=== PATIENT | female | born 1980 | race Caucasian/White ===

== ENCOUNTER 2024-07-14 16:10 | Emergency (ER) | payer MEDICARE, SELFPAY ==
[2024-07-14 16:14] VITALS: BP 101/62
--- NOTE | 2024-07-14 17:37 | ED.GENMED ---
History of Present Illness
<Lindsey Ferris PA-C - Last Filed: 07/15/24 00:28>
General
Chief Complaint: Catheter/Tube Problem
Source: patient
Exam Limitations: none
Time Seen by Provider: 07/14/24 16:58
Nursing documentation reviewed up to this point in time: agreed with
History of Present Illness
History of Present Illness:
Patient is a 44-year-old female with history hypertension, diabetes recently discharged from [facility] 2 days ago for UTI complicated by left kidney abscess with left nephrostomy tube and drain placement presenting today with disconnection
of drain bag. Patient states bag became disconnected earlier this morning accidentally. She came here she was already in the area.
Patient states she was admitted for approximately 10 days at [facility] receiving IV antibiotics prior to drain placement. She was discharged 2 days ago with drain in place and oral antibiotics. She believes she is scheduled for a CT scan
in 2 weeks to reevaluate.
At this time�patient denies any fever, abdominal pain, urinary complaints. No significant back pain.
Patient denies any other concerns today other than reconnection of drain bag
Past History
<Lindsey Ferris PA-C - Last Filed: 07/15/24 00:28>
Past History
ED Past Medical History: [place] and Other
ED Past Surgical History: Appendectomy and Cholecystectomy
Social History
Tobacco: Non-smoker
Alcohol: None
Drug: None
Living: with family
Employment: Employed
Family History
Family History: CAD and Cancer
Review of Systems
<HEIKE Quinonez Last Filed: 07/15/24 00:28>
Review of Systems
Allergies reviewed?: Yes
All Other Systems: ROS reviewed and negative except as documented in HPI and ROS
Phy Exam
<Lindsey Ferris PA-C - Last Filed: 07/15/24 00:28>
Physical Exam
Physical Exam:
Vitals: Patient's vital signs are stable. Afebrile
General: Patient is in no apparent distress
Skin: Warm and dry, no rashes or lesions
Head: Normocephalic, atraumatic
Eyes: Sclera nonicteric. EOMs intact. No nystagmus.
Throat: Protecting airway
Neck: Normal ROM, no cervical spine tenderness, no meningismus
Cardiac: Regular rate and rhythm, no murmurs.
Pulm: Normal respiratory effort, no wheezes, rales, rhonchi heard on exam.
Abdomen: Abdomen soft. No abdominal tenderness.
Back: Left nephrostomy tube in place bandage. No surrounding erythema, warmth, or red streaking.
Extremities: No evidence of cyanosis or edema. Palpable DP pulses bilaterally
Neuro: AAOx3. Grossly intact.
Psychiatric: Normal affect.
Course
<Lindsey Ferris PA-C - Last Filed: 07/15/24 00:28>
Vital Signs
Initial and Last Documented VS:
Initial Vital Signs
Temp Pulse Resp BP Pulse Ox
98.2 F 83 20 101/62 95
07/14/24 16:14 07/14/24 16:14 07/14/24 16:14 07/14/24 16:14 07/14/24 16:14
Last Documented Vital Signs
Temp Pulse Resp BP Pulse Ox
98.2 F 88 16 100/61 98
07/14/24 16:14 07/14/24 19:06 07/14/24 19:06 07/14/24 19:06 07/14/24 19:06
<Brian Holder DO - Last Filed: 07/14/24 18:18>
Vital Signs
Initial and Last Documented VS:
Initial Vital Signs
Temp Pulse Resp BP Pulse Ox
98.2 F 83 20 101/62 95
07/14/24 16:14 07/14/24 16:14 07/14/24 16:14 07/14/24 16:14 07/14/24 16:14
Last Documented Vital Signs
Temp Pulse Resp BP Pulse Ox
98.2 F 88 16 100/61 98
07/14/24 16:14 07/14/24 19:06 07/14/24 19:06 07/14/24 19:06 07/14/24 19:06
<Lindsey Ferris PA-C - Last Filed: 07/15/24 00:28>
MDM/Problems Addressed
Differential Diagnosis Includes:
Not limited to: Nephrostomy tube complication
MDM/Problems Addressed:
44-year-old female with history as documented presenting with dislodged bag from left nephrostomy tube drain. Patient recently discharged from [facility] after admission for UTI complicated by left renal abscess with nephrostomy tube and
drain placement. Patient denies any fever, back pain, abdominal pain, vomiting, or urinary symptoms. Vitals and physical exam as above. Patient afebrile. Left nephrostomy tube in place draining bloody fluid. Bandage in place without surrounding
erythema, warmth, or red streaking. Benign abdominal exam. Patient perfusing well. Case discussed with interventional radiology who recommended replacement of bag with KELLI bulb drain. IR provided set up for KELLI bulb drain. Verbal consent obtained
by patient. KELLI drain attached to left nephrostomy tube which remained in place. Patient tolerated procedure well. Patient will be discharged with follow-up as scheduled upon discharge from [facility] with urology, IR, nephrology. Advised to
continue taking p.o. antibiotics as prescribed. Close return precautions discussed with patient who verbalized understanding.
Chronic conditions affecting care:
UTI complicated by left renal abscess with left nephrostomy tube and drain placement
Acute Exacerbation and/or Progression of Chronic Illness:
Dislodged drain bag from left nephrostomy tube
<Lindsey Ferris PA-C - Last Filed: 07/15/24 00:28>
*Pulse Oximetry
Patient hypoxic: no
*EKG
Interpreted by ED Provider?: NA
*Automobile Drivers Interpretation
Rate: Automobile Drivers- N/A
*Critical Care Note
Total Time (30-74mins, 75-104mins- exclusive of procedures): Not Applicable
<Lindsey Ferris PA-C - Last Filed: 07/15/24 00:28>
Patient Management
Discussion with other providers: [employer] (Case discussed with interventional radiology)
Escalation/DeEscalation of care consider admission/obs:
Discharge with outpatient follow-up
ED Attending Note
<Lindsey Ferris PA-C - Last Filed: 07/15/24 00:28>
-
Portions of this chart may have been created with voice recognition software.� Occasional wrong word or��sound alike� substitutions may have occurred due to the inherent limitations of voice recognition software.
<Brian Holder DO - Last Filed: 07/14/24 18:18>
ED Attending Note
Patient seen and examined by attending physician: Yes
I performed the substantive portion of visit, reviewed & personally made and approve the management plan that is documented in note by myself or KRISTINE.: Yes
ED Attending Note:
I have seen and evaluated the patient with a [id number] encounter. I have spoken to the advance practicer provider and involved in the medical history, the physical exam, medical decision making.
Evaluation and management service: agree unless noted differently below.
Results interpretation: agree unless noted differently below.
Focused HPI: 44-year-old female presenting with dislodged back from her left nephrostomy tube. Patient states he was recently placed and she is currently on antibiotics. Patient states she had a kidney abscess
Physical exam: Sitting bed comfortably. Left nephrostomy tube in place but bag is dislodged
Medical Decision Making: Case discussed with interventional radiology who supplied set up for KELLI drain. The KELLI drain was attached to the nephrostomy tube and we discussed continuing her antibiotics as prescribed
Discharge Plan
Departure
Patient Disposition: Home (Routine Discharge)
Date of Disposition: 07/14/24
Time of Disposition: 18:49
Patient with high blood pressure during this ER visit?: No
Condition: Good
Covid-19: Not Applicable
Discharge Problem:
Complication of nephrostomy tube
Instructions: How to care for a nephrostomy tube
Prescriptions:
No Action
cholecalciferol (vitamin D3) [Vitamin D3] 400 UNITS tablet
400 units PO DAILY
carisoprodol [Soma] 350 MG tablet
350 mg PO QIDPRN PRN (Reason: back pain)
Depo-Provera
104 mg INJ .Q3MTHS
Patient Comments:
q 12 weeks
Tylenol
1,000 mg PO PRN PRN (Reason: aches legs)
metformin 500 MG tablet
500 mg PO BID
carvedilol [Coreg] 25 MG tablet
50 mg PO BID
gabapentin 600 MG tablet
600 mg PO TID
atorvastatin 10 MG tablet
10 mg PO QPM
lorazepam 0.5 MG tablet
0.5 mg PO PRN PRN (Reason: anxiety)
hydrocodone-acetaminophen 1 TABLET tablet
1 tab PO Q4HPRN PRN (Reason: neck and back pain)
ibuprofen 600 MG tablet
600 mg PO TID
fluticasone propionate 1 SPRAY spray,suspension
2 spray intranasal DAILY
escitalopram oxalate 20 MG tablet
20 mg PO DAILY
duloxetine 60 MG capsule,delayed release(DR/EC)
60 mg PO DAILY
Referrals:
Lowell Cooper Jr., DO [Family Provider] - Follow up in 2-3 days
Activity Restrictions/Additional Instructions:
Return to the emergency department with any fevers, chills, severe abdominal pain or back pain, dislodged nephrostomy tube, concerns of clogged tube, worsening in current symptoms, or any other concerns
-As discussed�your nephrostomy tube remained in place while in the emergency department. The bag was replaced with a KELLI bulb drain.
-As discussed�it is imperative that you follow-up appropriately as scheduled with urology, interventional radiology as arranged upon discharge from [facility]
-It is important stable hydrated and get plenty of rest.
Monitor very closely for signs of infection and return promptly to the emergency department. Continue to take antibiotics as prescribed.
Interventions
Interventions:
*Risk Screen - Suicide Last Done: 07/14/24 19:07
*General Assessment Last Done: 07/14/24 16:14
*Neglect/Abuse Screening Last Done: 07/14/24 19:07
*ED- Fall Risk Assessment Last Done: 07/14/24 19:07
*ED COVID-19 Vaccine History Last Done: 07/14/24 18:07
*Nursing Disposition Last Done: 07/14/24 19:07
GT-[place]iz[place]-Pgyvczqtcr Assessment Last Done: 07/14/24 18:07
ED-Female Genitourinary Assessment Last Done: 07/14/24 18:07
Discharge Date and Time
Discharge Date/Time: 07/14/24 19:09
Print Language: INDONESIAN
[2024-07-14 19:06] VITALS: BP 100/61
== END 2024-07-14 19:09 | disposition home or self-care (01) ==
LOC: EMR 16:10
PROVIDERS: EMERGENCY PHYSICIAN Student in an Organized Health Care Education/Training Program; FAMILY PHYSICIAN Family Medicine
DX: T83.022A Displacement of nephrostomy catheter, initial encounter (principal); X58.XXXA Exposure to other specified factors, initial encounter; Z43.6 Encounter for attention to other artificial openings of urinary tract; E11.9 Type 2 diabetes mellitus without complications; I10 Essential (primary) hypertension
CPT/HCPCS: 99282

== ENCOUNTER 2024-07-29 22:40 | Inpatient (IN) | payer MEDICARE, SELFPAY ==
[2024-07-29] VITALS (11 sets, daily range): BP systolic 89–109; BP diastolic 61–77; BMI 36.6; BMI 36.2
[2024-07-29 17:53] LABS: % Basophils 0.6 % (0-2); % Eosinophils 1.4 % (0-6); % Immature Granulocytes 0.5 % (0-0.5); % Lymphocytes 23.9 % (20.5-51.1); % Monocytes 5.3 % (1.7-9.3); % Neutrophils 68.3 % (42.2-75.2); Absolute Basophils 0.1 10^3/uL (0-0.2); Absolute Eosinophils 0.2 10^3/uL (0-0.7); Absolute Immature Granulocytes 0.1 10^3/uL (0-0.05); Absolute Lymphocytes 3.4 10^3/uL (1.2-3.4); Absolute Monocytes 0.8 10^3/uL (0.1-0.6); Absolute Neutrophils 9.6 10^3/uL (1.4-6.5); Hemoglobin 8.4 g/dL (12.0-16.0); Mean Corp Hgb Conc. 31.1 g/dL (33.0-37.0); Mean Corpuscular Hgb 29.3 pg (27.0-31.0); Mean Corpuscular Volume 94.1 fL (81.0-99.0); Nucleated Red Blood Cells % 0 %; Platelet Count 295 10^3/uL (130-400); Red Blood Cell Count 2.87 10^6/uL (4.20-5.40); Red Cell Dist. Width 15.3 % (11.5-14.5); White Blood Cell Count 14.1 10^3/uL (4.8-10.8)
[2024-07-29 18:04] LABS: Urine Albumin 2+ (Neg - Trace); Urine Bilirubin Negative (Negative); Urine Character Cloudy (Clear); Urine Color Yellow; Urine Glucose Negative (Negative); Urine Ketone Negative (Negative); Urine Leukocyte 3+ (Negative); Urine Nitrite Negative (Negative); Urine Occult Blood 4+ (Negative); Urine Urobilinogen Negative (Neg - 1+)
[2024-07-29 18:07] LABS: HCG, Serum Qualitative Screen Negative
[2024-07-29 18:11] LABS: ALT (SGPT) 15 U/L (0-35); AST (SGOT) 16 U/L (14-36); Albumin 4.2 g/dl (3.5-5.0); Alkaline Phosphatase 70 U/L (38-126); Blood Urea Nitrogen 27 mg/dl (7-17); Carbon Dioxide 23 mmol/L (22-30); Chloride 105 mmol/L (98-107); Estimated Creatinine Clearance 73 ml/min; Glucose 193 mg/dl (70-99); Potassium 4.7 mmol/L (3.5-5.1); Sodium 141 mmol/L (135-145); Total Bilirubin 0.4 mg/dl (0.2-1.3); Total Protein 7.8 g/dl (6.3-8.2); eGFR 57.96
--- NOTE | 2024-07-29 18:11 | ED.GENMED ---
History of Present Illness
General
Chief Complaint: Malaise
Source: patient
Exam Limitations: none
Time Seen by Provider: 07/29/24 17:14
History of Present Illness
History of Present Illness:
44-year-old female issue #1 was '[facility] screwed up '. She has had an ongoing issue with UTI pyelonephritis and abscess requiring ongoing drainage. She was recently readmitted to [facility] with anemia. She required a unit of blood. No
source of anemia was found. She was discharged 5 days ago. Since then she has had ongoing fatigue weakness myalgias. Severely fatigued today.
Past History
Past History
ED Past Medical History: [place] and Other
ED Past Surgical History: Appendectomy, Cholecystectomy and Other (Left nephrostomy drain)
Social History
Tobacco: Non-smoker
Alcohol: None
Drug: None
Living: with family
Employment: Employed
Family History
Family History: CAD and Cancer
Review of Systems
Review of Systems
All Other Systems: Not applicable
Constitutional: Reports fatigue and night sweats
Respiratory: Reports no symptoms
Cardiac: Reports no symptoms
ABD/GI: Denies abdominal pain
Phy Exam
Physical Exam
Physical Exam:
GENERAL: Alert and oriented in no apparent distress
EYE: Orbits normal.
NECK: Supple
ENT: Pharynx without erythema
CARDIAC: Regular rate and rhythm without any obvious murmurs.
LUNGS: Clear breath sounds,normal
ABDOMEN: Soft, without focal tenderness or distention. Drain left posterior mid back. No surrounding erythema or drainage. Rectal without significant stool blood test negative
NEUROLOGICAL: Alert and oriented , grossly non-focal
SKIN: Warm and dry, pale. No rash.
MUSCULOSKELETAL: No edema,no deformity.Good color
PSYCH: Normal and appropriate interaction.
Course
Orders/Labs/Results
Orders:
Orders
07/29/24 16:53
EKG [Electrocardiogram (*1)] Urgent
Reason for Study: Palpitations
EKG- Treatment ONCE
07/29/24 17:25
Cardiac Monitoring- Treatment ONCE
IV Insert/Care/Rem.- Treatment PRN
Test Result ONCE
07/29/24 17:32
Type+Screen Urgent
Complete Blood Count/With Diff Urgent
Comprehensive Metabolic Panel Urgent
HCG, Serum Qualitative Screen Urgent
07/29/24 17:45
Urinalysis Reflex To Culture Urgent
Date Specimen was Collected: 07/29/24
Time Specimen was Collected: 17:44
Urine Microscopic Reflex Cult Urgent
Urine Culture Urgent
SANGITA Source: U
Specimen Description:
Date Specimen was Collected: 07/29/24
Time Specimen was Collected: 17:44
07/29/24 18:33
CT Pe/abd/pel W Urgent
Reason For Exam: fatigue tachycardia(PE study). L nephrostomy.
07/29/24 20:58
Urinalysis Reflex To Culture Urgent
Date Specimen was Collected: 07/29/24
Time Specimen was Collected: 20:52
Comment: Clean Catch
Urine Microscopic Reflex Cult Urgent
Urine Culture Urgent
SANGITA Source: U
Specimen Description:
Date Specimen was Collected: 07/29/24
Time Specimen was Collected: 20:52
Abnormal Lab Results
07/29/24 07/29/24 07/29/24
17:32 17:45 20:58
WBC 14.1 H 10^3/uL
(4.8-10.8)
RBC 2.87 L 10^6/uL
(4.20-5.40)
Hgb 8.4 L g/dL
(12.0-16.0)
Hct 27.0 L %
(37.0-47.0)
MCHC 31.1 L g/dL
(33.0-37.0)
RDW 15.3 H %
(11.5-14.5)
MPV 11.0 H fL
(7.4-10.4)
Abs Immat Gran (auto) 0.1 H 10^3/uL
(0-0.05)
Absolute Neuts (auto) 9.6 H 10^3/uL
(1.4-6.5)
Absolute Monos (auto) 0.8 H 10^3/uL
(0.1-0.6)
BUN 27 H mg/dl
(7-17)
Creatinine 1.2 H mg/dL
(0.6-1.0)
Glucose 193 H mg/dl
(70-99)
Ur Occult Blood Reflex 4+ A 2+ A
(Negative) (Negative)
Leukocyte Esterase Rfl 3+ A 3+ A
(Negative) (Negative)
Urine RBC 11-15 A /HPF 7-10 A /HPF
(0-2) (0-2)
Urine WBC (Reflex) >100 A /HPF 90-100 A /HPF
(0-5) (0-5)
Urine Bacteria (Reflex) Moderate A Few A
(Negative) (Negative)
Urine Albumin (Reflex) 2+ A 1+ A
(Neg - Trace) (Neg - Trace)
07/29/24 17:32
07/29/24 17:32
Vital Signs
Initial and Last Documented VS:
Initial Vital Signs
Temp Pulse Resp BP Pulse Ox
98.4 F 154 18 109/77 98
07/29/24 16:49 07/29/24 16:49 07/29/24 16:49 07/29/24 16:49 07/29/24 16:49
Last Documented Vital Signs
Temp Pulse Resp BP Pulse Ox
98.4 F 91 16 108/71 99
07/29/24 16:49 07/29/24 20:15 07/29/24 20:15 07/29/24 21:00 07/29/24 21:00
MDM/Problems Addressed
Differential Diagnosis Includes:
Patient describing possible recurrent infectious issues. She states she had a CT 4 days ago that showed some improvement with hopes of removing the drain in 2 weeks. She is still on antibiotics. It is a cephalosporin. She had night sweats last
evening. She has had no blood or tarry stools. Source of her anemia is unknown. She did get a unit of blood while in the hospital. She left had a hemoglobin of 8 point something. Hemoglobin is 8.4 now. Leukocytosis nonspecific at this time.
Trying to get test results from [facility].
*Radiology
Radiology exam reviewed: radiology read reviewed (Tip of tube in cortex of kidney. Some inflammatory changes)
*Pulse Oximetry
Patient hypoxic: no
*Legal Practice Manager Interpretation
Rate: tachycardiac
Interpretation: abnormal
Heart Rate: 150
Rhythm: sinus
*Critical Care Note
Total Time (30-74mins, 75-104mins- exclusive of procedures): 40
Update Note
Update Note:
We will repeat the urine. Is contaminated. Patient became quite tachycardic sinus tach in the 140s returning from the bathroom. She states she does have tachycardia issues in the past.
Complicated patient with recent UTI/pyelonephritis/kidney abscess. Currently has nephrostomy tube. Recurring fever night sweats leukocytosis. Anemia appears stable although etiology uncertain. Possible anemia of chronic disease. Warrants
inpatient management
ED Attending Note
-
Portions of this chart may have been created with voice recognition software.� Occasional wrong word or��sound alike� substitutions may have occurred due to the inherent limitations of voice recognition software.
Discharge Plan
Departure
Patient Disposition: Admit
Date of Disposition: 07/29/24
Time of Disposition: 21:37
Admit to: Telemetry
Presentation/result/management discussed w/ accepting MD/DO: Hospitalist
Discharge Problem:
History of renal abscess, History of pyelonephritis, Possible recurring infection
Prescriptions:
No Action
cholecalciferol (vitamin D3) [Vitamin D3] 400 UNITS tablet
400 units PO DAILY
carisoprodol [Soma] 350 MG tablet
350 mg PO QIDPRN PRN (Reason: back pain)
Depo-Provera
104 mg INJ .Q3MTHS
Patient Comments:
q 12 weeks
Tylenol
1,000 mg PO PRN PRN (Reason: aches legs)
metformin 500 MG tablet
500 mg PO BID
carvedilol [Coreg] 25 MG tablet
50 mg PO BID
gabapentin 600 MG tablet
600 mg PO TID
atorvastatin 10 MG tablet
10 mg PO QPM
lorazepam 0.5 MG tablet
0.5 mg PO PRN PRN (Reason: anxiety)
hydrocodone-acetaminophen 1 TABLET tablet
1 tab PO Q4HPRN PRN (Reason: neck and back pain)
ibuprofen 600 MG tablet
600 mg PO TID
fluticasone propionate 1 SPRAY spray,suspension
2 spray intranasal DAILY
escitalopram oxalate 20 MG tablet
20 mg PO DAILY
duloxetine 60 MG capsule,delayed release(DR/EC)
60 mg PO DAILY
Referrals:
Lowell Cooper Jr., DO [Family Provider] -
Interventions
Interventions:
*Risk Screen - Suicide Last Done: 07/29/24 16:49
*General Assessment Last Done: 07/29/24 16:49
*ED- Fall Risk Assessment Last Done: 07/29/24 16:49
*ED COVID-19 Vaccine History Last Done: 07/29/24 16:49
Discharge Date and Time
Print Language: NORTHERN IRISH
[2024-07-29 18:17] LABS: Urine Squamous Cell >30 /LPF (Few)
[2024-07-29 18:18] LABS: Urine Bacteria Moderate (Negative); Urine White Cell >100 /HPF (0-5)
[2024-07-29 21:13] LABS: Urine Albumin 1+ (Neg - Trace); Urine Bilirubin Negative (Negative); Urine Character Clear (Clear); Urine Color Yellow; Urine Glucose Negative (Negative); Urine Ketone Negative (Negative); Urine Leukocyte 3+ (Negative); Urine Nitrite Negative (Negative); Urine Occult Blood 2+ (Negative); Urine Urobilinogen Negative (Neg - 1+)
[2024-07-29 21:23] LABS: Urine Squamous Cell 16-20 /LPF (Few); Urine White Cell 90-100 /HPF (0-5)
[2024-07-29 21:24] LABS: Urine Bacteria Few (Negative)
--- NOTE | 2024-07-29 22:20 | HPS.HSE ---
Family Physician
-
Family Physician: Lowell Cooper
Chief Complaint
-
chills
History of Present Illness
44-year-old female past medical history of UTI, left kidney abscess status post nephrostomy tube, anemia of unknown etiology, diabetes, cholelithiasis status post cholecystectomy, chronic lower back pain, migraines, endometriosis, asthma, sinus
tachycardia, presenting with chills and whole body sweats and whole body pain starting yesterday.
Patient was originally admitted on May 12 at [facility] for UTI and confusion. She was treated with antibiotics. She was admitted again on July 02 for UTI and left kidney abscess. She had nephrostomy tube placed. 1 week later he
was admitted third time for anemia. She was found to have a hemoglobin of 6.8. She has had intermittent anemia since she was a teenager. She was given 1 unit of blood. No cause for the anemia could be found.
She had her nephrostomy tube changed this past week. Prior to her tube being changed she was having bloody drainage from the tube. Since the tube has been changed she has had no output from the tube. She is having pain at the tube site. She
denies any urinary symptoms, burning with urination or blood in the urine. She denies any abdominal pain. She had some nausea but denies vomiting or diarrhea.
She is finishing a 18-day course of cefuroxime tomorrow.
She has been having dry cough since mid June with some shortness of breath.
Medical History
Past Medical History
Past Medical History: Reports Other (UTI, left kidney abscess status post nephrostomy tube, anemia of unknown etiology, diabetes, cholelithiasis status post cholecystectomy, chronic lower back pain, migraines, endometriosis, asthma, sinus
tachycardia)
Past Surgical History: Reports Other (Appendectomy, cholecystectomy, wisdom teeth extraction, breast lump removed,)
Social History
Tobacco: Non-smoker
Alcohol: None
Drug: None
Family History
Family History: Not pertinent
Allergies / Home Medications
Allergies reflects when Allergies were last updated in [facility].
Home Medications with original date entered in [facility]
Allergy/Medication List:
Allergies
Allergy/AdvReac Type Severity Reaction Status Date / Time
Sulfa (Sulfonamide Allergy HIVES, SOB Verified 07/29/24 16:48
Antibiotics)
bee stings Allergy severe Uncoded 07/29/24 16:48
swelling
Home Medications
cholecalciferol (vitamin D3) 10 mcg (400 unit) tablet (Vitamin D3) 400 units PO DAILY 02/07/08
Depo-Provera 104 mg INJ .Q3MTHS 07/02/09
Tylenol 1,000 mg PO PRN PRN aches legs 07/02/09
carisoprodol 350 mg tablet (Soma) 350 mg PO QIDPRN PRN back pain 07/02/09
atorvastatin 10 mg tablet 10 mg PO DAILY 09/03/20
carvedilol 25 mg tablet (Coreg) 50 mg PO BID 09/03/20
duloxetine 60 mg capsule,delayed release 90 mg PO DAILY 09/03/20
fluticasone propionate 50 mcg/actuation nasal spray,suspension 2 spray intranasal DAILY 09/03/20
ibuprofen 600 mg tablet 600 mg PO BID 09/03/20
lorazepam 0.5 mg tablet 0.5 mg PO PRN PRN anxiety 09/03/20
metformin 500 mg tablet 500 mg PO BID 09/03/20
calcium 500 mg tablet 500 mg PO DAILY 07/29/24
ferrous sulfate 27 mg iron tablet 27 mg PO .2 TIMES A WEEK 07/29/24
magnesium 200 mg tablet 200 mg PO DAILY 07/29/24
morphine 15 mg immediate release tablet 15 mg PO Q4H PRN pain 07/29/24
pregabalin 200 mg capsule 200 mg PO TID 07/29/24
sertraline 25 mg tablet (Zoloft) 25 mg PO HS 07/29/24
zinc 10 mg tablet 10 mg PO DAILY 07/29/24
Review of Systems
-
History Source: Patient
A 12 point ROS was completed and negative except as noted: Yes
Constitutional: Reports No Symptoms
EENT: Reports No Symptoms
Respiratory: Reports See HPI
Cardiac: Reports No Symptoms
Abdomen/GI: Reports See HPI
: Reports See HPI
Musculoskeletal: Reports No Symptoms
Skin: Reports No Symptoms
Neurological: Reports No Symptoms
Endocrine: Reports No Symptoms
Hematologic/Lymphatic: Reports No Symptoms
Psych: Reports No Symptoms
Physical Exam
Vital Signs
Vital Signs
Temp Pulse Resp BP Pulse Ox
98.0 F 94 14 108/71 100
07/29/24 22:18 07/29/24 21:45 07/29/24 21:30 07/29/24 21:00 07/29/24 21:45
Physical Exam
General: Well Developed, Well Nourished and No Apparent Distress
HEENT: NormoCephalic, Moist mucous membranes and Atraumatic
Respiratory: Clear
Cardiac: S1/S2 and Regular Rhythm; No Murmur or Rub
GI: Soft, Non Tender, Non Distended and Normal Bowel Sounds; No Organomegaly
Rectal: Deferred by Provider
Musculoskeletal: No Clubbing, No Cyanosis and No Edema
Skin: No Rash
Neuro: Nonfocal/grossly intact
Laboratory Results
-
07/29/24 17:32
07/29/24 17:32
Laboratory Results
Total Bilirubin 0.4 mg/dl (0.2-1.3) 07/29/24 17:32
AST 16 U/L (14-36) 07/29/24 17:32
ALT 15 U/L (0-35) 07/29/24 17:32
Alkaline Phosphatase 70 U/L (38-126) 07/29/24 17:32
Data Reviewed
-
Lab Data: Labs Reviewed by me
Old Records: Reviewed
Impression/Plan
-
IMPRESSION:
PLAN:
# Sweating/chills/leukocytosis unclear etiology could be residual left kidney abscess versus persistent UTI
# History of left kidney abscess status post nephrostomy tube
-Leukocytosis
-Urinalysis shows 90-100 WBC, +3 leukocyte esterase
-Check urine culture, blood cultures
-CT abdomen pelvis shows left percutaneous nephrostomy tube with surrounding inflammatory change, mild left pelvocalicectasis without nba hydronephrosis
-Need to obtain records from [place] regarding prior CT scan for comparison
-Empiric cefepime
-Given lack of drainage from nephrostomy tube, seems that it might be able to be removed if resolved after comparison with prior CAT scans
-Awaiting records from [place]
-ID consulted
# Chronic normocytic anemia unclear etiology
-Hemoglobin 8.4 seems to be not too far from her baseline
-May be anemia of chronic disease
-Check iron studies, B12 and folate
# Mild BELEM
-Creatinine 1 point
-IV fluids
# Subacute cough/dyspnea
-Check chest x-ray
-Check flu and COVID
Type 2 diabetes
-Hold metformin
-ISS
Chronic lower back pain
-Continue morphine, duloxetine, pregabalin, Motrin
History of migraines
Endometriosis history
History of cholelithiasis status post cholecystectomy
Mild asthma
History of sinus tachycardia
-Continue Coreg
Anxiety/depression
-Continue sertraline, Ativan
Full code
DVT prophylaxis�heparin
Diabetic Diet
[2024-07-29 23:21] LABS: COVID-19 Antigen Negative (Negative)
[2024-07-30] MEDS: MORPHINE SULFATE 15 MG PO ×5 (00:30→20:42)
[2024-07-30] MEDS: ATIVAN 0.5 MG PO ×2 (00:31→21:30)
[2024-07-30] MEDS: NSS 1000 IV ×2 (00:31→08:29)
[2024-07-30] MEDS: MAXIPIME 2000 MG IV (00:32)
[2024-07-30 00:43] LABS: Glucose - Point of Care 139 mg/dl (70-99)
[2024-07-30] MEDS: STERILE WATER FOR INJECTION 10 ML IV ×2 (01:02→14:21)
[2024-07-30] MEDS: LYRICA 200 MG PO ×4 (01:16→21:29)
[2024-07-30] MEDS: ZOLOFT 25 MG PO ×2 (01:16→21:30)
[2024-07-30 07:01] VITALS: BP 106/66
[2024-07-30 07:19] LABS: ALT (SGPT) 13 U/L (0-35); AST (SGOT) 14 U/L (14-36); Albumin 3.4 g/dl (3.5-5.0); Alkaline Phosphatase 53 U/L (38-126); Blood Urea Nitrogen 26 mg/dl (7-17); Calcium 8.8 mg/dl (8.4-10.2); Carbon Dioxide 22 mmol/L (22-30); Chloride 105 mmol/L (98-107); Estimated Creatinine Clearance 95 ml/min; Glucose 226 mg/dl (70-99); Iron 90 ug/dl (37-170); Potassium 4.6 mmol/L (3.5-5.1); Sodium 136 mmol/L (135-145); Total Bilirubin 0.3 mg/dl (0.2-1.3); Total Protein 6.4 g/dl (6.3-8.2); eGFR > 60.00
[2024-07-30 07:29] LABS: Percent Saturation 38 % (20-50); Total Iron Binding Capacity 233 ug/dl (265-497)
[2024-07-30 07:41] LABS: Glucose - Point of Care 143 mg/dl (70-99)
[2024-07-30 07:52] LABS: Ferritin 46.3 ng/ml (6.24-137)
[2024-07-30] MEDS: NOVOLOG FLEXPEN-LOW RESISTANCE SC (07:58)
[2024-07-30 08:24] LABS: Folate 6.1 ng/ml (2.76-20); Vitamin B12 337 pg/ml (239-931)
[2024-07-30] MEDS: CYMBALTA DELAYED RELEASE 90 MG PO (08:27)
[2024-07-30] MEDS: LIPITOR 10 MG PO (08:27)
[2024-07-30] MEDS: COREG 50 MG PO ×2 (08:27→21:29)
[2024-07-30] MEDS: MOTRIN 600 MG PO ×2 (08:28→21:30)
[2024-07-30] MEDS: MAGNESIUM OXIDE 250 MG PO (08:28)
[2024-07-30] MEDS: OSCAL CAL 500 500 MG PO (08:28)
[2024-07-30] MEDS: VITAMIN D3 (cholecalciferol) 10 MCG PO (08:28)
[2024-07-30 09:43] LABS: % Basophils 0.5 % (0-2); % Eosinophils 2.5 % (0-6); % Immature Granulocytes 0.4 % (0-0.5); % Lymphocytes 36.4 % (20.5-51.1); % Neutrophils 53.2 % (42.2-75.2); Absolute Basophils 0.1 10^3/uL (0-0.2); Absolute Eosinophils 0.2 10^3/uL (0-0.7); Absolute Lymphocytes 3.4 10^3/uL (1.2-3.4); Absolute Monocytes 0.7 10^3/uL (0.1-0.6); Hematocrit 20.7 % (37.0-47.0); Hemoglobin 6.5 g/dL (12.0-16.0); Mean Corp Hgb Conc. 31.4 g/dL (33.0-37.0); Mean Corpuscular Volume 95.4 fL (81.0-99.0); Mean Platelet Volume 11.5 fL (7.4-10.4); Nucleated Red Blood Cells % 0 %; Platelet Count 230 10^3/uL (130-400); Red Blood Cell Count 2.17 10^6/uL (4.20-5.40); Red Cell Dist. Width 15.1 % (11.5-14.5); White Blood Cell Count 9.3 10^3/uL (4.8-10.8)
[2024-07-30 12:01] LABS: Glucose - Point of Care 174 mg/dl (70-99)
[2024-07-30 12:47] LABS: Glucose - Point of Care 200 mg/dl (70-99)
[2024-07-30] MEDS: NOVOLOG FLEXPEN-LOW RESISTANCE 2 UNITS SC (12:56)
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
[2024-07-30] MEDS: ROCEPHIN 1000 MG IV (14:20)
--- NOTE | 2024-07-30 14:55 | W.PN.HOSP.TC ---
Today's Communication/Plan
-
Continue with cefepime
Obtained recent CT images from [place]
Transfuse 1 unit of PRBC
Assessment / Plan
Assessment / Plan
# Sweating/chills/leukocytosis unclear etiology could be residual left kidney abscess versus persistent UTI
# History of left kidney abscess status post nephrostomy tube
-Leukocytosis
-Urinalysis shows 90-100 WBC, +3 leukocyte esterase
-Check urine culture, blood cultures
-CT abdomen pelvis shows left percutaneous nephrostomy tube with surrounding inflammatory change, mild left pelvocalicectasis without nba hydronephrosis
-Need to obtain records from [place] regarding prior CT scan for comparison
-Empiric cefepime
-Given lack of drainage from nephrostomy tube, seems that it might be able to be removed if resolved after comparison with prior CAT scans
-Awaiting records from [place]
-ID consulted
# Acute on chronic normocytic anemia unclear etiology
-Hemoglobin 8.4 on admission but dropped to 6.5 today. Some of it may be dilutional.
-4 years ago patient hematology well including a bone marrow biopsy for anemia and apparently was negative. She says her blood counts were decent before May when all the problems started. She was noted to be anemic at [facility] and
needed 1 unit of blood.
-No history of GI bleed. She had heme-negative stools. Current iron studies does not suggest iron deficiency anemia.
Suspect anemia of chronic inflammation with what is going on. Transfuse 1 unit of PRBC and follow.
# Mild BELEM
-Creatinine 1.2
- Improved to 0.9
- hold further IV fluids
# Subacute cough/dyspnea
- chest x-ray no acute cardiopulmonary process
-Negative flu and COVID
Type 2 diabetes
-Hold metformin
-ISS
Chronic lower back pain
-Continue morphine, duloxetine, pregabalin, Motrin
History of migraines
Endometriosis history
History of cholelithiasis status post cholecystectomy
Mild asthma
History of sinus tachycardia
-Continue Coreg
Anxiety/depression
-Continue sertraline, Ativan
Full code
DVT prophylaxis�heparin
Diabetic Diet
Total time spent on today's encounter was 52 minutes which included time spent in counseling the patient/family regarding diagnosis and treatment plan as listed above, goals of care, and symptom management. Case was discussed with nursing staff,
specialists, and care coordinators/case management. All labs and imaging personally reviewed by me. Remainder the time spent in detailed review of previous records, lab data, imaging, and other medical provider documentation.
Anticipated Discharge: > 48 hours
Subjective/Interval History
-
Date of Service: July 30, 2024
Today without any fever or sweats. She had associated fatigue and weakness with her fevers at home.
Left flank pain okay today.
Denies any dysuria, frequency of urine, or hematuria.
No nausea vomiting.
No dizziness.
Objective Data
-
Labs:
Laboratory Results
07/30/24
05:51
WBC 9.3
Hgb 6.5 L* D
Hct 20.7 L*
Plt Count 230 D
Sodium 136
Potassium 4.6
Chloride 105
Carbon Dioxide 22
BUN 26 H
Creatinine 0.9
Glucose 226 H
Calcium 8.8
Total Bilirubin 0.3
AST 14
ALT 13
Alkaline Phosphatase 53
Vital Signs:
Vital Signs
Temp Pulse Resp BP Pulse Ox
98.2 F 139 20 106/66 98
07/30/24 07:01 07/30/24 07:01 07/30/24 07:01 07/30/24 07:01 07/30/24 08:45
I&O
07/29/24 07/30/24 07/31/24
06:59 06:59 06:59
Intake Total 480 / 480
Balance 480 / 480
Review of Systems
-
Respiratory: Denies Trouble Breathing
Cardiac: Denies Chest Pain or Palpitations
Physical Exam
-
General: Comfortable
HEENT: Moist Mucous Membranes
Respiratory: Clear to Auscultation
Cardiac: Regular Rhythm, S1/S2 and Tachycardic
GI: Soft, Nontender, Nondistended and Normal Bowel Sounds
Genito-urinary: Costovertebral Angle Tend (Left side. Has a nephrostomy tube without a drainage bag.)
Neuro: AO x 3
Data Reviewed
-
Labs: Labs Reviewed by me
[2024-07-30 15:45] VITALS: BP 88/53
[2024-07-30 16:01] VITALS: BP 100/58
[2024-07-30 17:04] LABS: Glucose - Point of Care 162 mg/dl (70-99)
[2024-07-30] MEDS: NOVOLOG FLEXPEN-LOW RESISTANCE 1 UNITS SC (17:32)
[2024-07-30 18:34] VITALS: BP 91/60
[2024-07-30 22:07] LABS: Glucose - Point of Care 144 mg/dl (70-99)
[2024-07-30 23:47] VITALS: BP 103/56
[2024-07-31] VITALS (12 sets, daily range): BP systolic 88–121; BP diastolic 51–66
[2024-07-31] MEDS: MORPHINE SULFATE 15 MG PO ×5 (00:32→19:58)
[2024-07-31 07:27] LABS: Glucose - Point of Care 123 mg/dl (70-99)
[2024-07-31] MEDS: NOVOLOG FLEXPEN-LOW RESISTANCE SC (07:32)
[2024-07-31] MEDS: COREG PO (08:07)
[2024-07-31] MEDS: CYMBALTA DELAYED RELEASE 90 MG PO (08:08)
[2024-07-31] MEDS: LIPITOR 10 MG PO (08:08)
[2024-07-31] MEDS: LYRICA 200 MG PO ×3 (08:08→21:12)
[2024-07-31] MEDS: MAGNESIUM OXIDE 250 MG PO (08:08)
[2024-07-31] MEDS: VITAMIN D3 (cholecalciferol) 10 MCG PO (08:09)
[2024-07-31] MEDS: MOTRIN 600 MG PO (08:09)
[2024-07-31] MEDS: OSCAL CAL 500 500 MG PO (08:09)
[2024-07-31 08:29] LABS: Hematocrit 18.5 % (37.0-47.0); Hemoglobin 5.8 g/dL (12.0-16.0); Mean Corp Hgb Conc. 31.4 g/dL (33.0-37.0); Mean Corpuscular Hgb 29.4 pg (27.0-31.0); Mean Corpuscular Volume 93.9 fL (81.0-99.0); Platelet Count 202 10^3/uL (130-400); Red Blood Cell Count 1.97 10^6/uL (4.20-5.40); Red Cell Dist. Width 16.3 % (11.5-14.5); White Blood Cell Count 9.1 10^3/uL (4.8-10.8)
[2024-07-31 08:44] LABS: Blood Urea Nitrogen 40 mg/dl (7-17); Calcium 8.6 mg/dl (8.4-10.2); Carbon Dioxide 24 mmol/L (22-30); Chloride 105 mmol/L (98-107); Estimated Creatinine Clearance 85 ml/min; Glucose 112 mg/dl (70-99); Potassium 4.9 mmol/L (3.5-5.1); Sodium 136 mmol/L (135-145); eGFR > 60.00
[2024-07-31] MEDS: VITAMIN B-12 1000 MCG PO (09:09)
[2024-07-31] MEDS: MIRALAX PO ×2 (09:09→09:12)
[2024-07-31] MEDS: SENOKOT-S 1 TABLET PO ×2 (09:09→19:55)
--- NOTE | 2024-07-31 10:19 | W.PN.ID1 ---
Addendum entered and electronically signed by Luke Marc DO 07/31/24 16:23:
I saw and evaluated the patient. I reviewed the resident�s note and agree with findings and plan as documented in the resident�s note.
White count remains normal, although hemoglobin noted to be trending down.
No dysuria.
Continue with ceftriaxone for today, although may discontinue within the next 24 hours if cultures otherwise remain negative.
Original Note:
Date of Service
Date of Service: July 31, 2024
Today's Communication
continue antibiotics
Assessment / Plan
Leukocytosis
Subjective fevers (afebrile since admission)
Anemia
-ongoing blood transfusion(HB 5.8)
Pyuria without dysuria
Chronic back pain
Obesity (BMI = 36)
Migraines
Endometriosis
Asthma
Left renal abscess secondary to E. coli
Recommendations:
Continue ceftriaxone 1 g IV every 24 hours.
Await further culture data to guide further antimicrobial selection and potential de-escalation.
HB 5.8, ongoing blood transfusion with 1 unit PRBC
Follow hemoglobin.
Monitor temp curve and WBC.
Chief Complaint
-: Fever
Subjective / Review of Systems
Review of Systems: No Fever and Chills
Vital Signs / Physical Exam
Vital Signs
Vital Signs
Temp Pulse Resp BP Pulse Ox
98.3 F 104 18 88/55 96
07/31/24 09:46 07/31/24 09:46 07/31/24 09:46 07/31/24 09:46 07/31/24 07:00
Physical Exam
Constitutional: No Acute Distress
Head: Normocephalic
Eyes: Pupils Equal and Pupils Round
Cardiovascular: Regular Rate and S1/S2
Pulmonary: Non Labored
Gastrointestinal: Soft, Non Tender, Non Distended and Other (left percutaneous nephrostomy tubes in place. Exit site without erythema or tenderness. Dressing intact)
Skin: Warm and Dry
Neurological: AO x 3
Psychological: Calm
Objective Data
Lab Data
Lab Results
07/31/24 07:31
Estimated Creat Clear 85 ml/min 07/31/24 07:31
Total Bilirubin 0.3 mg/dl (0.2-1.3) 07/30/24 05:51
AST 14 U/L (14-36) 07/30/24 05:51
ALT 13 U/L (0-35) 07/30/24 05:51
Alkaline Phosphatase 53 U/L (38-126) 07/30/24 05:51
Most recent labs reviewed.
Micro Results:
07/29/24 17:45 Urine Culture - Final
Urine
07/29/24 20:58 Urine Culture - Final
Urine
07/29/24 22:50 Blood Culture - Preliminary
Blood/Venous No Growth in 24 hours- Final report to follow
07/29/24 22:50 Blood Culture - Preliminary
Blood/Venous No Growth in 24 hours- Final report to follow
07/29/24 22:50 Influenza Types A & B (RUBI) - Final
Nasal Swab Negative for Influenza A & B, NAAT
Negative results must be combined with clinical observations
and patient history.
Nucleic Acid Amplification test (NAAT)performed on the
[employer] platform.
Imaging:
07/29/2024 CT abdomen/pelvis: A left percutaneous nephrostomy tube is noted, with the pigtail portion located somewhat peripherally within the lateral midpole cortex anteriorly, with surrounding inflammatory changes. Mild left pelvocaliectasis
without nba hydronephrosis.
--- NOTE | 2024-07-31 11:32 | W.PN.HOSP.TC ---
Addendum entered and electronically signed by Gerber Mancilla MD 07/31/24 12:17:
Per RN, Pt just had a bm and found to be Heme positive. Will ask GI for input. DC ibuprofen.
Original Note:
Today's Communication/Plan
-
2U of PRBC
IV abx
await records
Heme eval
Assessment / Plan
Assessment / Plan
# Sweating/chills/leukocytosis unclear etiology could be residual left kidney abscess versus persistent UTI
# History of left kidney abscess status post nephrostomy tube
-Leukocytosis
-Urinalysis shows 90-100 WBC, +3 leukocyte esterase
-Check urine culture, blood cultures in lab
-CT abdomen pelvis shows left percutaneous nephrostomy tube with surrounding inflammatory change, mild left pelvocalicectasis without nba hydronephrosis
-Need to obtain records from [place] regarding prior CT scan for comparison
-Empiric cefepime transitioned to [place]
-Given lack of drainage from nephrostomy tube, seems that it might be able to be removed if resolved after comparison with prior CAT scans
-Patient also having. Interventional radiologist on 07/25 and had repeat outpatient appointment in 2 weeks. Patient completed antibiotics prior to arrival
-Awaiting records from [place]
-ID consulted
# Acute on chronic normocytic anemia unclear etiology
# Mild B12 deficiency
-Hemoglobin 8.4 on admission. Hemoglobin of 5.8 and will transfer to units of PRBC.
-She was noted to be anemic at [facility] and needed 1 unit of blood.
-No history of GI bleed. She had heme-negative stools in ER. Current iron studies does not suggest iron deficiency anemia.
-Suspect anemia of chronic inflammation with what is going on.
-Start B12 supplementation. Check reticulocyte count, LDH and haptoglobin. Doubt hemolysis.
-Will ask him input
# Mild BELEM
-Creatinine 1.2
- Improved
- hold further IV fluids
# Subacute cough/dyspnea
- chest x-ray no acute cardiopulmonary process
-Negative flu and COVID
Type 2 diabetes
-Hold metformin
-ISS. A1Cat 6.
Chronic lower back pain
-Continue morphine, duloxetine, pregabalin, Motrin
History of migraines
Endometriosis history
History of cholelithiasis status post cholecystectomy
Mild asthma
History of sinus tachycardia
-Continue Coreg but will reduce dose to 3.125mg BID as with soft BP.
Anxiety/depression
-Continue sertraline, Ativan
Morbid obesity due to excess calories
Affects all aspects of medical care
Full code
DVT prophylaxis�heparin
Diabetic Diet
Anticipated Discharge: > 48 hours
Subjective/Interval History
-
Date of Service: July 31, 2024
feeling weak
Denies any blood in urine or stool.
Denies any back pain.
States she was found to have anemia and [facility] received blood. She was evaluated by hematology.
Denies any prior history of endoscopy or colonoscopy.
Objective Data
-
Labs:
Laboratory Results
07/31/24 07/31/24
07:31 16:00
WBC 9.1
Hgb 5.8 L* Pending
Hct 18.5 L* Pending
Plt Count 202
Sodium 136
Potassium 4.9
Chloride 105
Carbon Dioxide 24
BUN 40 H
Creatinine 1.0
Glucose 112 H
Calcium 8.6
Vital Signs:
Vital Signs
Temp Pulse Resp BP Pulse Ox
98.3 F 104 18 88/55 96
07/31/24 09:46 07/31/24 09:46 07/31/24 09:46 07/31/24 09:46 07/31/24 07:00
I&O
07/30/24 07/31/24 08/01/24
06:59 06:59 06:59
Intake Total 480 / 480 1779 0 / 0
Balance 480 / 480 1779 0 0
Physical Exam
-
General: No Apparent Distress, Comfortable and Morbidly Obese
HEENT: Moist Mucous Membranes and Other (pale)
Respiratory: Clear to Auscultation
Cardiac: Regular Rhythm, S1/S2 and Tachycardic
GI: Soft, Nontender, Nondistended and Normal Bowel Sounds
Genito-urinary: Costovertebral Angle Tend (Left side. Has a nephrostomy tube without a drainage bag.)
Neuro: Awake and AO x 3
Psych: Calm
Data Reviewed
-
Total Time Spent with Patient (in minutes): 58
[2024-07-31 11:55] LABS: Reticulocyte Count 4.7 % (0.4-2.8)
[2024-07-31 12:03] LABS: Glucose - Point of Care 174 mg/dl (70-99)
--- NOTE | 2024-07-31 12:39 | CON.ONC ---
Impression
Impression
44 year old female
Symptomatic Anemia
Leukocytosis
Plan
Plan
#Symptomatic Anemia, likely of chronic disease vs. component of acute blood loss
- iron 90, saturation 38%, TIBC 233, Ferritin 46.3. LDH 143, reticulocyte count elevated 4.7%, haptoglobin pending. B12 <400, folate 6.1.
- hgb was 8.4 on admission, dropped to 6.5 after 1L fluids and then dropped again to 5.8. S/p 2U pRBCs.
- Suspect ACD due to chronic UTI/Pyelonephritis/Abscess with compounding hemodilution, however repeat stool test was heme positive. Less likely hemolytic component given lab values and clinical presentation.
- Would benefit from further GI workup for heme positive stool in the setting of acute on chronic anemia requiring transfusion with soft pressures
#Leukocytosis
- Patient does endorse history of chronic leukocytosis prompting BMBx in 2020, which was benign. WBCs 14.1 on admission, now 9.1 today. Obesity as a chronic inflammatory condition could be contributing to the chronic leukocytosis seen on outpatient
labs, however Leukocytosis this admission almost certainly reactive to infection.
Patient History
History of Present Illness
Tila is a 44 year old female with a past medical history significant for ongoing L pyelonephritis/Chronic UTI with L renal abscess s/p nephrostomy tube, chronic anemia of unknown etiology, T2DM, chronic low back pain, migraines, endometriosis,
mild intermittent asthma, anxiety/depression who presented for severe fatigue and night sweats.
She was initially seen at [place] for complaints of UTI and AMS. She was discharged on oral abx but returned with symptoms of UTI and was found to have L renal abscess. Nephrostomy tube was placed and she was discharged, only to return again to
[place] for similar sx and was admitted again. During that admission she had hgb of 7.2 which dropped to 6.8 for which she was transfused. She was discharged with a hgb of 9.4. Subsequent OP labs showed hgb of 9.1. She continued to feel fatigued
and weak, however, and 24 hours before presentation to developed fever and whole body chills. On admission to she was found to have a hgb of 8.4. Of note, she reports chronic symptoms of anemia since she was 15 years old requiring oral Iron
supplementation. She also reports a Bone marrow biopsy done 4 years ago at [place] (Dr. Garcia?) for recurrent asymptomatic leukocytosis (13 -18) in the setting of anemia. The bone marrow biopsy per patient did not show any abnormalities and she
was told to follow up as usual with her PCP. Since May she reports an unintentional weight loss of around 20lbs. Aside from this most recent episode, she has not been experiencing any night sweats or persistent fevers. There are no reports of
bruising on the trunk, or legs outside the context of venipuncture. She reports no gross hematuria, melena, hematochezia, or hemoptysis. There is no reported family history of blood related disorders.
Upon admission she received 1L of fluid after which her hgb dropped from 8.4 to 6.5. Her stool was heme negative in the ED and there were no signs of bleeding. Repeat hgb showed further drop to 5.8 for which she was ordered 2U pRBCs. Repeat stool
heme test today was positive for occult blood.
Past-Medical/Surgical History
Past Medical History: L pyelonephritis/Chronic UTI with L renal abscess s/p nephrostomy tube, chronic anemia of unknown etiology, T2DM, chronic low back pain, migraines, endometriosis, mild intermittent asthma, anxiety/depression
Past Surgical History: Appendectomy 1996, Ex Lap 1998,2000, wisdom teeth removal 2002, laparoscopic cholecystectomy 2008, benign biopsy of right breast, bone marrow biopsy 2020, nephrostomy tube placement 2024
Patient Medication
�Medication �Instructions �Recorded �Confirmed �Last Taken �Type
cholecalciferol (vitamin D3) 10 400 units PO DAILY Supplement 02/07/08 07/29/24 06/02/09 History
mcg (400 unit) tablet (Vitamin D3)
Depo-Provera 104 mg INJ .Q3MTHS Hormonal Agent 0207/29/24 06/02/09 History
Tylenol 1,000 mg PO PRN PRN aches legs 07/02/09 07/29/24 07/02/09 History
carisoprodol 350 mg tablet (Soma) 350 mg PO QIDPRN PRN back pain 07/02/09 07/29/24 06/30/09 History
atorvastatin 10 mg tablet 10 mg PO DAILY High Cholesterol 09/03/20 07/29/24 Unknown History
carvedilol 25 mg tablet (Coreg) 50 mg PO BID Heart 09/03/20 07/29/24 Unknown History
Disease/Condition
duloxetine 60 mg capsule,delayed 90 mg PO DAILY Mental 09/03/20 07/29/24 Unknown History
release Health/Anxiety
fluticasone propionate 50 2 spray intranasal DAILY Allergies 09/03/20 07/29/24 Unknown History
mcg/actuation nasal
spray,suspension
ibuprofen 600 mg tablet 600 mg PO BID Pain 09/03/20 07/29/24 Unknown History
lorazepam 0.5 mg tablet 0.5 mg PO PRN PRN anxiety 09/03/20 07/29/24 Unknown History
metformin 500 mg tablet 500 mg PO BID Diabetes 09/03/20 07/29/24 Unknown History
calcium 500 mg tablet 500 mg PO DAILY Supplement 07/29/24 07/29/24 Unknown History
ferrous sulfate 27 mg iron tablet 27 mg PO .2 TIMES A WEEK Supplement 07/29/24 07/29/24 Unknown History
magnesium 200 mg tablet 200 mg PO DAILY Supplement 07/29/24 07/29/24 Unknown History
morphine 15 mg immediate release 15 mg PO Q4H PRN pain 07/29/24 07/29/24 Unknown History
tablet
pregabalin 200 mg capsule 200 mg PO TID Mental Health/Anxiety 07/29/24 07/29/24 Unknown History
sertraline 25 mg tablet (Zoloft) 25 mg PO HS Mental Health/Anxiety 07/29/24 07/29/24 Unknown History
zinc 10 mg tablet 10 mg PO DAILY Supplement 03/22/25 03/22/25 Unknown History
Active Medications
Generic Name Dose Route Start Last Admin
Trade Name Freq PRN Reason Stop Dose Admin
Acetaminophen 650 mg 07/29/24 23:40
Acetaminophen 325 Mg Tablet PO 08/26/24 23:39
Q4HPRN PRN
mild pain/GARCIA/temp> 100.4F
Atorvastatin Calcium 10 mg 07/30/24 08:00 07/31/24 08:08
Atorvastatin (Lipitor) 10 Mg Tablet PO 08/27/24 07:59 10 mg
DAILY SHAQ Administration
Calcium Carbonate 500 mg 07/30/24 08:00 07/31/24 08:09
Calcium Carbonate 500 Mg Tablet PO 08/27/24 07:59 500 mg
DAILY SHAQ Administration
Carvedilol 3.125 mg 07/31/24 20:00
Carvedilol 3.125 Mg Tablet PO 08/28/24 19:59
BID SHAQ
Ceftriaxone Sodium 1,000 mg 07/30/24 14:00 07/30/24 14:20
Ceftriaxone 1000 Mg / 10 Ml Vial IV 1,000 mg
Q24H SHAQ Administration
Cholecalciferol 10 mcg 07/30/24 08:00 07/31/24 08:09
Cholecalciferol (Vitamin D3) 10 Mcg Tablet (400 Units) PO 08/27/24 07:59 10 mcg
DAILY SHAQ Administration
Cyanocobalamin 1,000 mcg 07/31/24 09:00 07/31/24 09:09
Cyanocobalamin 1,000 Mcg Tablet PO 08/28/24 08:59 1,000 mcg
DAILY SHAQ Administration
Dextrose 12.5 grams 07/29/24 23:40
Dextrose 50% (0.5 Grams/Ml) 50 Ml Syringe IV 08/26/24 23:39
[id number] PRN
hypoglycemia
Protocol
Duloxetine HCl 90 mg 07/30/24 08:00 07/31/24 08:08
Duloxetine Delayed Release 30 Mg Capsule PO 08/27/24 07:59 90 mg
DAILY SHAQ Administration
Ferrous Sulfate 325 mg 08/02/24 08:00
Ferrous Sulfate 325 Mg Tablet PO 08/30/24 07:59
WeFr SHAQ
Glucagon 1 mg 07/29/24 23:40
Glucagon 1 Mg Vial IM 08/26/24 23:39
PRN PRN
hypoglycemia
Protocol
Insulin Aspart 0 units 07/30/24 07:30 07/31/24 07:32
Insulin Aspart Low Resistance 300 Units/3 Ml Pen.Injctr SC 08/27/24 07:29 Not Given
AC SHAQ
Protocol
Lorazepam 0.5 mg 07/29/24 23:40 07/30/24 21:30
Lorazepam 0.5 Mg Tablet PO 08/26/24 23:39 0.5 mg
PRN PRN Administration
anxiety
Magnesium Oxide 250 mg 07/30/24 08:00 07/31/24 08:08
Magnesium Oxide 500 Mg Tablet PO 08/27/24 07:59 250 mg
DAILY SHAQ Administration
Morphine Sulfate 15 mg 07/29/24 22:29 07/31/24 11:10
Morphine 15 Mg Immediate Release Tablet PO 08/12/24 22:28 15 mg
Q4H PRN Administration
pain
Ondansetron HCl 4 mg 07/29/24 23:40
Ondansetron 4 Mg/2 Ml Vial IV 08/26/24 23:39
Q6HPRN PRN
nausea and vomiting
Pantoprazole Sodium 40 mg 07/31/24 13:00
Pantoprazole Sodium 40 Mg/10 Ml Vial IV 08/28/24 12:59
BID SHAQ
Polyethylene Glycol 17 grams 07/31/24 09:00 07/31/24 09:12
Polyethylene Glycol Powder 17 Grams Packet PO 08/28/24 08:59 Not Given
DAILY SHAQ
Pregabalin 200 mg 07/30/24 08:00 07/31/24 08:08
Pregabalin 100 Mg Capsule PO 08/27/24 07:59 200 mg
TID SHAQ Administration
Senna/Docusate Sodium 1 tablet 07/31/24 20:00
Docusate W/Senna (Elisabeth-Colace) Tablet PO 08/28/24 19:59
BID SHAQ
Sertraline HCl 25 mg 07/30/24 22:00 07/30/24 21:30
Sertraline 25 Mg Tablet PO 08/27/24 21:59 25 mg
HS SHAQ Administration
Sodium Chloride 0 flush 07/29/24 23:00
Sodium Chloride 0.9% (Flush) Syringe IV 08/26/24 22:59
PER PROTOCOL SHAQ
Sodium Chloride 10 ml 07/31/24 13:00
Sodium Chloride 0.9% (Preservative Free) 10 Ml Vial IV 08/28/24 12:59
BID SHAQ
Sterile Water 10 ml 07/30/24 14:00 07/30/24 14:21
Sterile Water For Injection 10 Ml Vial IV 08/27/24 13:59 10 ml
Q24H SHAQ Administration
Review of Systems
-
History Source: Patient
Constitutional: Reports Fever, Weight Loss, Fatigue, Night Sweats and Weakness
EENT: Denies Sore Throat or Runny Nose
Respiratory: Denies Cough, Trouble Breathing or Wheezing
Cardiac: Denies Chest Pain, Diaphoresis or Syncope
GI: Denies Abdominal Pain, Nausea, Vomiting, Diarrhea, Constipated or Bloody Stools
Breast: Reports No Symptoms
: Reports Flank Pain; Denies Dysuria or Frequency
Musculoskeletal: Reports Other (low back pain)
Skin: Denies Itching or Rash
Neuro: Denies Dizzy or Headache
Endocrine: Reports No Symptoms
Hematologic/Lymphatic: Reports No Symptoms
Psych: Reports No Symptoms
Physical Exam
-
General: Well Developed, Well Nourished, No Apparent Distress and Obese; Negative Pain, Fever, Chills or Sweats
HEENT: Moist Mucous Membranes; Negative Jaundice
Cardiology: Normal Sinus Rhythm, S1 and S2; Negative Murmur
Pulmonary: Clear; Negative Wheezes, Rales or Rhonchi
GI: Soft and Normal Bowel Sounds
Genito-Urinary: Costovertebral Angle Tenderness (L sided CVA tenderness near nephrostomy site, no R sided CVA tenderness) and Nephrostomy Tubes (Tender to palpation around nephrostomy site, w/o erythema, fluctuance or drainage. )
Musculoskeletal: No Clubbing, No Cyanosis and No Edema
Skin: Warm, Dry and IV Access / Catheter Site
Hematologic / Lymphatic: No Petechiae
Psych: Calm and Intact Judgement/Insight
Labs
Lab Results
WBC 9.1 10^3/uL (4.8-10.8) 07/31/24 07:31
RBC 1.97 10^6/uL (4.20-5.40) L 07/31/24 07:31
Hgb 5.8 g/dL (12.0-16.0) L* 07/31/24 07:31
Hct 18.5 % (37.0-47.0) L* 07/31/24 07:31
MCV 93.9 fL (81.0-99.0) 07/31/24 07:31
MCH 29.4 pg (27.0-31.0) 07/31/24 07:31
MCHC 31.4 g/dL (33.0-37.0) L 07/31/24 07:31
RDW 16.3 % (11.5-14.5) H 07/31/24 07:31
Plt Count 202 10^3/uL (130-400) 07/31/24 07:31
MPV 11.0 fL (7.4-10.4) H 07/31/24 07:31
Abs Immat Gran (auto) 0.0 10^3/uL (0-0.05) 07/30/24 05:51
Absolute Neuts (auto) 5.0 10^3/uL (1.4-6.5) 07/30/24 05:51
Absolute Lymphs (auto) 3.4 10^3/uL (1.2-3.4) 07/30/24 05:51
Absolute Monos (auto) 0.7 10^3/uL (0.1-0.6) H 07/30/24 05:51
Absolute Eos (auto) 0.2 10^3/uL (0-0.7) 07/30/24 05:51
Absolute Basos (auto) 0.1 10^3/uL (0-0.2) 07/30/24 05:51
Immature Gran % 0.4 % (0-0.5) 07/30/24 05:51
Neutrophils % 53.2 % (42.2-75.2) 07/30/24 05:51
Lymphocytes % 36.4 % (20.5-51.1) 07/30/24 05:51
Monocytes % 7.0 % (1.7-9.3) 07/30/24 05:51
Eosinophils % 2.5 % (0-6) 07/30/24 05:51
Basophils % 0.5 % (0-2) 07/30/24 05:51
Creatinine 1.0 mg/dL (0.6-1.0) 07/31/24 07:31
Vital Signs
Vital Signs
Temp Pulse Resp BP Pulse Ox
98.4 F 89 18 94/60 96
07/31/24 12:37 07/31/24 12:37 07/31/24 12:37 07/31/24 12:37 07/31/24 07:00
[2024-07-31] MEDS: NOVOLOG FLEXPEN-LOW RESISTANCE 1 UNITS SC ×2 (12:50→17:11)
[2024-07-31] MEDS: NSS (PRESERVATIVE FREE) 10 ML IV ×2 (13:00→19:54)
[2024-07-31] MEDS: PROTONIX IV 40 MG IV ×2 (13:00→19:54)
[2024-07-31] MEDS: STERILE WATER FOR INJECTION 10 ML IV (13:01)
[2024-07-31] MEDS: ROCEPHIN 1000 MG IV (13:01)
--- NOTE | 2024-07-31 13:35 | PTCARENOTE ---
Pt c/o migraine headache. Do not carry her migraine med and no one able to bring in today. Requesting Fiorcet, but unable to give with questionable GI bleed. Offered an ice pack but pt declined at this time. Care ongoing.
[2024-07-31 13:45] LABS: LDH 143 U/L (120-246)
--- NOTE | 2024-07-31 15:52 | CON.GI ---
Addendum entered and electronically signed by Jeniffer Arthur MD 08/10/24 16:06:
Error- supposed to say as below for the note
The Resident's note was reviewed and I agree with the note.
Addendum entered and electronically signed by Jeniffer Arthur MD 07/31/24 17:48:
I saw and examined the patient.
The SUPERVISOR ROLLING ROOM or PA's note was reviewed and I agree with the note.
Comment: 44-year-old female with history of fibromyalgia, chronic anemia recurrent UTIs and left kidney abscess status post nephrostomy tube placement, at [place], diabetes, history of endometriosis, cholelithiasis status post cholecystectomy who
was admitted to [facility] early July now presenting to [facility] with chills and bodyaches.
She reports that hemoglobin at discharge at [place] early July was 9.4, on admission. She was noted to have hemoglobin of 6.5 and dropped to 5.8. She does take oral iron couple of times a week and has dark stool. Denies abdominal pain, some
nausea but no vomiting. No trouble swallowing. Baseline constipation take Senokot as needed. Some wipe type bleeding intermittently. Never had GI evaluation.
As per patient, she has history of menorrhagia and has had low hemoglobin since she was 15 but then was started on Depo injections and has not had much issues with anemia. Unclear what her baseline hemoglobin is prior to the UTIs and nephrostomy
tube placement. Hemoglobin in 2019 was 2 noted to be 10.3
She does take ibuprofen 600 mg twice a day for fibromyalgia symptoms.
No family history of colon cancer or colon polyps.
Heme positive stool on exam
-Anemia, normal iron indices on oral supplementation
Chronic ibuprofen use, heme positive stool with drop in hemoglobin.
Rule out ulcer disease
Continue Protonix IV twice daily
Monitor H&H and transfuse if needed.
Plan for EGD tomorrow.
Needs to avoid NSAIDs with history of anemia and heme positive stool.
Original Note:
Consultation
-
Date/Time Consultation Requested: 07/31/24
Date/Time Consultation Performed: 07/31/24
Requesting Provider:
Performing Provider: ,
Reason for Consultation: Heme-positive stool, anemia
Medical History
Chief Complaint / HPI
Chief Complaint: Chills
History of Present Illness:
This is a 44-year-old female patient with PMH of recent UTI with left kidney abscess s/p nephrostomy tube, chronic anemia, DM, chronic low back pain, endometriosis, asthma and migraines who presented to the ER with fever and chills. She was
recently admitted at [facility] in May and June for UTI/left kidney abscess for which she had a nephrostomy tube placed. During her most recent admission in [facility], she was found to have an hemoglobin of 6.8 and was given
a unit of blood. She was discharged with a hemoglobin of 9.4 from [place] but subsequently developed fever and chills and presented to [facility]. Denies any bleeding from nephrostomy tube.
She states that since the age of 15 she has had continuous heavy menstrual cycles due to her endometriosis but they have normalized due to her Depo injections. She does admit to having chronic lower back pain for which she takes morphine and
ibuprofen 600 Mg every day for many years.
Initially in ED, hemoglobin was 8.4 with no visible signs of bleeding and heme-negative stool. The next day Hb dropped to 6.5 (given 1 unit PRBC) followed by repeat hemoglobin dropping to 5.8 and she was ordered 2 units of PRBC. Today she was
found to have heme positive stool, denies abdominal pain/constipation/diarrhea/dysphagia. Her baseline bowel movements are soft and formed with mild constipation with mild straining for which she was prescribed Senokot for. She had recently
noticed bright red blood while wiping. She has never had colonoscopy/EGD for anemia evaluation.
Past Medical History
Past Medical History: Asthma, NIDDM and Other (Recent UTI with left kidney abscess s/p nephrostomy tube, chronic anemia, chronic low back pain, migraines, endometriosis)
Past Surgical History: Appendectomy, Cholecystectomy and Gynecological (Breast lump removal)
Social History
Tobacco: Non-Smoker
Alcohol: Occasional
Drug: None
Personal: Single
Family History
Family History: Reviewed & Not Pertinent
Allergies / Home Medications
Allergy/AdvReac Type Severity Reaction Status Date / Time
Sulfa (Sulfonamide Allergy HIVES, SOB Verified 07/29/24 16:48
Antibiotics)
bee stings Allergy severe Uncoded 07/29/24 16:48
swelling
�Medication �Instructions �Recorded
cholecalciferol (vitamin D3) 10 400 units PO DAILY Supplement 02/07/08
mcg (400 unit) tablet (Vitamin D3)
Depo-Provera 104 mg INJ .Q3MTHS Hormonal Agent 07/02/09
Tylenol 1,000 mg PO PRN PRN aches legs 07/02/09
carisoprodol 350 mg tablet (Soma) 350 mg PO QIDPRN PRN back pain 07/02/09
atorvastatin 10 mg tablet 10 mg PO DAILY High Cholesterol 09/03/20
carvedilol 25 mg tablet (Coreg) 50 mg PO BID Heart 09/03/20
Disease/Condition
duloxetine 60 mg capsule,delayed 90 mg PO DAILY Mental 09/03/20
release Health/Anxiety
fluticasone propionate 50 2 spray intranasal DAILY Allergies 09/03/20
mcg/actuation nasal
spray,suspension
ibuprofen 600 mg tablet 600 mg PO BID Pain 09/03/20
lorazepam 0.5 mg tablet 0.5 mg PO PRN PRN anxiety 09/03/20
metformin 500 mg tablet 500 mg PO BID Diabetes 09/03/20
calcium 500 mg tablet 500 mg PO DAILY Supplement 07/29/24
ferrous sulfate 27 mg iron tablet 27 mg PO .2 TIMES A WEEK Supplement 07/29/24
magnesium 200 mg tablet 200 mg PO DAILY Supplement 07/29/24
morphine 15 mg immediate release 15 mg PO Q4H PRN pain 07/29/24
tablet
pregabalin 200 mg capsule 200 mg PO TID Mental Health/Anxiety 07/29/24
sertraline 25 mg tablet (Zoloft) 25 mg PO HS Mental Health/Anxiety 07/29/24
zinc 10 mg tablet 10 mg PO DAILY Supplement 07/29/24
rimegepant 75 mg disintegrating 75 mg PO PRN PRN migraines 07/31/24
tablet (Nurtec ODT)
Review of Systems
-
All other systems: A 12 pt ROS was Negative except as stated above in HPI
Vital Signs
Temp Pulse Resp BP Pulse Ox
98.0 F 94 16 101/62 96
07/31/24 15:00 07/31/24 15:00 07/31/24 15:00 07/31/24 15:00 07/31/24 15:00
Physical Exam
Exam
General: No Apparent Distress
HEENT: Normocephalic
Respiratory: Clear
Cardiac: S1/S2 and Regular Rhythm
GI: Soft, Non Tender and Non Distended
Rectal: Brown and Hem Positive (Rectal exam done by attending physician)
Musculoskeletal: No Cyanosis and No Edema
Skin: Warm and Dry
Neuro: Awake, Alert and Oriented
Psych: Calm
Results
WBC 9.1 10^3/uL (4.8-10.8) 07/31/24 07:31
Hgb 5.8 g/dL (12.0-16.0) L* 07/31/24 07:31
Hct 18.5 % (37.0-47.0) L* 07/31/24 07:31
MCV 93.9 fL (81.0-99.0) 07/31/24 07:31
Plt Count 202 10^3/uL (130-400) 07/31/24 07:31
Absolute Neuts (auto) 5.0 10^3/uL (1.4-6.5) 07/30/24 05:51
Sodium 136 mmol/L (135-145) 07/31/24 07:31
Potassium 4.9 mmol/L (3.5-5.1) 07/31/24 07:31
Chloride 105 mmol/L (98-107) 07/31/24 07:31
Carbon Dioxide 24 mmol/L (22-30) 07/31/24 07:31
BUN 40 mg/dl (7-17) H 07/31/24 07:31
Creatinine 1.0 mg/dL (0.6-1.0) 07/31/24 07:31
Calcium 8.6 mg/dl (8.4-10.2) 07/31/24 07:31
Total Bilirubin 0.3 mg/dl (0.2-1.3) 07/30/24 05:51
AST 14 U/L (14-36) 07/30/24 05:51
ALT 13 U/L (0-35) 07/30/24 05:51
Alkaline Phosphatase 53 U/L (38-126) 07/30/24 05:51
Diagnostic Image Results:
CT abdomen 07/29/2024:
1. No pulmonary embolism or acute process in the chest.
2. Left percutaneous nephrostomy tube noted with the pigtail portion located peripherally within the lateral midpole cortex, with surrounding inflammatory change. Mild left pelvocaliectasis without nba hydronephrosis.
3. Mild to moderate diffuse colonic stool burden may reflect constipation.
CXR 07/29/2024:
IMPRESSION:
No acute cardiopulmonary process.
Prior GI Procedures: n/a
EGD: n/a
Colonoscopy: n/a
Assessment / Plan
-
Impression: This is a 44-year-old female patient with PMH of recent UTI with left kidney abscess s/p nephrostomy tube chronic lower back pain on long-term NSAID and chronic anemia who presented to the hospital with fever and chills. She was found
to have low hemoglobin of 8.4 on admission. Most recent bowel movement on 07/31/2024 was heme positive stool.
Assessment/plan:
#Heme positive stool with low hemoglobin likely 2/2 to ulcer due to chronic NSAID use
�Hb 8.4 on admission--> dropped to 6.8 on 07/30 given 1 unit prbc
-Hb today 5.8, to be transfused 2 units PRBC
-Rectal exam performed by attending physician, heme positive stool
-Continue IV PPI, Senokot/MiraLAX
�Heme positive stool likely due to ulcer due to long-term NSAID use
�EGD to be performed for further evaluation
-
-
Thank you for consultation and allowing me to participate in the patient's care. Please call the special weapons unit officer GI physician during the after hours with any questions or concerns.
[2024-07-31 15:59] LABS: Glucose - Point of Care 168 mg/dl (70-99)
--- NOTE | 2024-07-31 16:34 | CM ---
business management manager reviewed patient's chart and met with patient and ebv lives in a 2nd floor apartment, patient is independent with adl's and ambulation, no dme, patient drives, home when stable, no needs.
PCP: Dr Lowell Cooper
[facility].
[2024-07-31] MEDS: MORPHINE SULFATE 1 MG IV (16:46)
[2024-07-31 17:02] LABS: Hematocrit 20.6 % (37.0-47.0); Hemoglobin 6.7 g/dL (12.0-16.0)
[2024-07-31] MEDS: COREG 3.125 MG PO (19:54)
[2024-07-31] MEDS: ZOLOFT 25 MG PO (21:07)
[2024-07-31] MEDS: ATIVAN 0.5 MG PO (21:11)
[2024-07-31 23:16] LABS: Glucose - Point of Care 145 mg/dl (70-99)
[2024-07-31 23:18] LABS: Hematocrit 23.3 % (37.0-47.0); Hemoglobin 7.8 g/dL (12.0-16.0)
[2024-08-01] VITALS (9 sets, daily range): BP systolic 12–114; BP diastolic 53–72
[2024-08-01] MEDS: MORPHINE SULFATE 15 MG PO ×6 (00:15→22:25)
[2024-08-01] MEDS: TYLENOL 650 MG PO (02:10)
[2024-08-01 06:12] LABS: Glucose - Point of Care 145 mg/dl (70-99)
[2024-08-01] MEDS: ATIVAN 0.5 MG PO ×2 (06:17→22:26)
[2024-08-01 08:02] LABS: % Basophils 0.7 % (0-2); % Eosinophils 3.8 % (0-6); % Immature Granulocytes 0.7 % (0-0.5); % Lymphocytes 28.3 % (20.5-51.1); % Monocytes 8.5 % (1.7-9.3); Absolute Basophils 0.1 10^3/uL (0-0.2); Absolute Eosinophils 0.4 10^3/uL (0-0.7); Absolute Immature Granulocytes 0.1 10^3/uL (0-0.05); Absolute Lymphocytes 3.2 10^3/uL (1.2-3.4); Absolute Neutrophils 6.5 10^3/uL (1.4-6.5); Hematocrit 26.7 % (37.0-47.0); Hemoglobin 8.6 g/dL (12.0-16.0); Mean Corp Hgb Conc. 32.2 g/dL (33.0-37.0); Mean Corpuscular Hgb 29.3 pg (27.0-31.0); Mean Corpuscular Volume 90.8 fL (81.0-99.0); Mean Platelet Volume 11.4 fL (7.4-10.4); Nucleated Red Blood Cells % 0 %; Platelet Count 225 10^3/uL (130-400); Red Blood Cell Count 2.94 10^6/uL (4.20-5.40); Red Cell Dist. Width 16.9 % (11.5-14.5); White Blood Cell Count 11.3 10^3/uL (4.8-10.8)
[2024-08-01] MEDS: NSS (PRESERVATIVE FREE) 10 ML IV ×2 (08:09→20:13)
[2024-08-01] MEDS: MIRALAX PO (08:09)
[2024-08-01] MEDS: PROTONIX IV 40 MG IV ×2 (08:09→20:13)
--- NOTE | 2024-08-01 08:23 | W.PN.GI.CBS2 ---
Today's Communication / Plan
-
colonoscopy tomorrow
Assessment / Plan
-
Impression: This is a 44-year-old female patient with PMH of recent UTI with left kidney abscess s/p nephrostomy tube chronic lower back pain on long-term NSAID and chronic anemia who presented to the hospital with fever and chills. She was found
to have low hemoglobin of 8.4 on admission. Most recent bowel movement on 07/31/2024 was heme positive stool.
Assessment/plan:
#Heme positive stool with low hemoglobin likely 2/2 to ulcer due to chronic NSAID use
�Hb 8.6 today, s/p 3 units prbc during hospitalization
-Monitor H&H and transfuse if needed.
-Continue IV PPI, Senokot/MiraLAX
�Heme positive stool likely due to ulcer due to long-term NSAID use
�EGD today did not reveal ulcers
-Colonoscopy for tomorrow for further evaluation
Subjective
Subjective
Date of Service: August 01, 2024
Patient has had no vomiting or fever overnight. She does admit to some nausea.
Objective
Data Reviewed
Laboratory Data:
Laboratory Results
08/01/24 07:29
Laboratory Results
Total Bilirubin 0.3 mg/dl (0.2-1.3) 07/30/24 05:51
AST 14 U/L (14-36) 07/30/24 05:51
ALT 13 U/L (0-35) 07/30/24 05:51
Alkaline Phosphatase 53 U/L (38-126) 07/30/24 05:51
Vital Signs and I&O:
Vital Signs
Temp Pulse Resp BP Pulse Ox
98.0 F 90 18 114/68 98
08/01/24 07:00 08/01/24 07:00 08/01/24 07:00 08/01/24 07:00 08/01/24 07:00
I&O
07/31/24 08/01/24 08/02/24
06:59 06:59 06:59
Intake Total 1779
Balance 1779
Physical Exam
Physical Exam
HEENT: Anicteric
Cardiology: Normal Sinus Rhythm, S1 and S2
Pulmonary: Clear
GI: Soft and Non Distended
Extremities: No Edema
Neuro: Non Focal
[2024-08-01 08:33] LABS: ALT (SGPT) 11 U/L (0-35); AST (SGOT) 15 U/L (14-36); Albumin 3.7 g/dl (3.5-5.0); Alkaline Phosphatase 60 U/L (38-126); Blood Urea Nitrogen 38 mg/dl (7-17); Calcium 9.3 mg/dl (8.4-10.2); Carbon Dioxide 26 mmol/L (22-30); Chloride 105 mmol/L (98-107); Estimated Creatinine Clearance 95 ml/min; Glucose 136 mg/dl (70-99); Potassium 4.9 mmol/L (3.5-5.1); Sodium 142 mmol/L (135-145); Total Bilirubin 0.4 mg/dl (0.2-1.3); Total Protein 6.7 g/dl (6.3-8.2); eGFR > 60.00
--- NOTE | 2024-08-01 10:21 | PN.CDI ---
CDI
- -
CDI:
Physician Documentation Request
Admit Date: 07/29/24 22:40
Dear Doctor Charo,
Please review the following and provide your response in the progress notes.
Clinical Indicators:
- 07/31 PN 'History of left kidney abscess status post nephrostomy tube'
- 'CT abdomen pelvis shows left percutaneous nephrostomy tube with surrounding inflammatory change, mild left pelvocalicectasis'
- WBC 14.1 on admission
- IV abx Ceftriaxone, Cefepime given
Please clarify/update the status of the renal abscess
Renal abscess is resolved
Renal abscess is still being treated monitored
Renal abscess is ruled out
Other (please specify)
Use of terms such as suspected, likely, concern for, or probable (associated with a specific diagnosis that is being evaluated, monitored, or treated as if it exists) are acceptable and can be coded in the inpatient setting, when documented at the
time of discharge.
Thank you,
Marichuy Marin RN
CDI Specialist
Please use your independent medical judgment in providing your response.
--- NOTE | 2024-08-01 10:25 | PN.CDI ---
CDI
- -
CDI:
Physician Documentation Request
Admit Date: 07/29/24 22:40
Dear Doctor Charo,
Please review the following and provide your response in the progress notes.
Clinical Indicators:
- 07/29 H&P 'Chronic lower back pain...Continue morphine, duloxetine, pregabalin, Motrin'
- home med 'morphine 15 mg immediate release tablet 15 mg PO Q4H PRN pain'
- 15mg PO morphine sulphate given x 13
If possible, please provide further specificity as outlined below:
Opioid use with dependence
Opioid dependence
Other (please specify)
Use of terms such as suspected, likely, concern for, or probable (associated with a specific diagnosis that is being evaluated, monitored, or treated as if it exists) are acceptable and can be coded in the inpatient setting, when documented at the
time of discharge.
Thank you,
Marichuy Marin RN
CDI Specialist
Please use your independent medical judgment in providing your response.
--- NOTE | 2024-08-01 10:30 | PN.CDI ---
CDI
- -
CDI:
Physician Documentation Request
Admit Date: 07/29/24 22:40
Dear Doctor Charo,
Please review the following and provide your response in the progress notes.
Clinical Indicators:
- 07/31 PN 'Sweating/chills/leukocytosis unclear etiology could be residual left kidney abscess versus persistent UTI'
- 'History of left kidney abscess status post nephrostomy tube'
- 'CT abdomen pelvis shows left percutaneous nephrostomy tube with surrounding inflammatory change, mild left pelvocalicectasis'
- 07/31 Hematology 'Pt states she recently saw IR at [facility]. Imaging reportedly showed no residual abscess so drain was downsized and capped'
- WBC 14.1 on admission
- IV abx Ceftriaxone, Cefepime given
Please clarify/update the status of the renal abscess
Renal abscess is resolved
Renal abscess is still being treated monitored
Renal abscess is ruled out
Other (please specify)
Use of terms such as suspected, likely, concern for, or probable (associated with a specific diagnosis that is being evaluated, monitored, or treated as if it exists) are acceptable and can be coded in the inpatient setting, when documented at the
time of discharge.
Thank you,
Marichuy Marin RN
CDI Specialist
Please use your independent medical judgment in providing your response.
[2024-08-01] MEDS: MORPHINE SULFATE 1 MG IV (11:38)
[2024-08-01 11:55] LABS: Glucose - Point of Care 105 mg/dl (70-99)
--- NOTE | 2024-08-01 12:03 | W.PN.HOSP.TC ---
Today's Communication/Plan
-
EGD today
PPI bid
trend h/h
bowel regimen
IV abx per ID
await records
Assessment / Plan
Assessment / Plan
# Sweating/chills/leukocytosis unclear etiology could be versus persistent UTI
# History of left kidney abscess status post nephrostomy tube
-Leukocytosis
-Urinalysis shows 90-100 WBC, +3 leukocyte esterase
-culture remains negative so far.
-CT abdomen pelvis shows left percutaneous nephrostomy tube with surrounding inflammatory change, mild left pelvocalicectasis without nba hydronephrosis. No abscess was noted. Renal abscess seems to have resolved?
-Need to obtain records from [place] regarding prior CT scan for comparison-STILL AWAITING. Also requested records from PCP office.
-Empiric cefepime transitioned to [place]
-Given lack of drainage from nephrostomy tube, seems that it might be able to be removed if resolved after comparison with prior CAT scans-Await further ID input too.
-Patient also having. Interventional radiologist on 07/25 and had repeat outpatient appointment in 2 weeks. Patient completed antibiotics prior to arrival
-Awaiting records from [place]
-ID consulted
# Acute on chronic normocytic anemia unclear etiology
# Mild B12 deficiency
-Hemoglobin 8.4 on admission. s/p 4u of PRBC. Hgb of 8.6 am.
-Heme positive stools on 07/31.
-DC NSAIDs. PPI iv BID.
-Suspect anemia of chronic inflammation. R/O GIB
-Start B12 supplementation.
-Plan for EGD today.
-Appreciate GI and Heme input
# Mild BELEM
-Creatinine 1.2
- Improved to 0.9
- hold further IV fluids
# Subacute cough/dyspnea
- chest x-ray no acute cardiopulmonary process
-Negative flu and COVID
Type 2 diabetes
-Hold metformin
-ISS. A1Cat 6.
Chronic lower back pain
Opiate dependent on daily basis
-Continue morphine, duloxetine, pregabalin,
Constipation due to opiates use
-bowel regimen
History of migraines
Endometriosis history
History of cholelithiasis status post cholecystectomy
Mild asthma
History of sinus tachycardia
-Continue Coreg but will reduce dose to 3.125mg BID as with soft BP.
Anxiety/depression
-Continue sertraline, Ativan
Morbid obesity due to excess calories
Affects all aspects of medical care
Full code
DVT prophylaxis�heparin
Anticipated Discharge: > 48 hours
Subjective/Interval History
-
Date of Service: August 01, 2024
had bm yesterday
afebrile
Objective Data
-
Labs:
Laboratory Results
08/01/24
07:29
WBC 11.3 H
Hgb 8.6 L
Hct 26.7 L
Plt Count 225
Sodium 142
Potassium 4.9
Chloride 105
Carbon Dioxide 26
BUN 38 H
Creatinine 0.9
Glucose 136 H
Calcium 9.3
Total Bilirubin 0.4
AST 15
ALT 11
Alkaline Phosphatase 60
Vital Signs:
Vital Signs
Temp Pulse Resp BP Pulse Ox
98.0 F 90 18 114/68 98
08/01/24 07:00 08/01/24 07:00 08/01/24 07:00 08/01/24 07:00 08/01/24 08:45
I&O
07/31/24 08/01/24 08/02/24
06:59 06:59 06:59
Intake Total 1779 / 2629
Balance 1779 / 2629
Physical Exam
-
General: No Apparent Distress, Comfortable and Morbidly Obese
HEENT: Moist Mucous Membranes and Other (pale)
Respiratory: Clear to Auscultation
Cardiac: Regular Rhythm, S1/S2 and Tachycardic
GI: Soft, Nontender, Nondistended and Normal Bowel Sounds
Genito-urinary: Costovertebral Angle Tend (Left side. Has a nephrostomy tube without a drainage bag.)
Neuro: Awake and AO x 3
Psych: Calm
Data Reviewed
-
Total Time Spent with Patient (in minutes): 55
--- NOTE | 2024-08-01 13:10 | CM ---
Chart reviewed and plan is to home no needs when stable.
Plan; Home no needs when stable.
[2024-08-01 13:50] LABS: Glucose - Point of Care 104 mg/dl (70-99)
[2024-08-01] MEDS: COREG PO (14:19)
[2024-08-01] MEDS: CYMBALTA DELAYED RELEASE 90 MG PO (14:19)
[2024-08-01] MEDS: LIPITOR 10 MG PO (14:19)
[2024-08-01] MEDS: OSCAL CAL 500 500 MG PO (14:20)
[2024-08-01] MEDS: MAGNESIUM OXIDE 250 MG PO (14:20)
[2024-08-01] MEDS: SENOKOT-S 1 TABLET PO ×2 (14:21→20:13)
[2024-08-01] MEDS: VITAMIN D3 (cholecalciferol) 10 MCG PO (14:21)
[2024-08-01] MEDS: VITAMIN B-12 1000 MCG PO (14:21)
[2024-08-01] MEDS: ROCEPHIN 1000 MG IV (14:21)
[2024-08-01] MEDS: STERILE WATER FOR INJECTION 10 ML IV (14:21)
[2024-08-01] MEDS: LYRICA PO (14:22)
[2024-08-01] MEDS: LYRICA 200 MG PO ×2 (14:22→21:16)
[2024-08-01 16:05] LABS: Glucose - Point of Care 203 mg/dl (70-99)
[2024-08-01] MEDS: NOVOLOG FLEXPEN-LOW RESISTANCE 2 UNITS SC (18:05)
[2024-08-01] MEDS: GAVILAX 238 GM PO (18:06)
[2024-08-01] MEDS: COREG 3.125 MG PO (20:13)
[2024-08-01] MEDS: ZOLOFT 25 MG PO (21:16)
[2024-08-01 21:18] LABS: Glucose - Point of Care 150 mg/dl (70-99)
[2024-08-02] MEDS: MORPHINE SULFATE 15 MG PO ×5 (03:15→21:46)
[2024-08-02] MEDS: GAVILAX 125 GM PO (05:09)
[2024-08-02 05:59] LABS: Glucose - Point of Care 106 mg/dl (70-99)
[2024-08-02 07:30] VITALS: BP 103/64
--- NOTE | 2024-08-02 07:57 | W.PN.ONC2 ---
Today's Communication / Plan
-
GI workup underway. Await colonoscopy.
Hgb = 8.6 yesterday. Hgb pending from today
Impression
Impression
Hemoccult positive stool/GI bleed
Chronic low back pain on NSAIDs
Blood loss anemia/anemia of inflammation
Chronic UTI
Plan
Plan
#Symptomatic Anemia, likely of chronic disease vs. component of acute blood loss
- iron 90, saturation 38%, TIBC 233, Ferritin 46.3. LDH 143, reticulocyte count elevated 4.7%, haptoglobin pending. B12 <400, folate 6.1.
- S/p 4U pRBCs.
- Suspect ACD due to chronic UTI/Pyelonephritis/Abscess with compounding hemodilution, however repeat stool test was heme positive. Less likely hemolytic component given lab values and clinical presentation.
- GI workup for heme positive stool in the setting of acute on chronic anemia underway
Subjective/Objective
Chief Complaint
ACS Heme
Subjective
No complaints. Denies bleeding. Had EGD yesterday results reviewed. For colonoscopy today.
Vital Signs:
Vital Signs
Temp Pulse Resp BP Pulse Ox
97.6 F 90 18 99/72 95
08/01/24 23:00 08/01/24 23:00 08/01/24 23:00 08/01/24 23:00 08/01/24 23:00
Lab Results:
Laboratory Data
WBC 11.3 10^3/uL (4.8-10.8) H 08/01/24 07:29
Hgb 8.6 g/dL (12.0-16.0) L 08/01/24 07:29
Plt Count 225 10^3/uL (130-400) 08/01/24 07:29
eGFR > 60.00 08/01/24 07:29
Physical Exam
HEENT: No Jaundice
Cardiology: S1 and S2
Pulmonary: Clear
Neuro: Non Focal
[2024-08-02] MEDS: MIRALAX 17 GRAMS PO (08:23)
[2024-08-02] MEDS: LYRICA 200 MG PO ×3 (08:24→21:07)
[2024-08-02] MEDS: CYMBALTA DELAYED RELEASE 90 MG PO (08:24)
[2024-08-02] MEDS: LIPITOR 10 MG PO (08:25)
[2024-08-02] MEDS: SENOKOT-S 1 TABLET PO ×2 (08:25→19:29)
[2024-08-02] MEDS: COREG 3.125 MG PO ×2 (08:26→19:28)
[2024-08-02] MEDS: MAGNESIUM OXIDE 250 MG PO (08:26)
[2024-08-02] MEDS: OSCAL CAL 500 500 MG PO (08:27)
[2024-08-02] MEDS: VITAMIN D3 (cholecalciferol) 10 MCG PO (08:27)
[2024-08-02] MEDS: VITAMIN B-12 1000 MCG PO (08:27)
[2024-08-02] MEDS: FEOSOL 325 MG PO (08:28)
[2024-08-02 09:01] LABS: % Basophils 0.7 % (0-2); % Eosinophils 4.5 % (0-6); % Immature Granulocytes 0.6 % (0-0.5); % Lymphocytes 32.4 % (20.5-51.1); % Monocytes 8.8 % (1.7-9.3); Absolute Basophils 0.1 10^3/uL (0-0.2); Absolute Eosinophils 0.4 10^3/uL (0-0.7); Absolute Immature Granulocytes 0.1 10^3/uL (0-0.05); Absolute Lymphocytes 3.1 10^3/uL (1.2-3.4); Absolute Monocytes 0.9 10^3/uL (0.1-0.6); Absolute Neutrophils 5.1 10^3/uL (1.4-6.5); Hematocrit 22.7 % (37.0-47.0); Hemoglobin 7.4 g/dL (12.0-16.0); Mean Corp Hgb Conc. 32.6 g/dL (33.0-37.0); Mean Corpuscular Hgb 29.5 pg (27.0-31.0); Mean Corpuscular Volume 90.4 fL (81.0-99.0); Mean Platelet Volume 11.5 fL (7.4-10.4); Nucleated Red Blood Cells % 0 %; Platelet Count 199 10^3/uL (130-400); Red Blood Cell Count 2.51 10^6/uL (4.20-5.40); Red Cell Dist. Width 16.5 % (11.5-14.5); White Blood Cell Count 9.6 10^3/uL (4.8-10.8)
[2024-08-02 09:29] LABS: ALT (SGPT) 12 U/L (0-35); AST (SGOT) 17 U/L (14-36); Albumin 3.5 g/dl (3.5-5.0); Alkaline Phosphatase 63 U/L (38-126); Blood Urea Nitrogen 22 mg/dl (7-17); Calcium 9.3 mg/dl (8.4-10.2); Carbon Dioxide 29 mmol/L (22-30); Chloride 103 mmol/L (98-107); Estimated Creatinine Clearance 106 ml/min; Glucose 112 mg/dl (70-99); Potassium 4.4 mmol/L (3.5-5.1); Sodium 139 mmol/L (135-145); Total Bilirubin 0.4 mg/dl (0.2-1.3); Total Protein 6.4 g/dl (6.3-8.2); eGFR > 60.00
[2024-08-02] MEDS: PROTONIX IV 40 MG IV ×2 (09:46→19:29)
[2024-08-02] MEDS: NSS (PRESERVATIVE FREE) 10 ML IV ×2 (09:47→19:29)
[2024-08-02 11:36] LABS: Glucose - Point of Care 104 mg/dl (70-99)
--- NOTE | 2024-08-02 12:30 | W.PN.HOSP.TC ---
Today's Communication/Plan
-
2d colonoscopy prep
repeat h/h
trend cbc
IV abx per ID
await records
Assessment / Plan
Assessment / Plan
# Acute on chronic normocytic anemia unclear etiology
# Mild B12 deficiency
-Hemoglobin 8.4 on admission. s/p 4u of PRBC. Hgb of 7.4 am.
-Heme positive stools on 07/31.
-DC NSAIDs. PPI iv BID.
-Suspect anemia of chronic inflammation. R/O GIB
-Start B12 supplementation.
-s/p EGD with normal esophagus, erythematous mucosa. normal duodenum s/p biopsy.
-Colonoscopy tomm. Will require 2d prep
-Appreciate GI and Heme input
# Sweating/chills/leukocytosis unclear etiology could be versus persistent UTI
# History of left kidney abscess status post nephrostomy tube
-Leukocytosis
-Urinalysis shows 90-100 WBC, +3 leukocyte esterase
-culture remains negative so far.
-CT abdomen pelvis shows left percutaneous nephrostomy tube with surrounding inflammatory change, mild left pelvocalicectasis without nba hydronephrosis. No abscess was noted. Renal abscess seems to have resolved?
-Need to obtain records from [place] regarding prior CT scan for comparison-STILL AWAITING. Also requested records from PCP office.
-Empiric cefepime transitioned to [place]
-Given lack of drainage from nephrostomy tube, seems that it might be able to be removed if resolved after comparison with prior CAT scans-Await further ID input too.
-Patient also having. Interventional radiologist on 07/25 and had repeat outpatient appointment in 2 weeks. Patient completed antibiotics prior to arrival
-Awaiting records from [place]
-ID consulted
# Mild BELEM
-Creatinine 1.2
- Improved to 0.9
- hold further IV fluids
# Subacute cough/dyspnea
- chest x-ray no acute cardiopulmonary process
-Negative flu and COVID
Type 2 diabetes
-Hold metformin
-ISS. A1Cat 6.
Chronic lower back pain
Opiate dependent on daily basis
-Continue morphine, duloxetine, pregabalin,
Constipation due to opiates use
-bowel regimen
History of migraines
Endometriosis history
History of cholelithiasis status post cholecystectomy
Mild asthma
History of sinus tachycardia
-Continue Coreg but will reduce dose to 3.125mg BID as with soft BP.
Anxiety/depression
-Continue sertraline, Ativan
Morbid obesity due to excess calories
Affects all aspects of medical care
Full code
DVT prophylaxis�scds
Anticipated Discharge: > 48 hours
Subjective/Interval History
-
Date of Service: August 02, 2024
completed prep however, stools not clear yet
colonoscopy delayed
pt denies seeing blood in stool
Objective Data
-
Labs:
Laboratory Results
08/02/24 08/02/24
08:09 15:00
WBC 9.6
Hgb 7.4 L Pending
Hct 22.7 L Pending
Plt Count 199
Sodium 139
Potassium 4.4
Chloride 103
Carbon Dioxide 29
BUN 22 H
Creatinine 0.8
Glucose 112 H
Calcium 9.3
Total Bilirubin 0.4
AST 17
ALT 12
Alkaline Phosphatase 63
Vital Signs:
Vital Signs
Temp Pulse Resp BP Pulse Ox
98.0 F 66 24 123/63 94
08/02/24 07:30 08/02/24 08:26 08/02/24 07:30 08/02/24 08:26 08/02/24 07:30
I&O
08/01/24 08/02/24 08/03/24
06:59 06:59 06:59
Intake Total 2630 / 2630 3360 / 3360
Balance 2630 / 2630 3360 / 3360
Data Reviewed
-
Total Time Spent with Patient (in minutes): 55
[2024-08-02] MEDS: ATIVAN 0.5 MG PO ×2 (12:35→22:39)
--- NOTE | 2024-08-02 12:36 | W.PN.GI.CBS2 ---
Today's Communication / Plan
-
cscope tomorrow
Assessment / Plan
-
Impression: This is a 44-year-old female patient with PMH of recent UTI with left kidney abscess s/p nephrostomy tube chronic lower back pain on long-term NSAID and chronic anemia who presented to the hospital with fever and chills thought 2/2 UTI.
Hb went down to 5.8. Brown hem + stool. EGD negative 08/01.
Recommendations:
#Heme positive stool with low hemoglobin - EGD negative plan cscope tomorrow pending bowel prep
- Will do colyte since did not clear with miralax
- Trend Hb
- If cscope neg plan for VCE outpatient
- Can stop PPI
Subjective
Subjective
Date of Service: August 02, 2024
solid BM still after prep
Objective
Data Reviewed
Laboratory Data:
Laboratory Results
08/02/24 08:09
Laboratory Results
Total Bilirubin 0.4 mg/dl (0.2-1.3) 08/02/24 08:09
AST 17 U/L (14-36) 08/02/24 08:09
ALT 12 U/L (0-35) 08/02/24 08:09
Alkaline Phosphatase 63 U/L (38-126) 08/02/24 08:09
Vital Signs and I&O:
Vital Signs
Temp Pulse Resp BP Pulse Ox
98.0 F 66 24 123/63 94
08/02/24 07:30 08/02/24 08:26 08/02/24 07:30 08/02/24 08:26 08/02/24 07:30
I&O
08/01/24 08/02/24 08/03/24
06:59 06:59 06:59
Intake Total 2630 / 2630 3360 / 3360
Balance 2630 / 2630 3360 / 3360
Physical Exam
Physical Exam
GI: Non Distended and Non Tender
[2024-08-02] MEDS: STERILE WATER FOR INJECTION 10 ML IV (14:51)
[2024-08-02] MEDS: ROCEPHIN 1000 MG IV (14:51)
--- NOTE | 2024-08-02 14:54 | CM ---
Home no needs.
Plan; Home no needs.
[2024-08-02 15:44] VITALS: BP 100/66
[2024-08-02 15:49] LABS: Hematocrit 22.3 % (37.0-47.0); Hemoglobin 7.3 g/dL (12.0-16.0)
[2024-08-02 16:05] LABS: Haptoglobin 145 mg/dL (30-200)
[2024-08-02 17:02] LABS: Glucose - Point of Care 142 mg/dl (70-99)
[2024-08-02] MEDS: NULYTELY SOLUTION 2 LITERS PO (17:07)
[2024-08-02] MEDS: ZOLOFT 25 MG PO (21:07)
[2024-08-02 22:41] LABS: Hematocrit 25.7 % (37.0-47.0); Hemoglobin 8.2 g/dL (12.0-16.0)
[2024-08-02 23:00] VITALS: BP 96/57
[2024-08-03] VITALS (8 sets, daily range): BP systolic 18–122; BP diastolic 56–74
[2024-08-03 00:08] LABS: Glucose - Point of Care 97 mg/dl (70-99)
[2024-08-03] MEDS: MORPHINE SULFATE 15 MG PO ×5 (03:21→20:37)
[2024-08-03] MEDS: NULYTELY SOLUTION 2 LITERS PO (05:02)
[2024-08-03 05:46] LABS: Glucose - Point of Care 92 mg/dl (70-99)
[2024-08-03 07:34] LABS: Glucose - Point of Care 95 mg/dl (70-99)
[2024-08-03 07:56] LABS: % Basophils 0.5 % (0-2); % Eosinophils 4.7 % (0-6); % Immature Granulocytes 0.4 % (0-0.5); % Lymphocytes 34.1 % (20.5-51.1); % Monocytes 8.5 % (1.7-9.3); % Neutrophils 51.8 % (42.2-75.2); Absolute Basophils 0.1 10^3/uL (0-0.2); Absolute Eosinophils 0.5 10^3/uL (0-0.7); Absolute Lymphocytes 3.3 10^3/uL (1.2-3.4); Absolute Monocytes 0.8 10^3/uL (0.1-0.6); Hematocrit 24.5 % (37.0-47.0); Hemoglobin 7.8 g/dL (12.0-16.0); Mean Corp Hgb Conc. 31.8 g/dL (33.0-37.0); Mean Corpuscular Hgb 29.2 pg (27.0-31.0); Mean Corpuscular Volume 91.8 fL (81.0-99.0); Mean Platelet Volume 11.7 fL (7.4-10.4); Nucleated Red Blood Cells % 0 %; Platelet Count 209 10^3/uL (130-400); Red Blood Cell Count 2.67 10^6/uL (4.20-5.40); Red Cell Dist. Width 16.5 % (11.5-14.5); White Blood Cell Count 9.7 10^3/uL (4.8-10.8)
[2024-08-03] MEDS: CYMBALTA DELAYED RELEASE 90 MG PO (08:15)
[2024-08-03] MEDS: LYRICA 200 MG PO ×3 (08:15→21:41)
[2024-08-03] MEDS: VITAMIN D3 (cholecalciferol) 10 MCG PO (08:15)
[2024-08-03] MEDS: VITAMIN B-12 1000 MCG PO (08:16)
[2024-08-03] MEDS: MAGNESIUM OXIDE 250 MG PO (08:16)
[2024-08-03] MEDS: MIRALAX PO (08:18)
[2024-08-03] MEDS: OSCAL CAL 500 500 MG PO (08:18)
[2024-08-03] MEDS: LIPITOR 10 MG PO (08:19)
[2024-08-03] MEDS: PROTONIX IV 40 MG IV ×2 (08:19→20:31)
[2024-08-03] MEDS: NSS (PRESERVATIVE FREE) 10 ML IV ×2 (08:19→20:31)
[2024-08-03] MEDS: COREG 3.125 MG PO ×2 (08:19→20:32)
[2024-08-03] MEDS: SENOKOT-S PO (08:21)
[2024-08-03 08:46] LABS: ALT (SGPT) 14 U/L (0-35); AST (SGOT) 22 U/L (14-36); Albumin 3.3 g/dl (3.5-5.0); Alkaline Phosphatase 58 U/L (38-126); Blood Urea Nitrogen 14 mg/dl (7-17); Carbon Dioxide 30 mmol/L (22-30); Chloride 101 mmol/L (98-107); Estimated Creatinine Clearance 106 ml/min; Glucose 102 mg/dl (70-99); Potassium 4.6 mmol/L (3.5-5.1); Sodium 137 mmol/L (135-145); Total Bilirubin 0.3 mg/dl (0.2-1.3); Total Protein 6.3 g/dl (6.3-8.2); eGFR > 60.00
--- NOTE | 2024-08-03 09:28 | W.PN.ONC2 ---
Today's Communication / Plan
-
.
Impression
Impression
a/w Symptomatic Anemia, likely of chronic disease vs. component of acute blood loss
Hemoccult positive stool/GI bleed. EGD negative
Chronic low back pain on NSAIDs and narcotics
Blood loss anemia s/p 4 U PRBC
anemia of inflammation 2/2 chronic UTI/Pyelonephritis
Plan
Plan
colonoscopy
on PPI
on PO B12 and ferrous sulfate
transfuse prn
Subjective/Objective
Subjective
left lower back pain
denies dysuria
denies overt bleeding
Vital Signs:
Vital Signs
Temp Pulse Resp BP Pulse Ox
97.4 F 78 16 103/67 100
08/03/24 07:55 08/03/24 07:55 08/03/24 07:55 08/03/24 07:55 08/03/24 07:55
Lab Results:
Laboratory Data
WBC 9.7 10^3/uL (4.8-10.8) 08/03/24 07:14
Hgb 7.8 g/dL (12.0-16.0) L 08/03/24 07:14
Plt Count 209 10^3/uL (130-400) 08/03/24 07:14
eGFR > 60.00 08/03/24 07:14
Physical Exam
General: Well Developed, Well Nourished, No Apparent Distress and Obese; Negative Pain, Fever, Chills or Sweats
HEENT: Moist Mucous Membranes; Negative Jaundice
Cardiology: Normal Sinus Rhythm, S1 and S2; Negative Murmur
Pulmonary: Clear
GI: Soft
Genito-Urinary: nephrostomy
[2024-08-03 10:23] LABS: Glucose - Point of Care 90 mg/dl (70-99)
--- NOTE | 2024-08-03 10:29 | W.PN.HOSP.TC ---
Today's Communication/Plan
-
Await colonoscopy results
Can probably stop antibiotic later today
Monitor blood pressure
Assessment / Plan
Assessment / Plan
# Acute on chronic normocytic anemia unclear etiology
# Mild B12 deficiency
-Hemoglobin 8.4 on admission. s/p 4u of PRBC. Hgb of 7.8 am.
-Heme positive stools on 07/31.
-DC NSAIDs. PPI iv BID.
-Suspect anemia of chronic inflammation. R/O GIB
-Start B12 supplementation. Iron stores appropriate.
-s/p EGD with normal esophagus, erythematous mucosa. normal duodenum s/p biopsy.
-Colonoscopy today
-Appreciate GI and Heme input
# Sweating/chills/leukocytosis unclear etiology ?viral URI as had cough/dyspnea
# History of left kidney abscess status post nephrostomy tube
-Leukocytosis
-Urinalysis shows 90-100 WBC, +3 leukocyte esterase
-culture remains negative so far.
-CT abdomen pelvis shows left percutaneous nephrostomy tube with surrounding inflammatory change, mild left pelvocalicectasis without nba hydronephrosis. No abscess was noted. Renal abscess seems to have resolved?
-Patient had CT abdomen pelvis done via interventional radiologist at [place] which noted persistent communication with adjacent left renal collecting system. Successful exchange of drain within left renal collection. The catheter was downsized
to 8.5 Lao from 12 lao. Further recommendation from interventional radiology recommended tube maintenance in 2-week. No imaging. Patient should return for repeat imaging in 2 weeks. After fistula has close tube can likely be removed.
Notes were from 07/25/2024.
-Empiric cefepime transitioned to [place] can probably stop after dose later today. Ucx no growth. Blood culture no growth.
-Patient also having. Interventional radiologist on 07/25 and had repeat outpatient appointment in 2 weeks. Patient completed antibiotics prior to arrival
-ID consulted
# Mild BELEM
-Creatinine 1.2
- Improved to 0.8
- hold further IV fluids
# Subacute cough/dyspnea
- chest x-ray no acute cardiopulmonary process
-Negative flu and COVID
Type 2 diabetes
-Hold metformin
-ISS. A1Cat 6.
Chronic lower back pain
Opiate dependent on daily basis
-Continue morphine, duloxetine, pregabalin,
Constipation due to opiates use
-bowel regimen
History of migraines
Endometriosis history
History of cholelithiasis status post cholecystectomy
Mild asthma
History of sinus tachycardia
-Continue Coreg but will reduce dose to 3.125mg BID as with soft BP.
Mild hypotension
-Patient blood pressure 87/59.? Exacerbated due to multiple opioids
-Start IV fluids if needed.
Anxiety/depression
-Continue sertraline, Ativan
Morbid obesity due to excess calories
Affects all aspects of medical care
Full code
DVT prophylaxis�scds in setting of suspected GI bleed
Anticipated Discharge: Within 24 hours
Subjective/Interval History
-
Date of Service: August 03, 2024
completed prep overnight and this morning
Hgb at 7.8
remains afebrile
Objective Data
-
Labs:
Laboratory Results
08/02/24 08/03/24
22:36 07:14
WBC 9.7
Hgb 8.2 L 7.8 L
Hct 25.7 L 24.5 L
Plt Count 209
Sodium 137
Potassium 4.6
Chloride 101
Carbon Dioxide 30
BUN 14
Creatinine 0.8
Glucose 102 H
Calcium 9.0
Total Bilirubin 0.3
AST 22
ALT 14
Alkaline Phosphatase 58
Vital Signs:
Vital Signs
Temp Pulse Resp BP Pulse Ox
97.4 F 80 14 108/73 100
08/03/24 07:55 08/03/24 10:17 08/03/24 10:17 08/03/24 10:17 08/03/24 09:50
I&O
08/02/24 08/03/24 08/04/24
06:59 06:59 06:59
Intake Total 3360 / 3360 5200 / 5200
Balance 3360 / 3360 5200 / 5200
Physical Exam
-
General: No Apparent Distress, Comfortable and Morbidly Obese
HEENT: Moist Mucous Membranes
GI: Nontender and Nondistended
Genito-urinary: Costovertebral Angle Tend (Left side. Has a nephrostomy tube without a drainage bag.)
Neuro: Awake, Alert, Oriented, AO x 3 and No Motor Deficits; Negative Slurred Speech or Facial Droop
Psych: Calm
[2024-08-03] MEDS: ROCEPHIN 1000 MG IV (14:00)
[2024-08-03] MEDS: STERILE WATER FOR INJECTION 10 ML IV (14:01)
--- NOTE | 2024-08-03 14:38 | CM ---
Chart reviewed home when stable.
Plan; Home when stable.
--- NOTE | 2024-08-03 15:15 | W.PN.ID1 ---
Date of Service
Date of Service: August 03, 2024
Today's Communication
Discontinue further antibiotics.
Assessment / Plan
Leukocytosis
Subjective fevers (afebrile since admission)
Anemia
-ongoing blood transfusion(HB 5.8)
Pyuria without dysuria
Chronic back pain
Obesity (BMI = 36)
Migraines
Endometriosis
Asthma
Left renal abscess secondary to E. coli
Recommendations:
Chart reviewed from [facility]. Patient has completed her prolonged course of antibiotics.
Discontinue further ceftriaxone.
May consider PCN removal.
Little more to offer from a Infectious Disease standpoint.
Will see again at your request.
����������������������������������������������������������
Chief Complaint
-: Fever
Subjective / Review of Systems
Review of Systems: No Fever and No Chills
Vital Signs / Physical Exam
Vital Signs
Vital Signs
Temp Pulse Resp BP Pulse Ox
97.1 F 96 18 92/68 98
08/03/24 10:17 08/03/24 10:37 08/03/24 10:37 08/03/24 10:37 08/03/24 10:37
Physical Exam
Constitutional: No Acute Distress, Comfortable and Non-toxic
Eyes: Sclera Anicteric
Cardiovascular: S1/S2; Negative S3/S4
Pulmonary: Non Labored
Gastrointestinal: Soft, Non Tender and Non Distended
Genito-Urinary: Other (Left PCN in place; currently capped)
Extremities: Edema; Negative Cyanosis or Erythema
Neurological: Awake and Alert
Psychological: Calm
Objective Data
Lab Data
Lab Results
08/03/24 07:14
Estimated Creat Clear 106 ml/min 08/03/24 07:14
Total Bilirubin 0.3 mg/dl (0.2-1.3) 08/03/24 07:14
AST 22 U/L (14-36) 08/03/24 07:14
ALT 14 U/L (0-35) 08/03/24 07:14
Alkaline Phosphatase 58 U/L (38-126) 08/03/24 07:14
Most recent labs reviewed.
Micro Results:
07/29/24 22:50 Blood Culture - Preliminary
Blood/Venous No Growth in 4 days- Final report to follow
07/29/24 22:50 Blood Culture - Preliminary
Blood/Venous No Growth in 4 days- Final report to follow
07/29/24 17:45 Urine Culture - Final
Urine
07/29/24 20:58 Urine Culture - Final
Urine
07/29/24 22:50 Influenza Types A & B (RUBI) - Final
Nasal Swab Negative for Influenza A & B, NAAT
Negative results must be combined with clinical observations
and patient history.
Nucleic Acid Amplification test (NAAT)performed on the
[employer] platform.
Imaging:
07/29/2024 CT abdomen/pelvis: A left percutaneous nephrostomy tube is noted, with the pigtail portion located somewhat peripherally within the lateral midpole cortex anteriorly, with surrounding inflammatory changes. Mild left pelvocaliectasis
without nba hydronephrosis.
Care Review
Plan reviewed with: Physician (Hospitalist)
[2024-08-03] MEDS: ATIVAN 0.5 MG PO (15:47)
[2024-08-03 15:58] LABS: Glucose - Point of Care 197 mg/dl (70-99)
[2024-08-03] MEDS: NOVOLOG FLEXPEN-LOW RESISTANCE 1 UNITS SC (16:02)
[2024-08-03] MEDS: SENOKOT-S 1 TABLET PO (20:31)
[2024-08-03 21:07] LABS: Hematocrit 24.1 % (37.0-47.0); Hemoglobin 7.9 g/dL (12.0-16.0)
[2024-08-03] MEDS: ZOLOFT 25 MG PO (21:41)
[2024-08-03 21:43] LABS: Glucose - Point of Care 132 mg/dl (70-99)
[2024-08-04] MEDS: ATIVAN 0.5 MG PO ×2 (02:04→13:03)
[2024-08-04] MEDS: MORPHINE SULFATE 15 MG PO ×3 (02:04→10:38)
[2024-08-04 07:30] VITALS: BP 112/69
[2024-08-04 07:38] LABS: Glucose - Point of Care 122 mg/dl (70-99)
[2024-08-04 08:31] LABS: % Basophils 0.5 % (0-2); % Eosinophils 3.1 % (0-6); % Immature Granulocytes 0.4 % (0-0.5); % Lymphocytes 34.1 % (20.5-51.1); % Neutrophils 52.9 % (42.2-75.2); Absolute Eosinophils 0.3 10^3/uL (0-0.7); Absolute Lymphocytes 2.9 10^3/uL (1.2-3.4); Absolute Monocytes 0.8 10^3/uL (0.1-0.6); Absolute Neutrophils 4.5 10^3/uL (1.4-6.5); Hemoglobin 7.7 g/dL (12.0-16.0); Mean Corp Hgb Conc. 32.1 g/dL (33.0-37.0); Mean Corpuscular Hgb 29.7 pg (27.0-31.0); Mean Corpuscular Volume 92.7 fL (81.0-99.0); Mean Platelet Volume 11.5 fL (7.4-10.4); Nucleated Red Blood Cells % 0 %; Platelet Count 201 10^3/uL (130-400); Red Blood Cell Count 2.59 10^6/uL (4.20-5.40); Red Cell Dist. Width 16.3 % (11.5-14.5); White Blood Cell Count 8.5 10^3/uL (4.8-10.8)
[2024-08-04] MEDS: VITAMIN D3 (cholecalciferol) 10 MCG PO (09:00)
[2024-08-04] MEDS: LYRICA 200 MG PO (09:00)
[2024-08-04] MEDS: NOVOLOG FLEXPEN-LOW RESISTANCE SC (09:00)
[2024-08-04 09:01] LABS: ALT (SGPT) 13 U/L (0-35); AST (SGOT) 19 U/L (14-36); Albumin 3.2 g/dl (3.5-5.0); Alkaline Phosphatase 59 U/L (38-126); Blood Urea Nitrogen 13 mg/dl (7-17); Calcium 9.3 mg/dl (8.4-10.2); Carbon Dioxide 32 mmol/L (22-30); Chloride 101 mmol/L (98-107); Estimated Creatinine Clearance 106 ml/min; Glucose 120 mg/dl (70-99); Potassium 4.7 mmol/L (3.5-5.1); Sodium 140 mmol/L (135-145); Total Bilirubin 0.3 mg/dl (0.2-1.3); eGFR > 60.00
[2024-08-04] MEDS: CYMBALTA DELAYED RELEASE 90 MG PO (09:01)
[2024-08-04] MEDS: SENOKOT-S 1 TABLET PO (09:02)
[2024-08-04] MEDS: LIPITOR 10 MG PO (09:04)
[2024-08-04] MEDS: MAGNESIUM OXIDE 250 MG PO (09:04)
[2024-08-04] MEDS: COREG 3.125 MG PO (09:05)
[2024-08-04] MEDS: OSCAL CAL 500 500 MG PO (09:06)
[2024-08-04] MEDS: VITAMIN B-12 1000 MCG PO (09:07)
[2024-08-04] MEDS: PROTONIX IV 40 MG IV (09:07)
[2024-08-04] MEDS: MIRALAX PO (09:08)
[2024-08-04] MEDS: NSS (PRESERVATIVE FREE) 10 ML IV (09:08)
[2024-08-04] MEDS: FEOSOL 325 MG PO (09:10)
[2024-08-04 11:59] LABS: Glucose - Point of Care 184 mg/dl (70-99)
--- NOTE | 2024-08-04 12:49 | W.PN.HOSP.TC ---
Addendum entered and electronically signed by Gerber Mancilla MD 08/14/24 14:10:
UTI ruled out
Original Note:
Today's Communication/Plan
-
Home pending [facility] input/PCN removal if possible
Assessment / Plan
Assessment / Plan
# Acute on chronic normocytic anemia unclear etiology
# Mild B12 deficiency
-Hemoglobin 8.4 on admission. s/p 4u of PRBC. Hgb of 7.7 am.
-Heme positive stools on 07/31.
-DC NSAIDs. PPI iv BID.
-Suspect anemia of chronic inflammation. R/O GIB
-Start B12 supplementation. Iron stores appropriate.
-s/p EGD with normal esophagus, erythematous mucosa. normal duodenum s/p biopsy.
-s/p colonoscopy-examined portion of ileum and entire colon was normal. Status post for polyp removal. Outpatient video capsule study.
-Appreciate GI and Heme input
# Sweating/chills/leukocytosis unclear etiology ?viral URI as had cough/dyspnea
# History of left kidney abscess status post nephrostomy tube
-Leukocytosis
-Urinalysis shows 90-100 WBC, +3 leukocyte esterase
-culture remains negative so far.
-CT abdomen pelvis shows left percutaneous nephrostomy tube with surrounding inflammatory change, mild left pelvocalicectasis without nba hydronephrosis. No abscess was noted. Renal abscess seems to have resolved?
-Patient had CT abdomen pelvis done via interventional radiologist at [place] which noted persistent communication with adjacent left renal collecting system. Successful exchange of drain within left renal collection. The catheter was downsized
to 8.5 Icelandic from 12 [place] and nephrostomy bag was removed. Further recommendation from interventional radiology recommended tube maintenance in 2-week. No imaging. Patient should return for repeat imaging in 2 weeks. After fistula has close
tube can likely be removed. Notes were from 07/25/2024.
-Empiric cefepime transitioned to [place] can probably stop after dose later today. Ucx no growth. Blood culture no growth.
-CT abdomen pelvis done here Left percutaneous nephrostomy tube noted with the pigtail portion located peripherally within the lateral midpole cortex, with surrounding inflammatory change. Mild left pelvocaliectasis without nba hydronephrosis.
-Discussed with infectious disease recommended to discontinue further antibiotics. Also recommended to remove PCN tube as high risk of infection. Will consult [facility] for further input for removal.
-ID consulted
# Mild BELEM
-Creatinine 1.2
- Improved to 0.8
- hold further IV fluids
# Subacute cough/dyspnea
- chest x-ray no acute cardiopulmonary process
-Negative flu and COVID
Type 2 diabetes
-Hold metformin
-ISS. A1Cat 6.
Chronic lower back pain
Opiate dependent on daily basis
-Continue morphine, duloxetine, pregabalin,
Constipation due to opiates use
-bowel regimen
History of migraines
Endometriosis history
History of cholelithiasis status post cholecystectomy
Mild asthma
History of sinus tachycardia
-Continue Coreg but will reduce dose to 3.125mg BID as with soft BP.
Mild hypotension
-Patient blood pressure 87/59.? Exacerbated due to multiple opioids
-Start IV fluids if needed.
Anxiety/depression
-Continue sertraline, Ativan
Morbid obesity due to excess calories
Affects all aspects of medical care
Full code
DVT prophylaxis�scds in setting of suspected GI bleed
Home pending [facility] input/PCN removal if possible
Anticipated Discharge: Within 24 hours
Subjective/Interval History
-
Date of Service: August 04, 2024
states of upper back pain
comfortable in bed
no overnight events
Objective Data
-
Labs:
Laboratory Results
08/04/24
07:46
WBC 8.5
Hgb 7.7 L
Hct 24.0 L
Plt Count 201
Sodium 140
Potassium 4.7
Chloride 101
Carbon Dioxide 32 H
BUN 13
Creatinine 0.8
Glucose 120 H
Calcium 9.3
Total Bilirubin 0.3
AST 19
ALT 13
Alkaline Phosphatase 59
Vital Signs:
Vital Signs
Temp Pulse Resp BP Pulse Ox
98.4 F 88 22 112/69 99
08/04/24 07:30 08/04/24 07:30 08/04/24 07:30 08/04/24 07:30 08/04/24 07:30
I&O
08/03/24 08/04/24 08/05/24
06:59 06:59 06:59
Intake Total 5200 / 5200 1560 / 1560
Balance 5200 / 5200 1560 / 1560
Physical Exam
-
General: No Apparent Distress, Comfortable and Morbidly Obese
HEENT: Moist Mucous Membranes
GI: Nondistended
Genito-urinary: Costovertebral Angle Tend (Left side. Has a nephrostomy tube without a drainage bag.)
Neuro: Awake, Alert, Oriented, AO x 3 and No Motor Deficits; Negative Slurred Speech or Facial Droop
Psych: Calm
[2024-08-04] MEDS: MORPHINE SULFATE 2 MG IV (12:53)
[2024-08-04] MEDS: NOVOLOG FLEXPEN-LOW RESISTANCE 1 UNITS SC (12:54)
--- NOTE | 2024-08-04 13:33 | PTCARENOTE ---
1315 Arrives in [facility]. Patient identified. Capped drain present left flank. Transferred to imaging table. Tube removed by IRAD NELSON Flores. Site dressed. Report called to floor. Dressing dry and intact at 1331
--- NOTE | 2024-08-04 14:14 | W.DCSUMMARY ---
Discharge Summary
Discharge Data
Date of Admission: 07/29/24
Date of Discharge: 08/04/24
-
Pending Results: No
Hospital Course
44-year-old female past medical history of anemia, chronic opioid dependent on daily basis, history of migraines, endometriosis, mild asthma, history of recent left kidney abscess status post nephrostomy tube, who was presented with complaint of
sweating chills. Initial concern for UTI and patient was started on IV antibiotics. Infectious disease was consulted. Patient underwent CT abdomen pelvis and was negative for renal abscess. Patient completed 5 days of ceftriaxone and also
completed prolonged course of antibiotics prior to arrival to the hospital. Patient blood culture and urine culture was negative. As patient remained afebrile after discussion with infectious disease interventional radiology was consulted.
Interventional radiology after follow-up imaging there was no fistula was noted and PCN tube was removed. Patient was also found to be anemia with drop in hemoglobin. FOBT was positive. Patient received total of 4 units of PRBC. Patient
underwent endoscopy with normal esophagus and normal duodenum status post biopsy. Underwent colonoscopy with examined portion of ileum and entire colon was normal. Status post polyp removal. Outpatient video capsule study was recommended.
Patient had mild elevated creatinine which resolved with IV fluids. Patient was also recommend to follow-up with her primary outpatient hematology. Patient was recommended continue following with primary doctor.
Discharge Plan
-
Patient Disposition: Home (Routine Discharge)
Discharge Diagnosis/Procedures: Anemia s/p blood transfusion and EGD/Colonoscopy
Left PCN tube removal
fever and chills
Acute kidney injury
Severe constipation
Condition: Fair
Diet: Low Cholesterol
Activity: As tolerated
Driving Restrictions: No driving for 24 hours
Referrals:
Alejandra Wright MD [Active] - None
Ignacio Fraire MD [Active] - None (call to make appointment for Video capsule study and biopsy results )
Lowell Cooper Jr., DO [Family Provider] - in less than 1 week
Prescriptions:
New
polyethylene glycol 3350 17 gram Powder In Packet
17 g PO DAILY Qty: 30 0RF
cyanocobalamin (vitamin B-12) [Vitamin B-12] 1,000 mcg Tablet
1,000 mcg PO DAILY 30 Days Qty: 30 0RF
pantoprazole [Protonix] 40 mg tablet,delayed release (DR/EC)
40 mg PO DAILY Qty: 30 0RF
Continued
cholecalciferol (vitamin D3) [Vitamin D3] 400 UNITS tablet
400 units PO DAILY
carisoprodol [Soma] 350 MG tablet
350 mg PO QIDPRN PRN (Reason: back pain)
Depo-Provera
104 mg INJ .Q3MTHS
Patient Comments:
q 12 weeks
Tylenol
1,000 mg PO PRN PRN (Reason: aches legs)
metformin 500 MG tablet
500 mg PO BID
carvedilol [Coreg] 25 MG tablet
50 mg PO BID
atorvastatin 10 MG tablet
10 mg PO DAILY
lorazepam 0.5 MG tablet
0.5 mg PO BID PRN (Reason: anxiety)
fluticasone propionate 1 SPRAY spray,suspension
2 spray intranasal DAILY
duloxetine 60 MG capsule,delayed release(DR/EC)
90 mg PO DAILY
calcium 500 mg Tablet
500 mg PO DAILY
sertraline [Zoloft] 25 mg Tablet
25 mg PO HS
morphine 15 mg Tablet
15 mg PO Q4H PRN (Reason: pain)
magnesium 200 mg Tablet
200 mg PO DAILY
pregabalin 200 mg Capsule
200 mg PO TID
ferrous sulfate 27 mg iron Tablet
27 mg PO .2 TIMES A WEEK
Nurtec ODT 75 mg Tablet,Disintegrating
75 mg PO PRN PRN (Reason: migraines)
Discontinued
ibuprofen 600 MG tablet
600 mg PO BID
zinc 10 mg Tablet
10 mg PO DAILY
Discharge Orders:
Discharge Patient (As Directed); Ordered 08/04/24
Ordered By: Gerber Mancilla
Discharge Date and Time
Discharge Date/Time: 08/04/24 17:06
Print Language: YAKUT
--- NOTE | 2024-08-04 14:30 | W.PN.ONC2 ---
Today's Communication / Plan
-
.
Impression
Impression
a/w Symptomatic Anemia, likely of chronic disease +/- component of acute blood loss/BJ
Hemoccult positive stool/GI bleed. EGD and Colonoscopy no source of bleeding
Chronic low back pain on NSAIDs and narcotics
s/p 4 U PRBC
anemia of inflammation 2/2 chronic UTI/Pyelonephritis
Plan
Plan
GI planning OP follow up
on PPI
on PO B12
abx complete so will order IV iron, can complete course OP in my office
transfuse prn
Subjective/Objective
Subjective
no new complaints
Vital Signs:
Vital Signs
Temp Pulse Resp BP Pulse Ox
98.4 F 88 22 112/69 99
08/04/24 07:30 08/04/24 07:30 08/04/24 07:30 08/04/24 07:30 08/04/24 07:30
Lab Results:
Laboratory Data
WBC 8.5 10^3/uL (4.8-10.8) 08/04/24 07:46
Hgb 7.7 g/dL (12.0-16.0) L 08/04/24 07:46
Plt Count 201 10^3/uL (130-400) 08/04/24 07:46
eGFR > 60.00 08/04/24 07:46
--- NOTE | 2024-08-04 14:43 | CM ---
Plan: discharge to home; no needs; reported father would transport home
[2024-08-04 15:00] VITALS: BP 99/61
--- NOTE | 2024-08-08 07:56 | PN.CDI ---
CDI
- -
CDI:
Physician Documentation Request
Admit Date: 07/29/24 22:40
Dear Doctor Charo,
Please review the following and provide your response in the progress notes.
Clinical Indicators:
- Patient admit with nephrostomy tube
- H&P 'Sweating/chills/leukocytosis unclear etiology could be residual left kidney abscess versus persistent UTI'
- 08/04 Oncology 'anemia of inflammation 2/2 chronic UTI/Pyelonephritis'
- 08/04 DC Summary 'Initial concern for UTI and patient was started on IV antibiotics'
Please clarify the relationship between these conditions:
Yes, _UTI__ is related to/associated with/due to _nephrostomy tube__.
No, _UTI__ is not related to/associated with/due to _nephrostomy tube_ but it is due to . (Please specify)
Unable to determine
Use of terms such as suspected, likely, concern for, or probable (associated with a specific diagnosis that is being evaluated, monitored, or treated as if it exists) are acceptable and can be coded in the inpatient setting, when documented at the
time of discharge.
Thank you,
Marichuy Marin RN
CDI Specialist
Please use your independent medical judgment in providing your response.
== END 2024-08-04 17:06 | disposition home or self-care (01) | DRG 812 ==
LOC: 4 WEST ACU 22:40
PROVIDERS: Internal Medicine; Internal Medicine Gastroenterology; Nurse Practitioner Family; Radiology Diagnostic Radiology; ADMITTING PHYSICIAN Hospitalist; ATTENDING PHYSICIAN Hospitalist; CONSULT PHYSICIAN Internal Medicine Gastroenterology; CONSULT PHYSICIAN Internal Medicine Hematology & Oncology; CONSULT PHYSICIAN Internal Medicine Infectious Disease; EMERGENCY PHYSICIAN Emergency Medicine; FAMILY PHYSICIAN Family Medicine
PROC: 30233N1 Transfusion of Nonautologous Red Blood Cells into Peripheral Vein, Percutaneous Approach (ICD-10-PCS; 2024-07-30)
PROC: 0DB68ZX Excision of Stomach, Via Natural or Artificial Opening Endoscopic, Diagnostic (ICD-10-PCS; 2024-08-01)
PROC: 0DBN8ZX Excision of Sigmoid Colon, Via Natural or Artificial Opening Endoscopic, Diagnostic (ICD-10-PCS; 2024-08-03)
PROC: 0TP5X0Z Removal of Drainage Device from Kidney, External Approach (ICD-10-PCS; 2024-08-04)
DX: D62 Acute posthemorrhagic anemia (principal); N17.9 Acute kidney failure, unspecified; F11.20 Opioid dependence, uncomplicated; N12 Tubulo-interstitial nephritis, not specified as acute or chronic; E11.649 Type 2 diabetes mellitus with hypoglycemia without coma; G89.29 Other chronic pain; M54.50 Low back pain, unspecified; F32.A Depression, unspecified; F41.9 Anxiety disorder, unspecified; G43.909 Migraine, unspecified, not intractable, without status migrainosus; D63.8 Anemia in other chronic diseases classified elsewhere; N80.9 Endometriosis, unspecified; J45.20 Mild intermittent asthma, uncomplicated; B96.20 Unspecified Escherichia coli [E. coli] as the cause of diseases classified elsewhere; E53.8 Deficiency of other specified B group vitamins; E66.01 Morbid (severe) obesity due to excess calories; K59.00 Constipation, unspecified; K64.0 First degree hemorrhoids; D12.7 Benign neoplasm of rectosigmoid junction; K31.89 Other diseases of stomach and duodenum; R79.89 Other specified abnormal findings of blood chemistry; Z68.36 Body mass index [BMI] 36.0-36.9, adult; Z79.1 Long term (current) use of non-steroidal anti-inflammatories (NSAID); Z79.899 Other long term (current) drug therapy; Z87.440 Personal history of urinary (tract) infections; Z93.6 Other artificial openings of urinary tract status; Z60.2 Problems related to living alone
CPT/HCPCS: 88305; 50389; 71046; 71275; 74177; 77001; 80048; 80053; 81003; 81015; 82607; 82728; 82746; 82962; 83010; 83036; 83540; 83550; 83615; 84703; 85014; 85018; 85025; 85027; 85045; 86850; 86900; 86901; 86920; 87040; 87086; 87502; 87811; 88342; 93005; 99291; J2916; P9016; Q9967

== ENCOUNTER 2024-08-13 14:17 | Emergency (ER) | payer MEDICARE, SELFPAY ==
[2024-08-13 14:21] VITALS: BP 117/70
[2024-08-13 14:39] LABS: % Basophils 0.5 % (0-2); % Eosinophils 1.6 % (0-6); % Immature Granulocytes 0.1 % (0-0.5); % Lymphocytes 29.6 % (20.5-51.1); % Monocytes 5.9 % (1.7-9.3); % Neutrophils 62.3 % (42.2-75.2); Absolute Eosinophils 0.1 10^3/uL (0-0.7); Absolute Lymphocytes 2.6 10^3/uL (1.2-3.4); Absolute Monocytes 0.5 10^3/uL (0.1-0.6); Absolute Neutrophils 5.5 10^3/uL (1.4-6.5); Mean Corp Hgb Conc. 32.3 g/dL (33.0-37.0); Mean Corpuscular Hgb 29.9 pg (27.0-31.0); Mean Corpuscular Volume 92.5 fL (81.0-99.0); Mean Platelet Volume 10.5 fL (7.4-10.4); Nucleated Red Blood Cells % 0 %; Platelet Count 306 10^3/uL (130-400); Red Blood Cell Count 3.35 10^6/uL (4.20-5.40); Red Cell Dist. Width 15.7 % (11.5-14.5); White Blood Cell Count 8.8 10^3/uL (4.8-10.8)
[2024-08-13 14:48] LABS: D-Dimer 0.69 ug/mlFEU (0.00-0.50)
[2024-08-13 14:52] LABS: HCG, Serum Qualitative Screen Negative
[2024-08-13 14:56] LABS: ALT (SGPT) 23 U/L (0-35); AST (SGOT) 26 U/L (14-36); Albumin 3.8 g/dl (3.5-5.0); Alkaline Phosphatase 66 U/L (38-126); Blood Urea Nitrogen 11 mg/dl (7-17); Calcium 9.8 mg/dl (8.4-10.2); Carbon Dioxide 27 mmol/L (22-30); Chloride 106 mmol/L (98-107); Glucose 174 mg/dl (70-99); Potassium 4.8 mmol/L (3.5-5.1); Sodium 143 mmol/L (135-145); Total Bilirubin 0.4 mg/dl (0.2-1.3); Total Protein 7.2 g/dl (6.3-8.2); eGFR > 60.00
--- NOTE | 2024-08-13 18:24 | ED.GENMED ---
History of Present Illness
General
Chief Complaint: Breathing Problem
Source: patient
Exam Limitations: none
Time Seen by Provider: 08/13/24 16:39
Nursing documentation reviewed up to this point in time: agreed with
History of Present Illness
History of Present Illness:
44-year-old female past medical history of diabetes hypertension recent significant anemia requiring multiple units of blood presenting to the emergency department today with concerns of right calf pain and shortness of breath. Recently received
multiple units of blood with low hemoglobin. Denies significant chest pain palpitations. Shortness of breath over the past day or so.
Past History
Past History
ED Past Medical History: [place] and Other
ED Past Surgical History: Appendectomy, Cholecystectomy and Other (Left nephrostomy drain)
Social History
Tobacco: Non-smoker
Alcohol: None
Drug: None
Living: with family
Employment: Employed
Family History
Family History: CAD and Cancer
Review of Systems
Review of Systems
Allergies reviewed?: Yes
All Other Systems: ROS reviewed and negative except as documented in HPI and ROS
Phy Exam
Physical Exam
Physical Exam:
GENERAL: Alert , in no apparent distress
EYE: pupils equal and reactive
NECK: Supple, no significant adenopathy.
ENT: o/p clr, mmm.
CARDIAC: Regular rate and rhythm .
LUNGS: Clear breath sounds bilaterally, no acute respiratory distress, no wheezes/rales/rhonchi
ABDOMEN: Soft, without focal tenderness, no r/g, no cvat
NEUROLOGICAL: Alert and oriented, no focal neuro deficits
SKIN: Warm and dry, skin intact.
MUSCULOSKELETAL: No edema, well perfused.
PSYCH: Normal and appropriate interaction.
Course
Orders/Labs/Results
Orders:
Orders
08/13/24 14:24
Test Result ONCE
08/13/24 14:25
Venous Doppler Lwr Ext Rt [US Periph Venous LOWER Ext RT] Urgent
Comment:
Reason For Exam: posterior calf pain
08/13/24 14:27
Complete Blood Count/With Diff Urgent
Comprehensive Metabolic Panel Urgent
D-Dimer Urgent
HCG, Serum Qualitative Screen Urgent
08/13/24 16:56
CT Chest PE Study Urgent
Comment:
Reason For Exam: sob, elevated dimer
08/13/24 18:23
Morphine Sulfate 4 mg IV NOW STA
08/13/24 18:26
EKG [Electrocardiogram (*1)] Urgent
Reason for Study: Fatigue / Weakness
EKG- Treatment ONCE
Abnormal Lab Results
08/13/24
14:27
RBC 3.35 L 10^6/uL
(4.20-5.40)
Hgb 10.0 L g/dL
(12.0-16.0)
Hct 31.0 L %
(37.0-47.0)
MCHC 32.3 L g/dL
(33.0-37.0)
RDW 15.7 H %
(11.5-14.5)
MPV 10.5 H fL
(7.4-10.4)
D-Dimer 0.69 H ug/mlFEU
(0.00-0.50)
Glucose 174 H mg/dl
(70-99)
08/13/24 14:27
08/13/24 14:27
Vital Signs
Initial and Last Documented VS:
Initial Vital Signs
Temp Pulse Resp BP Pulse Ox
98.3 F 101 18 117/70 98
08/13/24 14:21 08/13/24 14:21 08/13/24 14:21 08/13/24 14:21 08/13/24 14:21
Last Documented Vital Signs
Temp Pulse Resp BP Pulse Ox
98.3 F 101 18 103/65 95
08/13/24 14:21 08/13/24 14:21 08/13/24 14:21 08/13/24 19:03 08/13/24 19:03
MDM/Problems Addressed
MDM/Problems Addressed:
44-year-old female presenting to the emergency department today with concerns of right posterior calf discomfort shortness of breath. Recently had multiple units of blood. On arrival here mildly tachycardic but otherwise vital signs normal. Vital
signs have been normal during the remainder of patient's monitoring in the ER. Hemoglobin of 10 which is much above patient's baseline of recent. D-dimer was ordered and mildly elevated. CT PE performed that did not show any emergent findings.
Otherwise labs unremarkable. Patient no distress throughout stay here stable for discharge. Return precautions given.
*Critical Care Note
Total Time (30-74mins, 75-104mins- exclusive of procedures): Not Applicable
ED Attending Note
-
Portions of this chart may have been created with voice recognition software.� Occasional wrong word or��sound alike� substitutions may have occurred due to the inherent limitations of voice recognition software.
Discharge Plan
Departure
Patient Disposition: Home (Routine Discharge)
Date of Disposition: 08/13/24
Time of Disposition: 20:07
Patient with high blood pressure during this ER visit?: No
Condition: Good
Covid-19: Not Applicable
Discharge Problem:
Shortness of breath
Instructions: Shortness of Breath (Dyspnea) (DC)
Prescriptions:
No Action
cholecalciferol (vitamin D3) [Vitamin D3] 400 UNITS tablet
400 units PO DAILY
carisoprodol [Soma] 350 MG tablet
350 mg PO QIDPRN PRN (Reason: back pain)
Depo-Provera
104 mg INJ .Q3MTHS
Patient Comments:
q 12 weeks
Tylenol
1,000 mg PO PRN PRN (Reason: aches legs)
metformin 500 MG tablet
500 mg PO BID
carvedilol [Coreg] 25 MG tablet
50 mg PO BID
atorvastatin 10 MG tablet
10 mg PO DAILY
lorazepam 0.5 MG tablet
0.5 mg PO BID PRN (Reason: anxiety)
fluticasone propionate 1 SPRAY spray,suspension
2 spray intranasal DAILY
duloxetine 60 MG capsule,delayed release(DR/EC)
90 mg PO DAILY
calcium 500 mg Tablet
500 mg PO DAILY
sertraline [Zoloft] 25 mg Tablet
25 mg PO HS
morphine 15 mg Tablet
15 mg PO Q4H PRN (Reason: pain)
magnesium 200 mg Tablet
200 mg PO DAILY
pregabalin 200 mg Capsule
200 mg PO TID
ferrous sulfate 27 mg iron Tablet
27 mg PO .2 TIMES A WEEK
Nurtec ODT 75 mg Tablet,Disintegrating
75 mg PO PRN PRN (Reason: migraines)
polyethylene glycol 3350 17 gram Powder In Packet
17 g PO DAILY Qty: 30 0RF
cyanocobalamin (vitamin B-12) [Vitamin B-12] 1,000 mcg Tablet
1,000 mcg PO DAILY 30 Days Qty: 30 0RF
pantoprazole [Protonix] 40 mg tablet,delayed release (DR/EC)
40 mg PO DAILY Qty: 30 0RF
Referrals:
Lowell Cooper Jr., DO [Family Provider] -
Activity Restrictions/Additional Instructions:
You came to the emergency department today with concerns of shortness of breath. You had a reassuring assessment. Please closely as an outpatient. Return for any worsening, new or concerning symptoms.
Interventions
Interventions:
*Risk Screen - Suicide Last Done: 08/13/24 14:21
*General Assessment Last Done: 08/13/24 14:21
*Neglect/Abuse Screening Last Done: 08/13/24 14:21
ED- Cardiac Assessment Last Done: 08/13/24 20:01
ED- Pulmonary Assessment Last Done: 08/13/24 20:01
Discharge Date and Time
Print Language: ITALIAN
[2024-08-13 19:03] VITALS: BP 103/65
[2024-08-13] MEDS: MORPHINE SULFATE 4 MG IV (19:22)
== END 2024-08-13 21:13 | disposition home or self-care (01) ==
LOC: EMR 14:17
PROVIDERS: Emergency Medicine; EMERGENCY PHYSICIAN Emergency Medicine; FAMILY PHYSICIAN Family Medicine
DX: R06.02 Shortness of breath (principal); M79.661 Pain in right lower leg; I25.2 Old myocardial infarction; E11.9 Type 2 diabetes mellitus without complications; I10 Essential (primary) hypertension; D64.9 Anemia, unspecified; R79.1 Abnormal coagulation profile
CPT/HCPCS: 99284; 96374; 71275; 80053; 84703; 85025; 85379; 93005; 93971; Q9967

== ENCOUNTER 2024-08-17 19:09 | Emergency (ER) | payer MEDICARE, SELFPAY ==
[2024-08-17 19:11] VITALS: BP 126/84
[2024-08-17 19:31] LABS: % Basophils 0.5 % (0-2); % Eosinophils 0.7 % (0-6); % Immature Granulocytes 0.3 % (0-0.5); % Lymphocytes 22.6 % (20.5-51.1); % Monocytes 6.4 % (1.7-9.3); % Neutrophils 69.5 % (42.2-75.2); Absolute Basophils 0.1 10^3/uL (0-0.2); Absolute Eosinophils 0.1 10^3/uL (0-0.7); Absolute Lymphocytes 2.5 10^3/uL (1.2-3.4); Absolute Monocytes 0.7 10^3/uL (0.1-0.6); Absolute Neutrophils 7.8 10^3/uL (1.4-6.5); Hematocrit 34.3 % (37.0-47.0); Mean Corp Hgb Conc. 32.1 g/dL (33.0-37.0); Mean Corpuscular Hgb 29.3 pg (27.0-31.0); Mean Corpuscular Volume 91.5 fL (81.0-99.0); Mean Platelet Volume 10.8 fL (7.4-10.4); Nucleated Red Blood Cells % 0 %; Platelet Count 285 10^3/uL (130-400); Red Blood Cell Count 3.75 10^6/uL (4.20-5.40); Red Cell Dist. Width 14.6 % (11.5-14.5); White Blood Cell Count 11.2 10^3/uL (4.8-10.8)
[2024-08-17 19:48] LABS: HCG, Serum Qualitative Screen Negative
[2024-08-17 19:54] LABS: ALT (SGPT) 15 U/L (0-35); AST (SGOT) 16 U/L (14-36); Albumin 4.5 g/dl (3.5-5.0); Alkaline Phosphatase 64 U/L (38-126); Blood Urea Nitrogen 15 mg/dl (7-17); Calcium 9.7 mg/dl (8.4-10.2); Carbon Dioxide 26 mmol/L (22-30); Chloride 109 mmol/L (98-107); Glucose 127 mg/dl (70-99); Potassium 5.3 mmol/L (3.5-5.1); Sodium 144 mmol/L (135-145); Total Bilirubin 0.4 mg/dl (0.2-1.3); Total Protein 7.7 g/dl (6.3-8.2); eGFR > 60.00
[2024-08-17 21:15] VITALS: BMI 37.5
[2024-08-17 21:16] VITALS: BP 124/84
--- NOTE | 2024-08-17 21:33 | ED.GENMED ---
History of Present Illness
General
Chief Complaint: Fatigue
Source: patient
Exam Limitations: none
Time Seen by Provider: 08/17/24 21:25
History of Present Illness
History of Present Illness:
See MDM
Past History
Past History
ED Past Medical History: [place] and Other
ED Past Surgical History: Appendectomy, Cholecystectomy and Other (Left nephrostomy drain)
Social History
Tobacco: Non-smoker
Alcohol: None
Drug: None
Living: with family
Employment: Employed
Family History
Family History: CAD and Cancer
Phy Exam
Physical Exam
Physical Exam:
See MDM
Course
Orders/Labs/Results
Orders:
Orders
08/17/24 19:15
Test Result ONCE
08/17/24 19:20
Type And Crossmatch [Type+Screen] Urgent
Complete Blood Count/With Diff Urgent
Comprehensive Metabolic Panel Urgent
HCG, Serum Qualitative Screen Urgent
08/17/24 21:31
Lorazepam [Ativan] 1 mg PO NOW STA
08/17/24 22:29
Urinalysis Reflex To Culture Urgent
Abnormal Lab Results
08/17/24
19:20
WBC 11.2 H 10^3/uL
(4.8-10.8)
RBC 3.75 L 10^6/uL
(4.20-5.40)
Hgb 11.0 L g/dL
(12.0-16.0)
Hct 34.3 L %
(37.0-47.0)
MCHC 32.1 L g/dL
(33.0-37.0)
RDW 14.6 H %
(11.5-14.5)
MPV 10.8 H fL
(7.4-10.4)
Absolute Neuts (auto) 7.8 H 10^3/uL
(1.4-6.5)
Absolute Monos (auto) 0.7 H 10^3/uL
(0.1-0.6)
Potassium 5.3 H mmol/L
(3.5-5.1)
Chloride 109 H mmol/L
(98-107)
Glucose 127 H mg/dl
(70-99)
08/17/24 19:20
08/17/24 19:20
Vital Signs
Initial and Last Documented VS:
Initial Vital Signs
Temp Pulse Resp BP Pulse Ox
98.4 F 95 16 126/84 100
08/17/24 19:11 08/17/24 19:11 08/17/24 19:11 08/17/24 19:11 08/17/24 19:11
Last Documented Vital Signs
Temp Pulse Resp BP Pulse Ox
98.4 F 95 16 124/84 96
08/17/24 19:11 08/17/24 19:11 08/17/24 19:11 08/17/24 21:16 08/17/24 21:45
MDM/Problems Addressed
Differential Diagnosis Includes:
HPI and MDM Narrative:
44-year-old female presenting for evaluation of generalized weakness and fatigue. This has been ongoing for several months. Patient has had significant issues over the past few months with sparked her evaluation in the emergency department.
Patient does acknowledge that she could just be anxious but is worried that she could be anemic or possibly have another urinary tract infection. When I explained that her lab work does not show any significant abnormalities, patient started to
feel better. Her hemoglobin is rising appropriately. She has very mild hyperkalemia but she does appear mildly dry. Will obtain urinalysis but patient already like she can go home
Physical exam
General: Well appearing and non-toxic
HEENT: protecting airway
Neck: appears supple
CV: No evidence of cyanosis. Regular rate and rhythm
Resp: No accessory muscle use. Lungs clear
Abd: Non-distended and nontender
Extremities: No deformities. No leg edema
Neuro: alert
Psych: Normal affect
Skin: Intact
Problems Addressed including Acute and Chronic Conditions affecting care:
1. Generalized fatigue
Acuity: acute
Prognosis: stable
Details: Lab work does not explain symptoms. Will obtain urinalysis
Updates
Urinalysis negative. Patient feels comfortable going home
Differential Diagnosis (but not limited to): UTI, anemia, dehydration
Testing considered: Chest x-ray but lungs clear
Drug therapy (if applicable): OTC meds, please see d/c instruction regarding Rx drugs
Amount and/or Complexity of Data Reviewed
Clinical info obtained from: Patient
External data reviewed: Recent history of renal abscess
Labs I independently reviewed (but not limited to): Mild hyperkalemia, mild leukocytosis
Radiology: N/A
Pulse Ox: not hypoxic
EKG independently reviewed: N/A
Photographic Double: N/A
Critical Care: N/A
Risk of Complication:
Social Determinants of health: Good social support
Discussed with other providers: N/A
Escalation of Care includes Admit/Obs: After being observed in the Emergency Department, pt stable for discharge.
Occasional wrong word or 'sound a like' substitutions may have occurred due to the inherent limitations of voice recognition software. Read the chart carefully and recognize, using context, where substitutions have occurred.
*Critical Care Note
Total Time (30-74mins, 75-104mins- exclusive of procedures): Not Applicable
ED Attending Note
-
Portions of this chart may have been created with voice recognition software.� Occasional wrong word or��sound alike� substitutions may have occurred due to the inherent limitations of voice recognition software.
Discharge Plan
Departure
Patient Disposition: Home (Routine Discharge)
Date of Disposition: 08/17/24
Time of Disposition: 22:48
Patient with high blood pressure during this ER visit?: No
Discharge Problem:
Fatigue
Instructions: Fatigue (DC)
Prescriptions:
No Action
cholecalciferol (vitamin D3) [Vitamin D3] 400 UNITS tablet
400 units PO DAILY
carisoprodol [Soma] 350 MG tablet
350 mg PO QIDPRN PRN (Reason: back pain)
Depo-Provera
104 mg INJ .Q3MTHS
Patient Comments:
q 12 weeks
Tylenol
1,000 mg PO PRN PRN (Reason: aches legs)
metformin 500 MG tablet
500 mg PO BID
carvedilol [Coreg] 25 MG tablet
50 mg PO BID
atorvastatin 10 MG tablet
10 mg PO DAILY
lorazepam 0.5 MG tablet
0.5 mg PO BID PRN (Reason: anxiety)
fluticasone propionate 1 SPRAY spray,suspension
2 spray intranasal DAILY
duloxetine 60 MG capsule,delayed release(DR/EC)
90 mg PO DAILY
calcium 500 mg Tablet
500 mg PO DAILY
sertraline [Zoloft] 25 mg Tablet
25 mg PO HS
morphine 15 mg Tablet
15 mg PO Q4H PRN (Reason: pain)
magnesium 200 mg Tablet
200 mg PO DAILY
pregabalin 200 mg Capsule
200 mg PO TID
ferrous sulfate 27 mg iron Tablet
27 mg PO .2 TIMES A WEEK
Nurtec ODT 75 mg Tablet,Disintegrating
75 mg PO PRN PRN (Reason: migraines)
polyethylene glycol 3350 17 gram Powder In Packet
17 g PO DAILY Qty: 30 0RF
cyanocobalamin (vitamin B-12) [Vitamin B-12] 1,000 mcg Tablet
1,000 mcg PO DAILY 30 Days Qty: 30 0RF
pantoprazole [Protonix] 40 mg tablet,delayed release (DR/EC)
40 mg PO DAILY Qty: 30 0RF
Referrals:
Lowell Cooper Jr., DO [Family Provider] -
Activity Restrictions/Additional Instructions:
Please return for any worsening symptoms.
You may return at any time if you have further concerns.
Please follow up with your doctor at the first available appointment, preferably this week. Please discuss your symptoms and have your potassium rechecked this week.
Thank you for choosing [facility].
Interventions
Interventions:
*Risk Screen - Suicide Last Done: 08/17/24 21:15
*General Assessment Last Done: 08/17/24 21:15
*Neglect/Abuse Screening Last Done: 08/17/24 21:15
*ED- Fall Risk Assessment Last Done: 08/17/24 21:15
*ED COVID-19 Vaccine History Last Done: 08/17/24 21:15
Discharge Date and Time
Print Language: BRAZILIAN
[2024-08-17 22:37] LABS: Urine Albumin Negative (Neg - Trace); Urine Bilirubin Negative (Negative); Urine Character Clear (Clear); Urine Color Yellow; Urine Glucose Negative (Negative); Urine Ketone Negative (Negative); Urine Leukocyte Negative (Negative); Urine Nitrite Negative (Negative); Urine Occult Blood Negative (Negative); Urine Urobilinogen Negative (Neg - 1+)
[2024-08-17] MEDS: ATIVAN 1 MG PO (22:54)
[2024-08-17 22:59] VITALS: BP 101/70
== END 2024-08-17 22:59 | disposition home or self-care (01) ==
LOC: EMR 19:09
PROVIDERS: EMERGENCY PHYSICIAN Student in an Organized Health Care Education/Training Program; FAMILY PHYSICIAN Family Medicine
DX: R53.83 Other fatigue (principal); I25.2 Old myocardial infarction; Z82.49 Family history of ischemic heart disease and other diseases of the circulatory system; Z90.49 Acquired absence of other specified parts of digestive tract
CPT/HCPCS: 99283; 80053; 81003; 84703; 85025; 86850; 86900; 86901

== ENCOUNTER 2024-08-24 14:43 | Emergency (ER) | payer MEDICARE, SELFPAY ==
[2024-08-24] VITALS (13 sets, daily range): BP systolic 79–112; BP diastolic 66–78; BMI 28.7
--- NOTE | 2024-08-24 15:27 | ED.GENMED ---
History of Present Illness
<Lindsey Ferris PA-C - Last Filed: 08/25/24 23:40>
General
Chief Complaint: Heart Rate Problem
Source: patient
Exam Limitations: none
Time Seen by Provider: 08/24/24 15:11
Nursing documentation reviewed up to this point in time: agreed with
History of Present Illness
History of Present Illness:
Patient is a 44-year-old female presenting to the emergency department with elevated heart rate found at routine primary care office visit earlier today. Patient states she was scheduled to see her primary care today for routine visit and while in
the office her heart rate was 148. Her primary care referred her to the emergency department for further evaluation.
Patient states that she was unaware that her heart rate was as high and denies any palpitations. She denies any chest pain, shortness of breath, lightheadedness/dizziness. No recent fevers or chills. No abdominal pain. No urinary symptoms.
Patient states she does have a history of tachycardia for which she takes carvedilol 50 mg twice daily. However�she states her heart rate has not typically gotten this high.
Patient does take morphine 15 mg every 6 as needed pain. She does state that she ran out of this prescription yesterday and is scheduled to have a telehealth appoint with her pain management doctor today.
Patient denies alcohol use
Past History
<Lindsey Ferris PA-C - Last Filed: 08/25/24 23:40>
Past History
ED Past Medical History: [place] and Other
ED Past Surgical History: Appendectomy, Cholecystectomy and Other (Left nephrostomy drain)
Social History
Tobacco: Non-smoker
Alcohol: None
Drug: None
Living: with family
Employment: Employed
Family History
Family History: CAD and Cancer
Review of Systems
<Lindsey Ferris PA-C - Last Filed: 08/25/24 23:40>
Review of Systems
Allergies reviewed?: Yes
All Other Systems: ROS reviewed and negative except as documented in HPI and ROS
Phy Exam
<Lindsey Ferris PA-C - Last Filed: 08/25/24 23:40>
Physical Exam
Physical Exam:
Vitals: Tachycardic, otherwise vital signs stable. Afebrile
General: Patient is well appearing, no acute distress. Nontoxic appearing
Skin: Warm and dry, no rashes or lesions
Head: Normocephalic, atraumatic
Eyes: Sclera nonicteric. EOMs intact. No nystagmus.
Throat: Protecting airway
Neck: Normal ROM, no cervical spine tenderness, no meningismus
Cardiac: Tachycardic, normal rhythm, no murmurs.
Pulm: Normal respiratory effort, no wheezes, rales, rhonchi heard on exam.
Abdomen: Abdomen soft and nontender. No CVA tenderness. Well-healing site on left flank from prior nephrostomy
Extremities: No evidence of cyanosis or edema
Neuro: AAOx3. CN II-XII intact. No focal neurologic deficits.
Psychiatric: Normal affect.
Course
<Lindsey Ferris PA-C - Last Filed: 08/25/24 23:40>
Orders/Labs/Results
Orders:
Orders
08/24/24 14:58
Electrocardiogram (*1) Urgent
Reason for Study: Chest Pain
EKG- Treatment ONCE
08/24/24 14:59
Test Result ONCE
08/24/24 15:26
0.9% Sodium Chloride 1000 ml [Nss] 1,000 ml IV BOLUS
08/24/24 16:02
Test Result ONCE
08/24/24 16:05
Complete Blood Count/With Diff Urgent
Comprehensive Metabolic Panel Urgent
HCG, Serum Qualitative Screen Urgent
TSH Reflex To Free T4 Urgent
08/24/24 16:20
0.9% Sodium Chloride 1000 ml [Nss] 1,000 ml IV BOLUS
08/24/24 16:26
Acetaminophen [Tylenol] 650 mg PO NOW STA
Ondansetron Injectable [Zofran] 4 mg IV NOW STA
08/24/24 16:42
Urinalysis Reflex To Culture Urgent
Date Specimen was Collected: 08/24/24
Time Specimen was Collected: 16:22
Urine Microscopic Reflex Cult Urgent
Urine Culture Urgent
SANGITA Source: U
Specimen Description:
Date Specimen was Collected: 08/24/24
Time Specimen was Collected: 16:22
08/24/24 19:09
Morphine Sulfate Extended Rel. [Ms Contin (Extended Release)] 15 mg PO NOW STA
08/24/24 19:55
Cefuroxime Axetil [Ceftin] 500 mg PO NOW STA
Abnormal Lab Results
08/24/24 08/24/24
16:05 16:42
WBC 12.4 H 10^3/uL
(4.8-10.8)
RBC 3.98 L 10^6/uL
(4.20-5.40)
Hgb 11.8 L g/dL
(12.0-16.0)
Hct 36.1 L %
(37.0-47.0)
MCHC 32.7 L g/dL
(33.0-37.0)
MPV 11.1 H fL
(7.4-10.4)
Absolute Neuts (auto) 8.8 H 10^3/uL
(1.4-6.5)
Absolute Monos (auto) 0.7 H 10^3/uL
(0.1-0.6)
Chloride 109 H mmol/L
(98-107)
Glucose 231 H mg/dl
(70-99)
Leukocyte Esterase Rfl 1+ A
(Negative)
Urine WBC (Reflex) 11-15 A /HPF
(0-5)
Urine Bacteria (Reflex) Few A
(Negative)
Urine Albumin (Reflex) 2+ A
(Neg - Trace)
08/24/24 16:05
08/24/24 16:05
Vital Signs
Initial and Last Documented VS:
Initial Vital Signs
Temp Pulse Resp BP Pulse Ox
98.5 F 148 18 112/78 95
08/24/24 14:55 08/24/24 14:55 08/24/24 14:55 08/24/24 14:55 08/24/24 14:55
Last Documented Vital Signs
Temp Pulse Resp BP Pulse Ox
97.6 F 78 18 110/74 99
08/24/24 15:51 08/24/24 19:26 08/24/24 19:26 08/24/24 19:26 08/24/24 19:26
<Gabriela Bhatia, DO - Last Filed: 08/24/24 19:42>
Orders/Labs/Results
Orders:
Orders
08/24/24 14:58
Electrocardiogram (*1) Urgent
Reason for Study: Chest Pain
EKG- Treatment ONCE
08/24/24 14:59
Test Result ONCE
08/24/24 15:26
0.9% Sodium Chloride 1000 ml [Nss] 1,000 ml IV BOLUS
08/24/24 16:02
Test Result ONCE
08/24/24 16:05
Complete Blood Count/With Diff Urgent
Comprehensive Metabolic Panel Urgent
HCG, Serum Qualitative Screen Urgent
TSH Reflex To Free T4 Urgent
08/24/24 16:20
0.9% Sodium Chloride 1000 ml [Nss] 1,000 ml IV BOLUS
08/24/24 16:26
Acetaminophen [Tylenol] 650 mg PO NOW STA
Ondansetron Injectable [Zofran] 4 mg IV NOW STA
08/24/24 16:42
Urinalysis Reflex To Culture Urgent
Date Specimen was Collected: 08/24/24
Time Specimen was Collected: 16:22
Urine Microscopic Reflex Cult Urgent
Urine Culture Urgent
SANGITA Source: U
Specimen Description:
Date Specimen was Collected: 08/24/24
Time Specimen was Collected: 16:22
08/24/24 19:09
Morphine Sulfate Extended Rel. [Ms Contin (Extended Release)] 15 mg PO NOW STA
08/24/24 19:55
Cefuroxime Axetil [Ceftin] 500 mg PO NOW STA
Abnormal Lab Results
08/24/24 08/24/24
16:05 16:42
WBC 12.4 H 10^3/uL
(4.8-10.8)
RBC 3.98 L 10^6/uL
(4.20-5.40)
Hgb 11.8 L g/dL
(12.0-16.0)
Hct 36.1 L %
(37.0-47.0)
MCHC 32.7 L g/dL
(33.0-37.0)
MPV 11.1 H fL
(7.4-10.4)
Absolute Neuts (auto) 8.8 H 10^3/uL
(1.4-6.5)
Absolute Monos (auto) 0.7 H 10^3/uL
(0.1-0.6)
Chloride 109 H mmol/L
(98-107)
Glucose 231 H mg/dl
(70-99)
Leukocyte Esterase Rfl 1+ A
(Negative)
Urine WBC (Reflex) 11-15 A /HPF
(0-5)
Urine Bacteria (Reflex) Few A
(Negative)
Urine Albumin (Reflex) 2+ A
(Neg - Trace)
08/24/24 16:05
08/24/24 16:05
Vital Signs
Initial and Last Documented VS:
Initial Vital Signs
Temp Pulse Resp BP Pulse Ox
98.5 F 148 18 112/78 95
08/24/24 14:55 08/24/24 14:55 08/24/24 14:55 08/24/24 14:55 08/24/24 14:55
Last Documented Vital Signs
Temp Pulse Resp BP Pulse Ox
97.6 F 78 18 110/74 99
08/24/24 15:51 08/24/24 19:26 08/24/24 19:26 08/24/24 19:26 08/24/24 19:26
<Lindsey Ferris PA-C - Last Filed: 08/25/24 23:40>
MDM/Problems Addressed
Differential Diagnosis Includes:
Not limited to: Acute dehydration, electrolyte abnormality, cardiac arrhythmia, hyperthyroid, medication side effect, etc.
MDM/Problems Addressed:
44-year-old female with complicated medical history presenting from primary care's office with asymptomatic tachycardia. Denies any chest pain, shortness of breath, fever, or other infectious symptoms. On arrival she has soft BP. Patient does
report history of tachycardia although not to this degree. Physical exam as above. Patient overall well-appearing, no apparent distress. Tachycardic, normal heart sounds. Benign abdominal exam. Differential broad. Patient was seen about 10
days ago in ED and had negative CTA chest. Patient has no clinical evidence of DVT on exam. Do not suspect PE today. Given patient history of urosepsis�will obtain basic labs and urinalysis. Will give IV fluids.
Update: Basic labs unremarkable other than mild leukocytosis. Hemoglobin is trending up. Mild hyperglycemia noted although patient does report she just ate chicken nuggets. TSH normal. Urinalysis somewhat equivocal for infection. Patient has
received 2 L IV fluids with improvement in BP. Heart rate has normalized. Patient remains well and comfortable appearing. No evidence of significant underlying infectious process. However given somewhat equivocal urinalysis with history of
urosepsis/will initiate antibiotics pending urine culture. Patient has prescribed Ceftin in the past. Patient given first dose in emergency department remainder prescription sent to pharmacy. Overall feel stable for discharge home with return
precautions. Advised follow-up with cardiology and primary care for close follow-up of chronic issues.. Return precautions discussed. Patient seen with attending physician.
Chronic conditions affecting care:
Diabetes
Acute Exacerbation and/or Progression of Chronic Illness:
Acutely hyperglycemic
<Lindsey Ferris PA-C - Last Filed: 08/25/24 23:40>
*Pulse Oximetry
Patient hypoxic: no
*EKG
Interpreted by ED Provider?: Yes
EKG Intrepretation Date: 08/24/24
Interpretation: normal
Comparison EKG: no changes
Heart Rate: 90
Rate: normal
Rhythm: sinus and sinus arrhythmia
[place]: normal axis
Interval: normal QT interval
QRS Pattern: normal QRS
Ischemia: no ischemia
*Wharf Laborer Interpretation
Rate: tachycardiac
Interpretation: abnormal
Heart Rate: 112
Rhythm: sinus
*Critical Care Note
Total Time (30-74mins, 75-104mins- exclusive of procedures): Not Applicable
Data Reviewed
Review of Other/Old Records Reveals: Radiology Studies (CTA chest 08/13/2024-no evidence of pulmonary embolism)
ED Attending Note
<Lindsey Ferris PA-C - Last Filed: 08/25/24 23:40>
-
Portions of this chart may have been created with voice recognition software.� Occasional wrong word or��sound alike� substitutions may have occurred due to the inherent limitations of voice recognition software.
<Gabriela Bhatia DO - Last Filed: 08/24/24 19:42>
ED Attending Note
Patient seen and examined by attending physician: Yes
I performed the substantive portion of visit, reviewed & personally made and approve the management plan that is documented in note by myself or KRISTINE.: Yes
I performed a history and physical exam of patient and discussed management with resident, I reviewed resident's note and agree with documented findings and plan of care.: Yes
ED Attending Note:
Patient seen and evaluated at bedside, 44-year-old female with history of anemia, diabetes, tachycardia, chronic opioid dependence presenting to the emergency department for elevated heart rate, which was found at her routine PCP appointment today.
Patient however does note chronic issues with tachycardia, is on Coreg. She presently denies any dizziness, lightheadedness, chest pain, difficulty breathing. Does note complicated hospital admissions for sepsis from urinary source as well as
anemia requiring transfusions. Denies any present bleeding. Vital signs are significant for tachycardia.
On exam, patient resting comfortably, no acute distress or discomfort. EKG confirms sinus tachycardia. Patient had unremarkable workup in the emergency department. No significant signs of anemia. Patient's urine does show some possible signs of
infection, however patient is denying any dysuria. Patient intermittently noted to be hypotensive in the emergency department, unclear etiology. Patient administered IV fluids with improvement. Patient does note that she has had low blood
pressure in the emergency department in the past. No significant signs of dehydration or volume depletion. Patient recently had workup for PE, negative with a negative CT of the chest. No hypoxia or respiratory symptoms. Ultimately feel stable
for discharge with continued close outpatient follow-up of her underlying chronic issues. Return precautions discussed and patient
Discharge Plan
Departure
Patient Disposition: Home (Routine Discharge)
Date of Disposition: 08/24/24
Time of Disposition: 19:19
Patient with high blood pressure during this ER visit?: No
Condition: Good
Covid-19: Not Applicable
Discharge Problem:
Tachycardia
Instructions: Tachycardia
Prescriptions:
New
cefuroxime axetil 500 mg tablet
500 mg PO BID 5 Days Qty: 10 0RF
No Action
cholecalciferol (vitamin D3) [Vitamin D3] 400 UNITS tablet
400 units PO DAILY
carisoprodol [Soma] 350 MG tablet
350 mg PO QIDPRN PRN (Reason: back pain)
Depo-Provera
104 mg INJ .Q3MTHS
Patient Comments:
q 12 weeks
Tylenol
1,000 mg PO PRN PRN (Reason: aches legs)
metformin 500 MG tablet
500 mg PO BID
carvedilol [Coreg] 25 MG tablet
50 mg PO BID
atorvastatin 10 MG tablet
10 mg PO DAILY
lorazepam 0.5 MG tablet
0.5 mg PO BID PRN (Reason: anxiety)
fluticasone propionate 1 SPRAY spray,suspension
2 spray intranasal DAILY
duloxetine 60 MG capsule,delayed release(DR/EC)
90 mg PO DAILY
calcium 500 mg Tablet
500 mg PO DAILY
sertraline [Zoloft] 25 mg Tablet
25 mg PO HS
morphine 15 mg Tablet
15 mg PO Q4H PRN (Reason: pain)
magnesium 200 mg Tablet
200 mg PO DAILY
pregabalin 200 mg Capsule
200 mg PO TID
ferrous sulfate 27 mg iron Tablet
27 mg PO .2 TIMES A WEEK
Nurtec ODT 75 mg Tablet,Disintegrating
75 mg PO PRN PRN (Reason: migraines)
polyethylene glycol 3350 17 gram Powder In Packet
17 g PO DAILY Qty: 30 0RF
cyanocobalamin (vitamin B-12) [Vitamin B-12] 1,000 mcg Tablet
1,000 mcg PO DAILY 30 Days Qty: 30 0RF
pantoprazole [Protonix] 40 mg tablet,delayed release (DR/EC)
40 mg PO DAILY Qty: 30 0RF
Referrals:
Romulo Black MD [Active] - Next open appointment
Lowell Cooper Jr., [Family Provider] -
Activity Restrictions/Additional Instructions:
Return to the emergency department with any fevers, chills, abdominal pain, back pain, urinary symptoms, lightheadedness/dizziness, or any other concerns
- As discussed�we will send a culture of your urine today. We did start you on a course of antibiotics to cover for possible underlying infection. Take this twice a day for the next 5 days.
- Given your intermittent tachycardia and low blood pressure�you should follow-up with cardiology for further evaluation/management. Their contact information has been provided for you above.
- It is important to stay well-hydrated.
- Follow-up with primary care and cardiology for further evaluation/management to ensure that symptoms are improving
Monitor your symptoms closely return to the emergency department with any acute worsening/new symptoms or any other signs of infection
Interventions
Interventions:
*Risk Screen - Suicide Last Done: 08/24/24 15:51
*General Assessment Last Done: 08/24/24 15:51
*Neglect/Abuse Screening Last Done: 08/24/24 15:51
*ED- Fall Risk Assessment Last Done: 08/24/24 15:51
*ED COVID-19 Vaccine History Last Done: 08/24/24 15:51
*Nursing Disposition Last Done: 08/24/24 20:24
ED- Cardiac Assessment Last Done: 08/24/24 15:51
ED- Pulmonary Assessment Last Done: 08/24/24 15:51
Discharge Date and Time
Discharge Date/Time: 08/24/24 20:26
Print Language: CHADIAN
[2024-08-24] MEDS: NSS 1000 IV ×2 (15:49→16:37)
[2024-08-24 16:11] LABS: % Basophils 0.5 % (0-2); % Eosinophils 0.6 % (0-6); % Immature Granulocytes 0.3 % (0-0.5); % Lymphocytes 21.9 % (20.5-51.1); % Monocytes 5.7 % (1.7-9.3); Absolute Basophils 0.1 10^3/uL (0-0.2); Absolute Eosinophils 0.1 10^3/uL (0-0.7); Absolute Lymphocytes 2.7 10^3/uL (1.2-3.4); Absolute Monocytes 0.7 10^3/uL (0.1-0.6); Absolute Neutrophils 8.8 10^3/uL (1.4-6.5); Hematocrit 36.1 % (37.0-47.0); Hemoglobin 11.8 g/dL (12.0-16.0); Mean Corp Hgb Conc. 32.7 g/dL (33.0-37.0); Mean Corpuscular Hgb 29.6 pg (27.0-31.0); Mean Corpuscular Volume 90.7 fL (81.0-99.0); Mean Platelet Volume 11.1 fL (7.4-10.4); Nucleated Red Blood Cells % 0 %; Platelet Count 266 10^3/uL (130-400); Red Blood Cell Count 3.98 10^6/uL (4.20-5.40); White Blood Cell Count 12.4 10^3/uL (4.8-10.8)
[2024-08-24 16:24] LABS: HCG, Serum Qualitative Screen Negative
[2024-08-24 16:28] LABS: ALT (SGPT) 22 U/L (0-35); AST (SGOT) 22 U/L (14-36); Albumin 4.6 g/dl (3.5-5.0); Alkaline Phosphatase 78 U/L (38-126); Blood Urea Nitrogen 15 mg/dl (7-17); Calcium 9.6 mg/dl (8.4-10.2); Carbon Dioxide 22 mmol/L (22-30); Chloride 109 mmol/L (98-107); Estimated Creatinine Clearance 84 ml/min; Glucose 231 mg/dl (70-99); Potassium 4.8 mmol/L (3.5-5.1); Sodium 144 mmol/L (135-145); Total Bilirubin 0.5 mg/dl (0.2-1.3); Total Protein 7.9 g/dl (6.3-8.2); eGFR > 60.00
[2024-08-24] MEDS: TYLENOL 650 MG PO (16:37)
[2024-08-24] MEDS: ZOFRAN 4 MG IV (16:38)
[2024-08-24 16:47] LABS: Urine Albumin 2+ (Neg - Trace); Urine Bilirubin Negative (Negative); Urine Character Clear (Clear); Urine Color Yellow; Urine Glucose Negative (Negative); Urine Ketone Negative (Negative); Urine Leukocyte 1+ (Negative); Urine Nitrite Negative (Negative); Urine Occult Blood Negative (Negative); Urine Specific Gravity 1.015 (<1.030); Urine Urobilinogen Negative (Neg - 1+)
[2024-08-24 16:52] LABS: Urine Squamous Cell >30 /LPF (Few)
[2024-08-24 16:53] LABS: Urine Bacteria Few (Negative); Urine Calcium Oxalate Crystals Seen; Urine Mucus Few; Urine Red Blood Cell 0-2 /HPF (0-2)
[2024-08-24 16:57] LABS: TSH Reflex To Free T4 1.21 uIU/ml (0.47-4.68)
[2024-08-24] MEDS: CEFTIN 500 MG PO (20:17)
== END 2024-08-24 20:26 | disposition home or self-care (01) ==
LOC: EMR 14:43
PROVIDERS: Physician Assistant; EMERGENCY PHYSICIAN Student in an Organized Health Care Education/Training Program; FAMILY PHYSICIAN Family Medicine
DX: R00.0 Tachycardia, unspecified (principal); D64.9 Anemia, unspecified; E11.9 Type 2 diabetes mellitus without complications
CPT/HCPCS: 99284; 96374; 96361; 80053; 81003; 81015; 84443; 84703; 85025; 87086; 93005

== ENCOUNTER 2024-09-30 20:44 | Inpatient (IN) | payer MEDICARE, SELFPAY ==
[2024-09-30 14:34] VITALS: BP 122/75
--- NOTE | 2024-09-30 17:21 | ED.GENMED ---
History of Present Illness
General
Chief Complaint: Headache
Source: patient
Exam Limitations: none
Time Seen by Provider: 09/30/24 17:10
History of Present Illness
History of Present Illness:
See MDM
Past History
Past History
ED Past Medical History: [place] and Other
ED Past Surgical History: Appendectomy, Cholecystectomy and Other (Left nephrostomy drain)
Social History
Tobacco: Non-smoker
Alcohol: None
Drug: None
Living: with family
Employment: Employed
Family History
Family History: CAD and Cancer
Phy Exam
Physical Exam
Physical Exam:
See MDM
Course
Orders/Labs/Results
Orders:
Orders
09/30/24 17:19
0.9% Sodium Chloride 1000 ml [Nss] 1,000 ml IV BOLUS
HYDROmorphone [Dilaudid] 1 mg IV NOW STA
Ketorolac [Toradol] 30 mg IV NOW STA
Metoclopramide [Reglan] 10 mg IV NOW STA
09/30/24 17:21
Test Result ONCE
09/30/24 17:45
Complete Blood Count/With Diff Urgent
Comprehensive Metabolic Panel Urgent
HCG, Urine Qualitative Screen Urgent
Date Specimen was Collected: 09/30/24
Time Specimen was Collected: 17:22
Magnesium Urgent
Comment: ADD ON
Urinalysis Reflex To Culture Urgent
Date Specimen was Collected: 09/30/24
Time Specimen was Collected: 17:22
Urine Microscopic Reflex Cult Urgent
09/30/24 18:36
Dextrose 50%-Water [Dextrose 50% Syringe] 12.5 grams IV [id number] PRN
Dextrose 50%-Water [Dextrose 50% Syringe] 25 grams IV NOW STA
HYDROmorphone [Dilaudid] 1 mg IV NOW STA
Insulin Human Regular [Novolin R] 5 units IV NOW STA
Sodium Zirconium Cyclosilicate [Lokelma] 10 gram PO NOW STA
09/30/24 18:37
Electrocardiogram (*1) Urgent
Reason for Study: Other
Other Reason for Exam: hyperkalemia
EKG- Treatment ONCE
Bedside Glucose PRE IV Insulin- HyperK+ NOW
09/30/24 19:38
Add On- LAB Urgent
Tests Added?: magnesium level
09/30/24 20:07
Bedside Glucose POST IV Insulin- HyperK+ Q1HX2,Q2HX2
09/30/24 20:25
Admit/Transfer Patient As Directed
Co-Sign Provider:
Level of Care: Inpatient admission
Assign to:: Telemetry
Physician / Group: bakari brian
Diagnosis: intract migraines, hypoxia unclear hyperk
Reason for Telemetry: Arrhythmia
Date to Stop Telemetry: 10/03/24
Time to Stop Telemetry: 11:00
Reason for Hospitalization: intract migraines, hypoxia unclear hyperk
Expected length of stay greater than two midnights?: Yes
ELOS- Estimated Length of Stay in days: 3
I certify the patient meets the requirements for IP care: Yes
Code Status As Directed
Resuscitation Status: Full Code
09/30/24 20:27
Lorazepam [Ativan] 1 mg IV NOW STA
09/30/24 20:29
0.9% Sodium Chloride [Nss (Preservative Free)] 0.5 ml IV NOW STA
09/30/24 20:32
PRN Pain Medication Management As Directed
May give lesser potent ordered pain med per pt: Yes
preference::
Protocol:: Medication orders for pain may be administered in a
manner that supports deferring to patient preference
when the pt is:
- Requesting an ordered lesser potent pain medication.
Least to most potent pain medications are defined
as: acetaminophen < NSAID < tramadol < opioids
(morphine, oxycodone, hydromorphone).
- Requesting a lesser dose of the same medication IF
ORDERED.
- Requesting a less intrusive route of administration
if both routes are prescribed by the provider (PO <
IV).
09/30/24 21:00
Flush (0.9% Sodium Chloride) [Flush (Nss)] See Dose Instructions IV PER PROTOCOL
09/30/24 21:33
Potassium Urgent
Comment: draw 2 hours after regular insulin IV administration
10/01/24 06:00
Cortisol, Random IN AM
10/03/24 11:00
DC Protocol for Telemetry ONCE
Abnormal Lab Results
09/30/24 09/30/24
17:45 19:07
WBC 11.0 H 10^3/uL
(4.8-10.8)
RBC 3.20 L 10^6/uL
(4.20-5.40)
Hgb 9.3 L g/dL
(12.0-16.0)
Hct 30.4 L %
(37.0-47.0)
MCHC 30.6 L g/dL
(33.0-37.0)
MPV 11.5 H fL
(7.4-10.4)
Absolute Lymphs (auto) 3.8 H 10^3/uL
(1.2-3.4)
Absolute Monos (auto) 0.8 H 10^3/uL
(0.1-0.6)
Potassium 6.1 H* mmol/L
(3.5-5.1)
Carbon Dioxide 34 H mmol/L
(22-30)
BUN 20 H mg/dl
(7-17)
Glucose 102 H mg/dl
(70-99)
Ur Occult Blood Reflex 4+ A
(Negative)
Urine RBC 50-60 A /HPF
(0-2)
Urine Bacteria (Reflex) Few A
(Negative)
Urine Albumin (Reflex) 1+ A
(Neg - Trace)
POC Glucose 256 H mg/dl
(70-99)
09/30/24 17:45
09/30/24 17:45
Vital Signs
Initial and Last Documented VS:
Initial Vital Signs
Temp Pulse Resp BP Pulse Ox
98.4 F 105 20 122/75 93
09/30/24 14:34 09/30/24 14:34 09/30/24 14:34 09/30/24 14:34 09/30/24 14:34
Last Documented Vital Signs
Temp Pulse Resp BP Pulse Ox
98.4 F 85 15 99/61 58
09/30/24 14:34 09/30/24 21:00 09/30/24 21:00 09/30/24 21:00 09/30/24 20:30
MDM/Problems Addressed
Differential Diagnosis Includes:
HPI and MDM Narrative:
44-year-old female presenting for headache. Patient states that started yesterday. She has been taking her Nurtec with minimal to no relief. Patient states she has another migraine. Patient states when she gets this bad, she usually requires 2
mg of IV Dilaudid, IV Toradol and IV Reglan. She states she took Benadryl earlier today and declined IV Benadryl.
On my exam, she is well-appearing nontoxic. She is ambulating without difficulty. Pupils equal and reactive.
At first, I indicated that IV narcotics is not the mainstay treatment for migraine relief. However, patient states he is on chronic narcotics due to chronic back pain.
I will give a dose of Dilaudid and Toradol and Reglan and continue to reassess.
Physical exam
General: Well appearing and non-toxic
HEENT: protecting airway. Pupils equal reactive
Neck: appears supple
CV: No evidence of cyanosis
Resp: No accessory muscle use
Abd: Non-distended
Extremities: No deformities
Neuro: alert. Ambulating without difficulty
Psych: Normal affect
Skin: Intact
Problems Addressed including Acute and Chronic Conditions affecting care:
1. Migraine
Acuity: acute
Prognosis: stable
Details: Will provide pain medicine and continue to reassess
2. Hyperkalemia
Acuity: acute
Prognosis: unstable
Details: Will give dose of Lokelma and insulin and dextrose and admit
Updates
Patient found to be mildly anemic but states she is on her menstrual cycle which also explains hematuria
Given the hyperkalemia, will treat and admit
Differential Diagnosis (but not limited to): Migraine, tension headache
Testing considered: CT head but she has no focal neurodeficits
Drug therapy (if applicable): OTC meds, please see d/c instruction regarding Rx drugs
Amount and/or Complexity of Data Reviewed
Clinical info obtained from: Patient
External data reviewed: N/A
Labs I independently reviewed (but not limited to): Anemia, hyperkalemia
Radiology: N/A
Pulse Ox: not hypoxic
EKG independently reviewed: Sinus rhythm, normal axis, no
Wheel Inspector: Sinus rhythm
Critical Care: The high probability of a clinically significant, sudden or life threatening deterioration of the cardiovascular system(s) required my full and direct attention, intervention and personal management. The aggregate critical care time
was 33 minutes. This time is in addition to time spent performing reported procedures but includes the following:
[x] Data Review and interpretation
[x] Patient assessment and monitoring of vital signs
[x] Documentation
[x] Medication orders and management
Risk of Complication:
Social Determinants of health: Good social support
Discussed with other providers: N/A
Escalation of Care includes Admit/Obs: After being observed in the Emergency Department, pt stable for discharge.
Occasional wrong word or 'sound a like' substitutions may have occurred due to the inherent limitations of voice recognition software. Read the chart carefully and recognize, using context, where substitutions have occurred.
*Critical Care Note
Total Time (30-74mins, 75-104mins- exclusive of procedures): 33 min
comment:
The high probability of a clinically significant, sudden or life threatening deterioration of the cardiovascular system(s) required my full and direct attention, intervention and personal management. The aggregate critical care time was 33 minutes.
This time is in addition to time spent performing reported procedures but includes the following:
[x] Data Review and interpretation
[x] Patient assessment and monitoring of vital signs
[x] Documentation
[x] Medication orders and management
ED Attending Note
-
Portions of this chart may have been created with voice recognition software.� Occasional wrong word or��sound alike� substitutions may have occurred due to the inherent limitations of voice recognition software.
Discharge Plan
Departure
Patient Disposition: Admit
Date of Disposition: 09/30/24
Time of Disposition: 19:10
Admit to: Telemetry
Presentation/result/management discussed w/ accepting MD/DO: Hospitalist
Discharge Problem:
Acute intractable headache, Acute hyperkalemia
Interventions
Interventions:
*Risk Screen - Suicide Last Done: 09/30/24 14:34
*General Assessment Last Done: 09/30/24 14:34
*Neglect/Abuse Screening Last Done: 09/30/24 14:34
*ED- Fall Risk Assessment Last Done: 09/30/24 19:18
*ED COVID-19 Vaccine History Last Done: 09/30/24 14:34
ED- Neurological Assessment Last Done: 09/30/24 19:18
[2024-09-30] MEDS: REGLAN 10 MG IV (17:40)
[2024-09-30] MEDS: NSS 1000 IV (17:40)
[2024-09-30] MEDS: TORADOL 30 MG IV (17:41)
[2024-09-30] MEDS: DILAUDID 1 MG IV ×2 (17:43→18:58)
[2024-09-30 18:04] LABS: % Basophils 0.5 % (0-2); % Eosinophils 2.2 % (0-6); % Immature Granulocytes 0.3 % (0-0.5); % Lymphocytes 34.3 % (20.5-51.1); % Monocytes 7.4 % (1.7-9.3); % Neutrophils 55.3 % (42.2-75.2); Absolute Basophils 0.1 10^3/uL (0-0.2); Absolute Eosinophils 0.2 10^3/uL (0-0.7); Absolute Lymphocytes 3.8 10^3/uL (1.2-3.4); Absolute Monocytes 0.8 10^3/uL (0.1-0.6); Absolute Neutrophils 6.1 10^3/uL (1.4-6.5); Hematocrit 30.4 % (37.0-47.0); Hemoglobin 9.3 g/dL (12.0-16.0); Mean Corp Hgb Conc. 30.6 g/dL (33.0-37.0); Mean Corpuscular Hgb 29.1 pg (27.0-31.0); Mean Platelet Volume 11.5 fL (7.4-10.4); Nucleated Red Blood Cells % 0 %; Platelet Count 223 10^3/uL (130-400); Red Cell Dist. Width 14.2 % (11.5-14.5); Urine Albumin 1+ (Neg - Trace); Urine Bilirubin Negative (Negative); Urine Character Clear (Clear); Urine Color Yellow; Urine Glucose Negative (Negative); Urine Ketone Negative (Negative); Urine Leukocyte Negative (Negative); Urine Nitrite Negative (Negative); Urine Occult Blood 4+ (Negative); Urine Specific Gravity 1.025 (<1.030); Urine Urobilinogen Negative (Neg - 1+)
[2024-09-30 18:07] LABS: HCG, Urine Qualitative Screen Negative
[2024-09-30 18:12] LABS: ALT (SGPT) 19 U/L (0-35); AST (SGOT) 23 U/L (14-36); Albumin 3.8 g/dl (3.5-5.0); Alkaline Phosphatase 58 U/L (38-126); Blood Urea Nitrogen 20 mg/dl (7-17); Calcium 8.7 mg/dl (8.4-10.2); Carbon Dioxide 34 mmol/L (22-30); Chloride 104 mmol/L (98-107); Glucose 102 mg/dl (70-99); Potassium 6.1 mmol/L (3.5-5.1); Sodium 141 mmol/L (135-145); Total Bilirubin 0.4 mg/dl (0.2-1.3); Total Protein 6.8 g/dl (6.3-8.2); eGFR > 60.00
[2024-09-30 18:24] LABS: Urine Bacteria Few (Negative); Urine Red Blood Cell 50-60 /HPF (0-2); Urine Squamous Cell 26-30 /LPF (Few); Urine White Cell 0-2 /HPF (0-5)
[2024-09-30] MEDS: LOKELMA 10 GRAM PO (18:56)
[2024-09-30] MEDS: DEXTROSE 50% SYRINGE 25 GRAMS IV (19:04)
[2024-09-30 19:09] LABS: Glucose - Point of Care 256 mg/dl (70-99)
[2024-09-30] MEDS: NOVOLIN R 5 UNITS IV (19:09)
[2024-09-30 19:14] VITALS: BMI 41.7
[2024-09-30 19:16] VITALS: BP 95/56
--- NOTE | 2024-09-30 19:31 | HPS.HSE ---
Family Physician
-
Family Physician: Lowell Cooper
Chief Complaint
-
Headache x 24 hours, hypoxia in ER
History of Present Illness
44-year-old female states she has had history of migraines since age 17. She reports she started with a migraine yesterday and took her Nurtec ODT which typically helps but did not she took a second dose along with Motrin which did not help. She
reportedly started Emgality monthly in December 2023 when she was having episodes of headaches 3-4 times a month lasting a week at each time. The Emgality has decreased the migraines to once a month only lasting a few days with her migraine
medications breaking the headaches until today. Complains of a posterior headache to the left buddhism with light sensitivity and nausea. She currently rates it as an 8 out of 10 after multiple drug regimen in the ER and it was a 9 out of 10 on
presentation to the ER. She was noted to be hypoxic as low as 83% on room air as high as 92% she is awake she has class III obesity with BMI 41. She admits to being diagnosed with sleep apnea but refused any machine because she likes to sleep on
her stomach she is not willing to try anything that will interfere with that. She was made aware that hypoxia can cause headaches, strokes, heart attacks if she does not address underlying hypoxia with oxygen intervention. She was made aware we
will check a venous blood gas to properly evaluate her oxygen and carbon dioxide levels. She denies recent travel, prolonged car rides, fever, chills, neck pain, sore throat, chest pain, palpitations, cough, shortness of breath, abdominal pain,
vomiting, diarrhea, urinary symptoms. She reports history of hyperkalemia x 1 in June 2024 at [facility] treated with single dose medication but never followed up. Her potassium was noted to be 6.1 here in the ER she also reports she
resumed her Coreg to 25 mg twice daily for underlying tachycardia when she was recommended and given inpatient 3.125 mg twice daily she states her blood pressure has been stable at systolic 110 at home however is 95/56 here in the ER. Her
hemoglobin is 9.3 on current menses
She has past medical history anemia of chronic disease, blood loss anemia, iron deficiency anemia, B12 deficiency, left kidney abscess from UTI status post nephrostomy tube placement June 2024 with removal July 2024 mild BELEM, DM2, chronic lower
back pain on chronic oral opiates, constipation due to chronic oral opiates, endometriosis, asthma, sinus tachycardia, cholelithiasis s/p cholecystectomy, hypotension, anxiety, depression, class III obesity�BMI 41.6, sleep apnea does not use any
machine as she sleeps on her stomach and does not want to interfere
Medical History
Past Medical History
Past Medical History: Reports Other
Additional Past Medical History:
anemia of chronic disease
blood loss anemia
iron deficiency anemia,
B12 deficiency
left kidney abscess from UTI status post nephrostomy tube placement June 2024 with removal July 2024
DM2
Fibromyalgia
chronic lower back pain on chronic oral opiates
constipation due to chronic oral opiates
endometriosis
asthma
sinus tachycardia
cholelithiasis s/p cholecystectomy
hypotension
anxiety
depression
class III obesity�BMI 41.6
sleep apnea does not use any machine as she sleeps on her stomach and does not want to interfere
Past Surgical History: Reports Other
Additional Past Surgical History:
left kidney abscess from UTI status post nephrostomy tube placement June 2024 with removal July 2024
cholelithiasis s/p cholecystectomy
Social History
Tobacco: Non-smoker
Alcohol: None
Drug: None
Personal: Single
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
Family History
Family History: Other (Mother, maternal aunts, maternal grandfather, nephew all history migraines)
Allergies / Home Medications
Allergies reflects when Allergies were last updated in [facility].
Home Medications with original date entered in [facility]
Allergy/Medication List:
Allergies
Allergy/AdvReac Type Severity Reaction Status Date / Time
Sulfa (Sulfonamide Allergy HIVES, SOB Verified 09/30/24 14:34
Antibiotics)
bee stings Allergy severe Uncoded 09/30/24 14:34
swelling
Home Medications
carisoprodol 350 mg tablet (Soma) 350 mg PO BIDPRN PRN back pain 07/02/09
medroxyprogesterone 150 mg/mL intramuscular suspension 150 mg IM [id number] Hormonal Agent ##0 07/02/09
atorvastatin 10 mg tablet 10 mg PO DAILY High Cholesterol 09/03/20
carvedilol 25 mg tablet (Coreg) 25 mg PO BID Heart Disease/Condition 09/03/20
duloxetine 60 mg capsule,delayed release 90 mg PO DAILY Mental Health/Anxiety 09/03/20
fluticasone propionate 50 mcg/actuation nasal spray,suspension 2 spray intranasal DAILY Allergies 09/03/20
metformin 500 mg tablet 500 mg PO BID Diabetes 09/03/20
ferrous sulfate 27 mg iron tablet 27 mg PO TUTH Supplement 07/29/24
magnesium 200 mg tablet 200 mg PO QPM Supplement 07/29/24
morphine 15 mg immediate release tablet 15 mg PO Q4HPRN PRN severe pain 07/29/24
pregabalin 200 mg capsule 200 mg PO TID Mental Health/Anxiety 07/29/24
sertraline 25 mg tablet (Zoloft) 25 mg PO HS Mental Health/Anxiety 07/29/24
rimegepant 75 mg disintegrating tablet (Nurtec ODT) 75 mg PO DAILYPRN PRN migraines 07/31/24
cyanocobalamin (vitamin B-12) 1,000 mcg tablet (Vitamin B-12) 1,000 mcg PO DAILY 30 days #30 tabs 08/04/24
calcium carbonate 500 mg PO DAILY 09/30/24
cholecalciferol (vitamin D3) 25 mcg (1,000 unit) tablet (Vitamin D3) 75 mcg PO DAILY 09/30/24
ergocalciferol (vitamin D2) 1,250 mcg (50,000 unit) capsule 1,250 mcg PO WE 09/30/24
galcanezumab-gnlm 120 mg/mL subcutaneous syringe (Emgality) 120 mg SC QMONTH 09/30/24
ibuprofen 600 mg tablet 600 mg PO BIDPRN PRN mild pain 09/30/24
ibuprofen 600 mg tablet (IBU) 600 mg PO BID 09/30/24
zinc sulfate 50 mg zinc (220 mg) tablet 50 mg PO QPM 09/30/24
Review of Systems
-
History Source: Patient
A 12 point ROS was completed and negative except as noted: Yes
Constitutional: Denies Fever or Chills
EENT: Reports Other (Photosensitivity); Denies Sore Throat, Mouth Pain or Runny Nose
Respiratory: Denies Cough or Trouble Breathing
Cardiac: Denies Chest Pain, Diaphoresis, Palpitations or Syncope
Abdomen/GI: Reports Nausea; Denies Abdominal Pain, Vomiting, Diarrhea, Constipated, Bloody Stools or Black Stools
: Denies Dysuria, Frequency, Flank Pain, Incontinence or Difficulty Voiding
Musculoskeletal: Denies Joint Pain or Edema
Skin: Denies Itching or Rash
Neurological: Reports Headache (Posterior and left buddhism); Denies Dizzy or Weakness
Endocrine: Reports No Symptoms
Hematologic/Lymphatic: Reports No Symptoms
Psych: Reports Calm
Physical Exam
Vital Signs
Vital Signs
Temp Pulse Resp BP Pulse Ox
98.4 F 105 20 122/75 93
09/30/24 14:34 09/30/24 14:34 09/30/24 14:34 09/30/24 14:34 09/30/24 14:34
Physical Exam
General: Comfortable, Conversant, Pain (Comfortable but reports headache 8 out of 10) and Morbidly Obese; No Fever or Chills
HEENT: NormoCephalic, Anicteric, PERRLA, [place] Conjunctivae, No Ptosis and Neck Nontender
Respiratory: Clear; No Wheezes, Rales or Rhonchi
Cardiac: S1/S2 and Regular Rhythm; No Murmur, Rub, Gallop or Peripheral Edema
Breast: Deferred by me
GI: Soft, Non Tender, Non Distended, Normal Bowel Sounds and No Hepatosplenomegaly
Rectal: Deferred by Provider
Genito-urinary: Deferred by me
Musculoskeletal: No Clubbing, No Cyanosis and No Edema
Skin: Warm and Dry; No Rash or Jaundice
Neuro: AO x 3, No Motor Deficits, Nonfocal/grossly intact, Cranial Nerves Intact and No Sensory Deficits; No Slurred Speech, Facial Droop, Tremors or Sedated
Psych: Calm
Laboratory Results
-
09/30/24 17:45
Laboratory Results
Total Bilirubin 0.4 mg/dl (0.2-1.3) 09/30/24 17:45
AST 23 U/L (14-36) 09/30/24 17:45
ALT 19 U/L (0-35) 09/30/24 17:45
Alkaline Phosphatase 58 U/L (38-126) 09/30/24 17:45
Impression/Plan
-
Impression/plan:
Admit to telemetry
#Acute on chronic migraine exacerbation possibly secondary to hypoxia
#History of migraines since age of 17 history of lidocaine/steroid injections greater than 15 years ago
-Treated with Toradol, Reglan, Dilaudid,
- IV NSS 1 L
-Consult neurology
-Patient on Emgality 120 mg subcu monthly last received on 09/19/2024
-On Nurtec ODT 75 mg daily as needed
- Patient advised not to take Motrin due to her anemia
- Check VBG due to pulse ox 83% - 92% on room air with normal Pleth wave
#Acute hyperkalemia
K6.1
Patient given Lokelma and IV insulin and D50
-IV NSS 1 L
- Repeat potassium 6 hours due at 0000
- Follow BMP
- hold motrin
#Anemia of chronic disease
#Blood loss anemia 08/04/2024
#Iron deficiency anemia 08/04/2024
#Mild B12 deficiency
- Patient status post 4 units PRBC, IV iron, p.o. B12 supplementation
- Had evaluation by hematology and GI with EGD and colonoscopy no source of bleeding July 2024
-She had IV iron supplementation during July visit
- Hgb 9.3(on current menses) was 11.8 on 08/24/2024 however was as low as 5.8 on 07/31/2024
- Continue ferrous sulfate 65 mg p.o. Tuesdays, B12 1000 mcg p.o. daily,
# History of left kidney abscess status post nephrostomy tube placement June 2024 emetine, removal July 2024 [facility]
- Acute on chronic leukocytosis�improving
WBC 11<12.4 on 08/24/2024
-Had negative blood cultures on recent admission did receive empiric cefepime/Rocephin
- July 2024 CT abdomen pelvis shows left percutaneous nephrostomy tube with surrounding inflammatory change, mild left pelvocalicectasis without nba
hydronephrosis. No abscess was noted. Renal abscess seems to have resolved?
#Hx mild hypotension/HTN
BP 95/56 -history of hypotension with BP as low as 87/59 during recent admission her Coreg was decreased to Coreg 3.125 mg twice daily in July however increased back to 25 mg twice daily 1 week after on her own she states
-Hold her carvedilol 25 mg twice daily due to hypotension
#Type 2 diabetes
-Hold metformin
- Accu-Cheks with SSI low
- Hgb 6on 07/30/2024
#Chronic lower back pain on chronic oral opiates
# Chronic fibromyalgia
-Continue morphine 15 mg every 4 as needed severe pain, duloxetine 90 mg daily, pregabalin 200 mg p.o. 3 times daily
- Patient taking ibuprofen 600 mg p.o. twice daily and 600 mg p.o. twice daily as needed mild pain
- Continue Soma 350 mg p.o. twice daily as needed back pain
- Patient follows with Dr. Cisneros at [facility] pain management [place] office
#Constipation due to opiates use
-bowel regimen
#Mild asthma-no acute exacerbation
#History of sinus tachycardia
-Continue Coreg but will reduce dose to 3.125mg BID as with soft BP.
Carvedilol 25 mg p.o. twice daily
#HLD
Continue atorvastatin 10 mg daily
#Anxiety/depression
-Continue sertraline 25 mg at bedtime, Ativan
#Class III obesity�BMI 41.6
Affects all aspects of medical care
- Recommend weight loss
Other PMH:
Endometriosis history-patient on Depo-Provera 150 mg IM every 3 months
History of cholelithiasis status post cholecystectomy
Full code
DVT prophylaxis�scds in setting of suspected GI bleed
--- NOTE | 2024-09-30 19:52 | W.PN.UPDATE ---
Addendum entered and electronically signed by Gurjit Iqbal MD 10/01/24 12:06:
Random cortisol and AM cortisol was ordered last night for part the w/u of deferential etiology of hyperkalemia like primary adrenal insufficiency ?
Addendum entered and electronically signed by Gurjit Iqbal MD 09/30/24 22:59:
Laboratory Tests
09/30/24
21:33
VBG pH 7.30 L
VBG pCO2 68 H
VBG pO2 56 H
VBG HCO3 33.5 H
Acute uncompensated Resp acidosis complicated by hyperkalemia
Hypercapnic hypoxic RF
- suspect Obesity hypoventilation and functions of VOLLEYBALL COMMENTATOR suppressant Meds
- Pul consult
- Empiric Bi PAP
Original Note:
Update Note
Progress Note Update
This note serves as an addendum to the H&P by coffee grinder KRISTINE Kylee MISTRY
HPI
44F Non smoker, Morbid Obesity( BMI 41-42) chr LBP, migraines, HX UTI, Lt Renal abscess s/p PCN placement and removal, anemia, chronic opioid dependent on daily basis, history of migraines, endometriosis, mild asthma, history of recent left kidney
abscess status post nephrostomy tube seen at ER:
- complaining of migraine since yesterday.
- K i 6.1 on admission - ER gave s/p D50 + Regular Insulin 5 units + Na Zirconium PO 10gm
- HX mild hyperkalemia
Vital Signs
Temp Pulse Resp BP Pulse Ox
98.4 F 105 chronic 20 122/75 93
09/30/24 14:34 09/30/24 14:34 09/30/24 14:34 09/30/24 14:34 09/30/24 14:34
PE
Gen: Morbidly obese. Not toxic. Appropriate
HEENT: wearing dark sun glasses
Neck: supple
Lungs: CTA
Cor: RRR S1 S2
Abdomen: obese
VOLLEYBALL COMMENTATOR: AAO3 symmetric movement all extremities
MS:no edema
Psych: normal mood and affect
Laboratory Tests
08/04/24 08/24/24 09/30/24
11:47 16:05 17:45
WBC 12.4 H 11.0 H
Hgb 11.8 L 9.3 L
Sodium 141
Potassium 4.8 6.1 H*
Carbon Dioxide 34 H
BUN 20 H
Creatinine 1.0
eGFR > 60.00
POC Glucose 184 H 256 s/p D50
Last hospitalist admission: 07/29/24 - 08/04/24
Discharge Diagnosis/Procedures:
Anemia s/p blood transfusion and EGD/Colonoscopy
Left PCN tube removal
fever and chills
Acute kidney injury
Severe constipation
ASSESSMENT & PLAN
ECONOMICS LECTURER [facility] of VOLLEYBALL COMMENTATOR Meds for Migraine, chr LBP and anxiety and depression noted
Recurrent Migraine flare up ? Nocturnal hypoxia due to untreatyed PAN
- on ECONOMICS LECTURER Nurtec ODT 75 mg PO PRN
- on ECONOMICS LECTURER galcanezumab- gnlm 120 mg SC Q month
- Neuro consult
Opiate dependent on daily basis chronic lower back pain flare of unclear precipitant
- f/u at [facility] pain management at [place]
- s/p IV Dilaudid 1 mg + 1mg . IV Toradol 30mg at ER
- c/w ECONOMICS LECTURER morphine 15 mg PO Q4H PRN
- c/w ECONOMICS LECTURER pregabalin 200 mg PO TID
- c/w duloxetine 90 mg daily
- c/w carisoprodol [Soma] qid PRN
Hyperkalemia unclear etiology
- s/p D50 + Regular Insulin 5 units + Na Zirconium PO 10gm
- Repeat K at [place]
Interment hypoxia ( Range of POx 84 - 92 )
Intermittent Hypoxia +NS suppressant Meds ( Narcotic , Lyrica)
Alert and stable wakefulness on my exam
Prior HX POS sleep study for PAN
Tummy sleeper
- recommended CPAP but she declined due to tummy sleeper
- VBG to screen for chr CO2 retention and chr Resp acidosis due Obesity hypoventilation although low clinical suspicion
Anxiety/depression
- She is no longer on lorazepam PRN that was DC med list as of 08/04/24
- on sertraline 25 mg PO HS
HX chronic sinus tachycardia
- cont. Coreg
New interval worsening chronic Chronic normocytic anemia unclear etiology
Mild B12 deficiency
08/01/24 EGD: normal esophagus, erythematous mucosa. normal duodenum s/p biopsy.
08/03/24 colonoscopy : examined portion of ileum and entire colon was normal. Status post for polyp removal.
- Hgb 9.3 today , Hgb was 11.8 on 08/24/24 seems to be not too far from her baseline
- B12 supplementation
T2DM
- Hold metformin
- add ISS
Morbid Obesity( BMI 41-42)
- due to excess calories
- Affects all aspects of medical care
DVT Px: LMWH
Full code
IP TLM
[2024-09-30 20:00] VITALS: BP 111/60
[2024-09-30 21:00] VITALS: BP 99/61
[2024-09-30] MEDS: ATIVAN 1 MG IV (21:05)
[2024-09-30] MEDS: NSS (PRESERVATIVE FREE) 0.5 ML IV (21:06)
[2024-09-30 21:12] LABS: Glucose - Point of Care 133 mg/dl (70-99)
[2024-09-30] MEDS: FLUSH (NSS) 1 FLUSH IV (21:13)
[2024-09-30 21:39] LABS: Venous Blood Gas B.E. 5.9 mmol/L (-4 to +4); Venous Blood Gas HCO3 33.5 mmol/L (22-27); Venous Blood Gas O2 Sat % 89.7 %; Venous Blood Gas pCO2 68 mmHg (35-48); Venous Blood Gas pO2 56 mmHg (30-50)
[2024-09-30 21:50] LABS: Potassium 4.8 mmol/L (3.5-5.1)
[2024-09-30 23:26] VITALS: BP 98/63; BMI 41.1
[2024-09-30] MEDS: ZOLOFT 25 MG PO (23:30)
[2024-09-30 23:45] VITALS: PULSE 2; PULSE 83
[2024-09-30 23:52] LABS: Glucose - Point of Care 144 mg/dl (70-99)
[2024-10-01] VITALS (7 sets, daily range): BP systolic 100–143; BP diastolic 60–81; PULSE 2
[2024-10-01 02:16] LABS: Glucose - Point of Care 93 mg/dl (70-99)
[2024-10-01] MEDS: MORPHINE SULFATE 15 MG PO ×5 (02:38→21:06)
[2024-10-01 05:18] LABS: Venous Blood Gas B.E. 6.5 mmol/L (-4 to +4); Venous Blood Gas HCO3 33.4 mmol/L (22-27); Venous Blood Gas O2 Sat % 99.4 %; Venous Blood Gas pCO2 62 mmHg (35-48); Venous Blood Gas pH 7.34 (7.32-7.43); Venous Blood Gas pO2 148 mmHg (30-50)
[2024-10-01 05:29] LABS: % Basophils 0.5 % (0-2); % Eosinophils 1.9 % (0-6); % Immature Granulocytes 0.3 % (0-0.5); % Lymphocytes 30.6 % (20.5-51.1); % Monocytes 7.4 % (1.7-9.3); % Neutrophils 59.3 % (42.2-75.2); Absolute Basophils 0.1 10^3/uL (0-0.2); Absolute Eosinophils 0.2 10^3/uL (0-0.7); Absolute Lymphocytes 3.1 10^3/uL (1.2-3.4); Absolute Monocytes 0.8 10^3/uL (0.1-0.6); Hematocrit 26.3 % (37.0-47.0); Hemoglobin 8.2 g/dL (12.0-16.0); Mean Corp Hgb Conc. 31.2 g/dL (33.0-37.0); Mean Corpuscular Hgb 29.6 pg (27.0-31.0); Mean Corpuscular Volume 94.9 fL (81.0-99.0); Mean Platelet Volume 11.1 fL (7.4-10.4); Nucleated Red Blood Cells % 0 %; Platelet Count 183 10^3/uL (130-400); Red Blood Cell Count 2.77 10^6/uL (4.20-5.40); Red Cell Dist. Width 14.2 % (11.5-14.5); White Blood Cell Count 10.1 10^3/uL (4.8-10.8)
[2024-10-01 05:47] LABS: ALT (SGPT) 16 U/L (0-35); AST (SGOT) 17 U/L (14-36); Albumin 3.1 g/dl (3.5-5.0); Alkaline Phosphatase 55 U/L (38-126); Blood Urea Nitrogen 16 mg/dl (7-17); Calcium 8.2 mg/dl (8.4-10.2); Carbon Dioxide 36 mmol/L (22-30); Chloride 105 mmol/L (98-107); Estimated Creatinine Clearance 103 ml/min; Glucose 157 mg/dl (70-99); Potassium 4.9 mmol/L (3.5-5.1); Sodium 141 mmol/L (135-145); Total Bilirubin 0.2 mg/dl (0.2-1.3); Total Protein 5.5 g/dl (6.3-8.2); eGFR > 60.00
[2024-10-01 06:18] LABS: Cortisol, Random 0.4 ug/dl
--- NOTE | 2024-10-01 07:19 | W.PN.HOSP.TC ---
Addendum entered and electronically signed by Millie Herrera MD 10/01/24 14:55:
I saw and evaluated the patient independently. I reviewed the resident�s note and agree with findings and plan as documented by Dr. Angelo.
GENERAL: well developed, well nourished, morbidly obese female in no apparent distress
HEENT: NC/AT
HEART: regular rate and rhythm, +S1, +S2
LUNGS : clear to auscultation bilaterally
ABDOM: soft, nontender, nondistended, + bowel sounds
EXT: no cyanosis, clubbing, or edema
NEUROLOGIC: grossly intact
Migraine attack -- likely exacerbated by multiple factors--usually well controlled on Nurtec ODT and Emgality--valproic acid started by neuro, apprec input--planning for nerve block Monday 10/02 after cosyntropin stim test--correcting underlying
factors may improve her migraines--apprec neuro
periods of Hypoxia--History of obstructive sleep apnea--patient is not compliant with treatment recommendations--not using CPAP or BiPAP--likely secondary to obesity hypoventilation condition--likely chronic resp acidosis with chronic elevation of
serum bicarbonate--apprec pulm--will add nocturnal pulse ox overnight--opioid use for migraines contributing
Chronic back pain--chronic dependency on opioids--f/u at [facility] pain management at [place]- Continue her medication including QUALITY CONTROL HEAD morphine 15 mg PO Q4H PRN for severe pain- Continue pregabalin 200 mg PO TID- Continue duloxetine 90 mg
daily--Continue carisoprodol [Soma] qid PRN
Hyperkalemia unclear etiology--with low cortisol, adrenal insufficiency possible--after ED treatment, now back to normal limits- Cortisol level 0.4 - Ordered ACTH stimulation test, TSH, T4, LH and FSH
Anxiety/depression- Not longer on lorazepam /discontinued in July - Continue sertraline 25 mg PO HS
HX chronic sinus tachycardia- Continue carvedilol
Chronic normocytic anemia -Hemoglobin is likely at her baseline-No signs of active bleeding-Continue vitamin B12-EGD and colonoscopy copy in July 2024: Not remarkable for GI bloating
T2DM - Hold metformin- ISS
Morbid Obesity( BMI 41-42)- Due to excess calories- Affects all aspects of medical care
DVT Proph-- LMWH
code status--Full code
Original Note:
Today's Communication/Plan
-
- ACTH stimulation test tomorrow morning
- TCH, T4, FSH and LH ordered
- Started valproic acid IV 500 mg Q6 by neurology
- Planning SPG block tomorrow after ACTH stimulation test completed
-Nocturnal pulse oximetry test ordered to assess the severity of PAN
Assessment / Plan
Assessment / Plan
# Migraine attack likely exacerbated by multiple factors
-History of migraine since age of 17
-Continue to QUALITY CONTROL HEAD Nurtec ODT 75 mg PO PRN
-Continue QUALITY CONTROL HEAD galcanezumab- gnlm 120 mg SC Q month
- Neuro consulted: Planning to do injection:sphenopalatine nerve block with local anesthetic-neurologist is planning to do this nerve block after patient received ACTH stimulation test(this injection included steroids may affect the test results)
-Neurology started valproic acid
# Hypoxia
-History of obstructive sleep apnea-patient is not compliant with treatment recommendations-not using CPAP or BiPAP
-Probably secondary to obesity hypoventilation condition
- Last VBG is not reliable as much as ABG suggesting compensated respiratory acidosis/likely with chronic problem given elevated HCO3
- Pulmonology on board
- Ordered nocturnal pulse oximetry test
- Her chronic opioid and pregabalin use may be contributing
-Try to avoid opioids medication given her respiratory problems
# Chronic back pain
- Patient is on opioids on daily basis
- f/u at [facility] pain management at [place]
- Continue her medication including QUALITY CONTROL HEAD morphine 15 mg PO Q4H PRN for severe pain
- Continue pregabalin 200 mg PO TID
- Continue duloxetine 90 mg daily
- Continue carisoprodol [Soma] qid PRN
#Hyperkalemia unclear etiology
- Resolved following given insulin and D5 at ER admission
- Cortisol level low: 0.4
- Ordered ACTH stimulation test, TSH, T4, LH and FSH
#Anxiety/depression
- Not longer on lorazepam /discontinued in July
- Continue sertraline 25 mg PO HS
#HX chronic sinus tachycardia
- Continue carvedilol
# Chronic normocytic anemia
-Hemoglobin is likely at her baseline
-No signs of active bleeding
-Continue vitamin B12
-EGD and colonoscopy copy in July 2024: Not remarkable for GI bloating
#T2DM
- Hold metformin
- ISS
#Morbid Obesity( BMI 41-42)
- Due to excess calories
- Affects all aspects of medical care
DVT Px: LMWH
Full code
Anticipated Discharge: 24 - 48 hours
Subjective/Interval History
-
Date of Service: October 01, 2024
Patient reports still having severe headache. She rated her headache 8/10. Denies any muscle weakness or numbness or vision deficits.
Objective Data
-
Labs:
Laboratory Results
09/30/24 10/01/24
21:33 05:09
WBC 10.1
Hgb 8.2 L
Hct 26.3 L
Plt Count 183
Sodium 141
Potassium 4.8 4.9
Chloride 105
Carbon Dioxide 36 H
BUN 16
Creatinine 0.9
Glucose 157 H
Calcium 8.2 L
Total Bilirubin 0.2
AST 17
ALT 16
Alkaline Phosphatase 55
Vital Signs:
Vital Signs
Temp Pulse Resp BP Pulse Ox
97.9 F 92 19 100/73 98
10/01/24 03:23 10/01/24 03:23 10/01/24 03:23 10/01/24 03:23 10/01/24 03:23
I&O
09/30/24 10/01/24 10/02/24
06:59 06:59 06:59
Intake Total 450 / 450
Balance 450 / 450
Review of Systems
-
History Source: Patient
Constitutional: Reports No Symptoms and Other (Headache)
EENT: Reports Other
Physical Exam
-
General: Well Developed, Well Nourished and Morbidly Obese
HEENT: Normocephalic and Atraumatic
Respiratory: Clear to Auscultation
Cardiac: Regular Rhythm and S1/S2
GI: Soft, Nontender and Nondistended
Musculoskeletal: No Clubbing, No Cyanosis and No Edema
Skin: Warm
Neuro: Awake, Alert, Oriented, AO x 3 and Nonfocal/Grossly Intact
[2024-10-01 07:20] LABS: Glucose - Point of Care 112 mg/dl (70-99)
[2024-10-01] MEDS: LIPITOR 10 MG PO (08:43)
[2024-10-01] MEDS: VITAMIN B-12 1000 MCG PO (08:43)
[2024-10-01] MEDS: OSCAL CAL 500 500 MG PO (08:43)
[2024-10-01] MEDS: VITAMIN D3 (cholecalciferol) 75 MCG PO (08:44)
[2024-10-01] MEDS: CYMBALTA DELAYED RELEASE 90 MG PO (08:44)
[2024-10-01] MEDS: LYRICA 200 MG PO ×3 (08:45→21:01)
[2024-10-01] MEDS: METHOCARBAMOL 750 MG PO (11:22)
[2024-10-01 12:14] LABS: Glucose - Point of Care 104 mg/dl (70-99)
[2024-10-01 12:25] LABS: Glycohemoglobin (HgbA1c) 7.1 % (4.0-5.6)
--- NOTE | 2024-10-01 12:36 | CM ---
Initial assessment completed with patient who lives alone in a 2nd floor apartment with 18 steps to enter 2nd floor, no steps to enter building. OPERATIONS PROGRAM MANAGER was independent in ADL's and ambulation, drove, no services in the home., Has a nebulizer machine
and no other DME. No HC-POA, no service. Support system is parents and nephew. PCP is Dr. Lowell Cooper Jr. and Pharmacy is [facility] in [place]. Discharge POC: Anticipate home with no needs.
[2024-10-01] MEDS: DEPACON 55 MG IV ×3 (12:43→23:52)
--- NOTE | 2024-10-01 14:13 | CON.PUL ---
Consultation
Consultation Request
Date/Time Consultation Requested: 10/01/2024
Date/Time Consultation Performed: 10/01/2024
Requesting Provider: Gurjit Iqbal
Performing Provider: Oswaldo Nieves
Reason for Consultation: PAN/Hypercapnia
Medical History
-
Chief Complaint: Headache
History of Present Illness:
Patient is a 44 y/o female who presented to the hospital with headache, thought to be related to her known h/o migraine headaches. Patient was noted to be hypoxic which improved with supplemental O2. She was subsequently weaned to room air, and
saturations have stayed normal. VBG was performed which showed hyeprcapnia, 7.3/68, and 4 hrs follows up VBG was 7.34/62. She was placed on BIPAP, 04/13. By the time of my evaluation, she was on room air, off BIPAP. Patient reports h/o sleep study in
2020, suggestive of mild PAN (details not available). Patient reports that her weight has fluctuated since 2020. She has not been on CPAP or BIPAP at home. Not on any supplemental O2 either. No reported pleuritic pain today, no hemoptysis etc.
Patient has CTPE study performed last month which was negative for PE, with normal pulmonary parenchyma. Pulmonary consult was requested for further input.
Reported h/o exercise induced asthma in teen years, managed with PRN Albuterol. Has not u sed Albuterol in many years.
Past Medical History: Reports Other
Additional Past Medical History:
anemia of chronic disease
blood loss anemia
iron deficiency anemia,
B12 deficiency
left kidney abscess from UTI status post nephrostomy tube placement June 2024 with removal July 2024
DM2
Fibromyalgia
chronic lower back pain on chronic oral opiates
constipation due to chronic oral opiates
endometriosis
asthma, exercise induced
sinus tachycardia
cholelithiasis s/p cholecystectomy
hypotension
anxiety
depression
class III obesity�BMI 41.6
sleep apnea does not use any machine as she sleeps on her stomach and does not want to interfere
Past Surgical History: Reports Other
Additional Past Surgical History:
left kidney abscess from UTI status post nephrostomy tube placement June 2024 with removal July 2024
cholelithiasis s/p cholecystectomy
Social History
Tobacco: Non-smoker
Alcohol: None
Drug: None
Personal: Single
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
Family History
Family History: Other (Mother, maternal aunts, maternal grandfather, nephew all history migraines)
Allergies / Home Medications
Allergies
Allergy/AdvReac Type Severity Reaction Status Date / Time
Sulfa (Sulfonamide Allergy HIVES, SOB Verified 09/30/24 14:34
Antibiotics)
bee stings Allergy severe Uncoded 09/30/24 14:34
swelling
Home Medications
�Medication �Instructions �Recorded �Confirmed �Last Taken �Type
carisoprodol 350 mg tablet (Soma) 350 mg PO BIDPRN PRN back pain 07/02/09 09/30/24 09/30/24 History
medroxyprogesterone 150 mg/mL 150 mg IM [id number] Hormonal Agent 07/02/09 09/30/24 06/02/09 History
intramuscular suspension ##0
atorvastatin 10 mg tablet 10 mg PO DAILY High Cholesterol 09/03/20 09/30/24 09/30/24 History
carvedilol 25 mg tablet (Coreg) 25 mg PO BID Heart 09/03/20 09/30/24 09/30/24 History
Disease/Condition
duloxetine 60 mg capsule,delayed 90 mg PO DAILY Mental 09/03/20 09/30/24 09/30/24 History
release Health/Anxiety
fluticasone propionate 50 2 spray intranasal DAILY Allergies 09/03/20 09/30/24 09/29/24 History
mcg/actuation nasal
spray,suspension
metformin 500 mg tablet 500 mg PO BID Diabetes 09/03/20 09/30/24 09/30/24 History
ferrous sulfate 27 mg iron tablet 27 mg PO TUTH Supplement 07/29/24 09/30/24 09/28/24 History
magnesium 200 mg tablet 200 mg PO QPM Supplement 07/29/24 09/30/24 09/29/24 History
morphine 15 mg immediate release 15 mg PO Q4HPRN PRN severe pain 07/29/24 09/30/24 09/30/24 History
tablet
pregabalin 200 mg capsule 200 mg PO TID Mental Health/Anxiety 07/29/24 09/30/24 09/30/24 History
sertraline 25 mg tablet (Zoloft) 25 mg PO HS Mental Health/Anxiety 07/29/24 09/30/24 09/29/24 History
rimegepant 75 mg disintegrating 75 mg PO DAILYPRN PRN migraines 07/31/24 09/30/24 09/30/24 History
tablet (Nurtec ODT)
cyanocobalamin (vitamin B-12) 1,000 mcg PO DAILY 30 days #30 tabs 08/04/24 09/30/24 09/30/24 Rx
1,000 mcg tablet (Vitamin B-12)
calcium carbonate 500 mg PO DAILY 09/30/24 09/30/24 09/30/24 History
cholecalciferol (vitamin D3) 25 75 mcg PO DAILY 09/30/24 09/30/24 09/30/24 History
mcg (1,000 unit) tablet (Vitamin
D3)
ergocalciferol (vitamin D2) 1,250 1,250 mcg PO WE 09/30/24 09/30/24 09/27/24 History
mcg (50,000 unit) capsule
galcanezumab-gnlm 120 mg/mL 120 mg SC QMONTH 09/30/24 09/30/24 09/19/24 History
subcutaneous syringe (Emgality)
ibuprofen 600 mg tablet 600 mg PO BIDPRN PRN mild pain 09/30/24 09/30/24 Unknown History
ibuprofen 600 mg tablet (IBU) 600 mg PO BID 09/30/24 09/30/24 09/30/24 History
zinc sulfate 50 mg zinc (220 mg) 50 mg PO QPM 09/30/24 09/30/24 09/29/24 History
tablet
Review of Systems
-
Constitutional: Other (Reported history of snoring as well as taking daytime naps. Occasional morning headaches. Reports that she does not feel refreshed when she wakes up in the morning. Tends to fall asleep watching TV or when in a moving
vehicle as a passenger.)
Respiratory: No Symptoms and Other (No cough, pleuritic discomfort, expectoration or hemoptysis. No orthopnea, PND or dyspnea on exertion reported.)
Vitals / Labs / Diagnostic Testing
Vital Signs
Temp Pulse Resp BP Pulse Ox
98.5 F 88 18 118/75 93
10/01/24 11:07 10/01/24 11:07 10/01/24 11:07 10/01/24 11:07 10/01/24 11:07
Lab Data
10/01/24 05:09
10/01/24 05:09
Diagnostic Testing:
Assessment
-
#1. Hypoxic and hypercapnic respiratory failure, suspect chronic (?PAN/OHS)
- Patient has normal pH of 7.34 with elevated pCO2 of 62. Bicarb is also elevated on blood gas, suggestive of chronicity.
- Patient is awake, alert, oriented x 3
- During my evaluation, oxygen saturation was 89 to 90%, once patient took a few deep breaths it immediately climbed into 94% on room air. No pleuritic chest pain. CT-PE last visit was unremarkable. Patient tends to be hypoxic when hypoventilates.
Add incentive spirometry. Sit in chair as able, increase activity as tolerated.
- BMI noted to be 41.1. Reported abnormal sleep study few years ago suggestive of sleep apnea
- Suspect patient has underlying sleep disordered breathing and likely obesity hypoventilation also with chronic hypercapnia, which is likely exacerbated by opiates that she takes chronically for migraine headache
- Patient needs a formal sleep study as well as pulmonary function testing and 6-minute walk test as outpatient, will arrange follow-up with pulmonary clinic
- Recommend checking overnight oximetry on room air to see if patient has significant desaturation, might need home oxygen. Check ABG in AM.
- Ideally patient should avoid all narcotics and other sedating medication which can increase risk of central sleep apnea in addition to her suspected obstructive sleep apnea
- If patient develops any mental status changes, recommend initiating noninvasive positive pressure ventilation and checking arterial blood gas
#2. H/o Exercise-induced asthma.
- Patient reports she was diagnosed with exercise-induced asthma in her teen years
- Historically managed with as needed albuterol, patient reports last albuterol use was many years ago without any recent exacerbation
- Will pursue pulmonary function testing as outpatient.
Other medical diagnoses:
- Chronic migraine headaches
- Anemia, chronic
- Fibromyalgia
- Chronic pain, chronic prescription opioid use
- Class III obesity, BMI > 41
- DM
DVT prophylaxis with subcu Lovenox. Particularly important considering patient is on Depo shots for contraception.
Total time spent on this consultation/encounter __61__ minutes which includes review of history, physical exam, medications, laboratory data, personal review of imaging, extensive review of outpatient records, discussion with care team and
respiratory therapy.
Data:
EKG 09/2024: NSR, QTc 440
CT Chest 08/2024: 1. No evidence of pulmonary embolism.
2. No significant abnormality identified in the chest, as described above.
Venous Doppler 08/2023: No DVT
[2024-10-01] MEDS: SENSORCAINE 0.5% SINGLE DOSE 30 ML INJ (14:52)
--- NOTE | 2024-10-01 15:07 | W.PN.UPDATE ---
Update Note
Progress Note Update
procedure note
39536.50 bilateral occipital nerve block
06572.50 bilateral sphenopalatine ganglion block
diagnosis
M54.81 bilateral occipital neuralgia
G43.011 intractable migraine without aura
with 10 cc syringe, 22g x1.5 in needle bilateral occipital nerves at splenius capitis injected 4 cc bupivacaine 0.5% each side
patient placed supine, with 3 cc syringe, 20g x1.25 in plastic iv catheter, placed in each nostril bilateral sphenopalatine ganglion sprayed 1 cc bupivacaine 0.5% each side
--- NOTE | 2024-10-01 15:12 | CON.NEURO ---
Neuro Assessment/Plan
Assessment
migraines without aura, intractable
occipital neuralgia bilateral
migraines previously well controlled, now exacerbated due to menstruation/high estrogen as she is late on Depo-Provera, and adipose tissue releasing estrogen, in addition to sleep apnea/respiratory failure.
Plan
bilateral occipital nerve block + sphenopalatine ganglion block performed at bedside bupivacaine only, no steroids pending ACTH stim test
IV valproic acid 500 mg q6 hr
Toradol 30, Reglan 10, Benadryl 25 cocktail PRN
opiates are not generally recommended in the management of headaches
Consultation
Order
Date of Consultation: 10/01/24
Requesting Provider: Millie Herrera
Reason for Consult: Migraines
Subjective/Objective
Subjective Data
Date of Service: October 01, 2024
from h&p:
44-year-old female states she has had history of migraines since age 17. She reports she started with a migraine yesterday and took her Nurtec ODT which typically helps but did not she took a second dose along with Motrin which did not help. She
reportedly started Emgality monthly in December 2023 when she was having episodes of headaches 3-4 times a month lasting a week at each time. The Emgality has decreased the migraines to once a month only lasting a few days with her migraine
medications breaking the headaches until today. Complains of a posterior headache to the left voodoo with light sensitivity and nausea. She currently rates it as an 8 out of 10 after multiple drug regimen in the ER and it was a 9 out of 10 on
presentation to the ER. She was noted to be hypoxic as low as 83% on room air as high as 92% she is awake she has class III obesity with BMI 41. She admits to being diagnosed with sleep apnea but refused any machine because she likes to sleep on
her stomach she is not willing to try anything that will interfere with that. She was made aware that hypoxia can cause headaches, strokes, heart attacks if she does not address underlying hypoxia with oxygen intervention. She was made aware we
will check a venous blood gas to properly evaluate her oxygen and carbon dioxide levels. She denies recent travel, prolonged car rides, fever, chills, neck pain, sore throat, chest pain, palpitations, cough, shortness of breath, abdominal pain,
vomiting, diarrhea, urinary symptoms. She reports history of hyperkalemia x 1 in June 2024 at [facility] [place] with single dose medication but never followed up. Her potassium was noted to be 6.1 here in the ER she also reports she
resumed her Coreg to 25 mg twice daily for underlying tachycardia when she was recommended and given inpatient 3.125 mg twice daily she states her blood pressure has been stable at systolic 110 at home however is 95/56 here in the ER. Her
hemoglobin is 9.3 on current menses
She has past medical history anemia of chronic disease, blood loss anemia, iron deficiency anemia, B12 deficiency, left kidney abscess from UTI status post nephrostomy tube placement June 2024 with removal July 2024 mild BELEM, DM2, chronic lower
back pain on chronic oral opiates, constipation due to chronic oral opiates, endometriosis, asthma, sinus tachycardia, cholelithiasis s/p cholecystectomy, hypotension, anxiety, depression, class III obesity�BMI 41.6, sleep apnea does not use any
machine as she sleeps on her stomach and does not want to interfere
patient confirms that recently her migraines are reasonably well controlled with Emgality, and 1 headache/month usually responds to Nurtec. It has been many years since she's had a headache this bad. She is menstruating, which usually doesn't happen
but she is late getting Depo-Provera. at admission she was found to have episodic hypoxia, hyperkalemia, low cortisol 0.4, getting ACTH stim test. In the ED, migraine briefly responded to cocktail of Toradol 30, Reglan 10, Dilaudid 1mg, and headache
presently occipital, throbbing, 9/10, with photophobia. Has previously gotten occipital nerve blocks which have sometimes been effective.
ROS: admits to tingling/numbness in right dominant hand, and weakness in both legs, photophobia
Objective Data
Vital Signs
Temp Pulse Resp BP Pulse Ox
36.9 C 88 18 118/75 93
10/01/24 11:07 10/01/24 11:07 10/01/24 11:07 10/01/24 11:07 10/01/24 11:07
Lab Results
10/01/24 05:09
10/01/24 05:09
Sodium 141 mmol/L (135-145) 10/01/24 05:09
Potassium 4.9 mmol/L (3.5-5.1) 10/01/24 05:09
BUN 16 mg/dl (7-17) 10/01/24 05:09
Glucose 157 mg/dl (70-99) H 10/01/24 05:09
Calcium 8.2 mg/dl (8.4-10.2) L 10/01/24 05:09
Patient Allergies
Sulfa (Sulfonamide Antibiotics) Allergy (Verified 09/30/24 14:34)
HIVES, SOB
bee stings Allergy (Uncoded 09/30/24 14:34)
severe swelling
Physical Exam
-
AAOx3, speech clear, language intact
VFF, EOMI, face symmetric
full strength b/l UE, 4/5 b/l LE
sensation decreased pin in right ulnar distribution
tender bilateral occipital nerves, palpation worsens her migraine
Medications
-
Active Medications
Generic Name Dose Route Start Last Admin
Trade Name Freq PRN Reason Stop Dose Admin
Atorvastatin Calcium 10 mg 10/01/24 08:00 10/01/24 08:43
Atorvastatin (Lipitor) 10 Mg Tablet PO 10/29/24 07:59 10 mg
DAILY SHAQ Administration
Calcium Carbonate 500 mg 10/01/24 08:00 10/01/24 08:43
Calcium Carbonate 500 Mg Tablet PO 10/29/24 07:59 500 mg
DAILY SHAQ Administration
Cholecalciferol 75 mcg 10/01/24 08:00 10/01/24 08:44
Cholecalciferol (Vitamin D3) 25 Mcg Tablet (1,000 Units) PO 10/29/24 07:59 75 mcg
DAILY SHAQ Administration
Cosyntropin 0.25 mg 10/02/24 07:00
Cosyntropin (0.25 Mg/Ml) 1 Ml Vial IV 10/02/24 07:01
ONCE ONE
Cyanocobalamin 1,000 mcg 10/01/24 08:00 10/01/24 08:43
Cyanocobalamin 1,000 Mcg Tablet PO 10/29/24 07:59 1,000 mcg
DAILY SHAQ Administration
Dextrose 12.5 grams 09/30/24 18:36
Dextrose 50% (0.5 Grams/Ml) 50 Ml Syringe IV 10/28/24 18:35
[id number] PRN
hypoglycemia (BG < 70 mg/dL)
Protocol
Duloxetine HCl 90 mg 10/01/24 08:00 10/01/24 08:44
Duloxetine Delayed Release 30 Mg Capsule PO 10/29/24 07:59 90 mg
DAILY SHAQ Administration
Enoxaparin Sodium 40 mg 10/01/24 18:00
Enoxaparin Sodium 40 Mg/0.4 Ml Syringe SC 10/29/24 17:59
QPM SHAQ
Ergocalciferol 50,000 units 10/04/24 08:00
Ergocalciferol (Vitamin D-2) 08208 Units Capsule PO 11/01/24 07:59
WE SHAQ
Glucagon 1 mg 09/30/24 22:31
Glucagon 1 Mg Vial IM 10/28/24 22:30
PRN PRN
hypoglycemia
Protocol
Valproate Sodium 500 mg/ 55 mls @ 55 mls/hr 10/01/24 12:00 10/01/24 12:43
Sodium Chloride IV 10/29/24 11:59 55 mls
Q6 SHAQ Administration
Insulin Aspart 0 units 10/01/24 07:30 10/01/24 12:18
Insulin Aspart Low Resistance 300 Units/3 Ml Pen.Injctr SC 10/29/24 07:29 Not Given
AC SHAQ
Protocol
Magnesium 84 mg 10/01/24 18:00
Magnesium Lactate 84 Mg Tablet PO 10/29/24 17:59
QPM SHAQ
Methocarbamol 750 mg 09/30/24 22:50 10/01/24 11:22
Methocarbamol 750 Mg Tablet PO 10/28/24 22:49 750 mg
BIDPRN PRN Administration
BACK PAIN
Metoclopramide HCl 10 mg 09/30/24 22:31
Metoclopramide 10 Mg/2 Ml Vial IV 10/28/24 22:30
Q6HPRN PRN
nausea vomitiing
Morphine Sulfate 15 mg 09/30/24 22:31 10/01/24 12:53
Morphine 15 Mg Immediate Release Tablet PO 10/14/24 22:30 15 mg
Q4HPRN PRN Administration
severe pain
Non-Formulary Medication 75 mg 09/30/24 22:31
Rimegepant [Nurtec Odt] PO
DAILYPRN PRN
migraines
Pregabalin 200 mg 10/01/24 08:00 10/01/24 08:45
Pregabalin 100 Mg Capsule PO 10/29/24 07:59 200 mg
TID SHAQ Administration
Sertraline HCl 25 mg 09/30/24 22:31 09/30/24 23:30
Sertraline 25 Mg Tablet PO 10/28/24 22:30 25 mg
HS SHAQ Administration
Sodium Chloride 0 flush 09/30/24 21:00 09/30/24 21:13
Sodium Chloride 0.9% (Flush) Syringe IV 10/28/24 20:59 1 flush
PER PROTOCOL SHAQ Administration
Sodium Chloride 1 ml 10/02/24 07:00
Sodium Chloride 0.9% (Preservative Free) 10 Ml Vial IV 10/02/24 07:01
ONCE ONE
Home Medications
�Medication �Instructions �Recorded
carisoprodol 350 mg tablet (Soma) 350 mg PO BIDPRN PRN back pain 07/02/09
medroxyprogesterone 150 mg/mL 150 mg IM [id number] Hormonal Agent 07/02/09
intramuscular suspension ##0
atorvastatin 10 mg tablet 10 mg PO DAILY High Cholesterol 09/03/20
carvedilol 25 mg tablet (Coreg) 25 mg PO BID Heart 09/03/20
Disease/Condition
duloxetine 60 mg capsule,delayed 90 mg PO DAILY Mental 09/03/20
release Health/Anxiety
fluticasone propionate 50 2 spray intranasal DAILY Allergies 09/03/20
mcg/actuation nasal
spray,suspension
metformin 500 mg tablet 500 mg PO BID Diabetes 09/03/20
ferrous sulfate 27 mg iron tablet 27 mg PO TUTH Supplement 07/29/24
magnesium 200 mg tablet 200 mg PO QPM Supplement 07/29/24
morphine 15 mg immediate release 15 mg PO Q4HPRN PRN severe pain 07/29/24
tablet
pregabalin 200 mg capsule 200 mg PO TID Mental Health/Anxiety 07/29/24
sertraline 25 mg tablet (Zoloft) 25 mg PO HS Mental Health/Anxiety 07/29/24
rimegepant 75 mg disintegrating 75 mg PO DAILYPRN PRN migraines 07/31/24
tablet (Nurtec ODT)
cyanocobalamin (vitamin B-12) 1,000 mcg PO DAILY 30 days #30 tabs 08/04/24
1,000 mcg tablet (Vitamin B-12)
calcium carbonate 500 mg PO DAILY 09/30/24
cholecalciferol (vitamin D3) 25 75 mcg PO DAILY 09/30/24
mcg (1,000 unit) tablet (Vitamin
D3)
ergocalciferol (vitamin D2) 1,250 1,250 mcg PO WE 09/30/24
mcg (50,000 unit) capsule
galcanezumab-gnlm 120 mg/mL 120 mg SC QMONTH 09/30/24
subcutaneous syringe (Emgality)
ibuprofen 600 mg tablet 600 mg PO BIDPRN PRN mild pain 09/30/24
ibuprofen 600 mg tablet (IBU) 600 mg PO BID 09/30/24
zinc sulfate 50 mg zinc (220 mg) 50 mg PO QPM 09/30/24
tablet
[2024-10-01 16:39] LABS: Glucose - Point of Care 117 mg/dl (70-99)
[2024-10-01] MEDS: TORADOL 30 MG IV (16:58)
[2024-10-01] MEDS: BENADRYL 25 MG IV (17:03)
[2024-10-01] MEDS: MAG-TAB SR 84 MG PO (17:06)
--- NOTE | 2024-10-01 17:54 | PTCARENOTE ---
pt received Bupivacaine injections in occipital nerve from Dr. Cook, on reassessment pt stated the headache has now moved to left side of head. pt seemed to find no relief from any medication given. Asking for narcotics but none administered beside
home PRN d/t concern for worsening symptoms. Did place ice for pt thru out shift kept room dark, quiet. pt ate 100% of meals and never experienced any nausea. Self in room to bathroom. Has period.
[2024-10-01] MEDS: ZOLOFT 25 MG PO (21:01)
[2024-10-01 21:32] LABS: Glucose - Point of Care 143 mg/dl (70-99)
--- NOTE | 2024-10-01 22:43 | RESPNOTE ---
Patient placed on nocturnal pulse ox per MD order at 10pm.
[2024-10-02] MEDS: TORADOL 30 MG IV ×3 (00:04→22:44)
[2024-10-02] MEDS: BENADRYL 25 MG IV ×2 (00:04→08:44)
[2024-10-02] MEDS: REGLAN 10 MG IV ×4 (00:04→22:43)
--- NOTE | 2024-10-02 01:47 | PTCARENOTE ---
10/02: Pt sustained pulse ox of 80 for over 5 minutes. Notified [employer]ODUCTION [employer]SEM[employer] SUPERVISOR and RT. pt assessed. easily rousable. Placed on 2L NC. O2 sating at 95 on 2L sustained.
[2024-10-02 03:11] VITALS: BP 121/74
[2024-10-02] MEDS: MORPHINE SULFATE 15 MG PO ×4 (04:25→20:34)
[2024-10-02 04:57] LABS: B.E. 7.8 mmol/L; HCO3 33.6 mmol/L (21-28); O2 Saturation % 98.5 % (94-98); PCO2 53 mmHg (32-35); PO2 99 mmHg (83-108); pH 7.41 (7.35-7.45)
[2024-10-02] MEDS: DEPACON 55 MG IV (05:25)
--- NOTE | 2024-10-02 06:54 | W.PN.HOSP.TC ---
Addendum entered and electronically signed by Millie Herrera MD 10/02/24 16:27:
I saw and evaluated the patient independently. I reviewed the resident�s note and agree with findings and plan as documented by Dr. Angelo.
GENERAL: well developed, well nourished, morbidly obese female in no apparent distress
HEENT: NC/AT
HEART: regular rate and rhythm, +S1, +S2
LUNGS : clear to auscultation bilaterally
ABDOM: soft, nontender, nondistended, + bowel sounds
EXT: no cyanosis, clubbing, or edema
NEUROLOGIC: grossly intact
Migraine attack -- likely exacerbated by multiple factors--usually well controlled on Nurtec ODT and Emgality--valproic acid started and stopped by neuro, apprec input---correcting underlying factors may improve her migraines--apprec neuro
periods of Hypoxia--History of obstructive sleep apnea--patient is not compliant with treatment recommendations--not using CPAP or BiPAP--likely secondary to obesity hypoventilation condition--likely chronic resp acidosis with chronic elevation of
serum bicarbonate--apprec pulm-- nocturnal pulse ox overnight shows need for O2--opioid use for migraines contributing--needs formal sleepy study as outpt
Patient is in need of oxygen at 2 liters/minute via nasal cannula continuously at night due to overnight oximetry showing desaturation as low as 75%. Oxygen will help to improve hypoxemia. Patient is mobile within the home. DuoNeb therapy has been
tried and is ineffective in treating hypoxemia related symptoms. Oxygen is needed to improve symptoms.
Chronic back pain--chronic dependency on opioids--f/u at [facility] pain management at [place]- Continue her medication including [employer] morphine 15 mg PO Q4H PRN for severe pain- Continue pregabalin 200 mg PO TID- Continue duloxetine 90 mg
daily--Continue carisoprodol [Soma] qid PRN
Hyperkalemia--due to adrenal insufficiency
adrenal insufficiency--confirmed by STIM test--TSH also mildly elevated and pt might need replacement--started hydrocortisone 20mg QAM and 10mg QPM
Anxiety/depression- Not longer on lorazepam /discontinued in July - Continue sertraline 25 mg PO HS
HX chronic sinus tachycardia- Continue carvedilol
Chronic normocytic anemia -Hemoglobin is likely at her baseline-No signs of active bleeding-Continue vitamin B12-EGD and colonoscopy copy in July 2024: Not remarkable for GI bloating
T2DM - Hold metformin- ISS
Morbid Obesity( BMI 41-42)- Due to excess calories- Affects all aspects of medical care
DVT Proph-- LMWH
code status--Full code
Original Note:
Today's Communication/Plan
-
-ACTH stimulation test completed with primary adrenal insufficiency-started hydrocortisone
-Planning to start thyroid medication with T4 level result
-Given Lokelma due to recurrent hyperkalemia
- Discontinued IV valproic acid and as needed medication for migraine including Toradol Reglan and Benadryl
- Given DHE 1 mg with ondansetron was an diphenhydramine 50 mg was by neurology
- Nocturnal respiratory test reviewed by pulmonology and recommended nightly oxygen use at 2 L
Assessment / Plan
Assessment / Plan
# Migraine attack likely exacerbated by multiple factors
-History of migraine since age of 17-recently well controlled on Nurtec ODT and Emgality
-Continue to MIT[employer]PER[employer] Nurtec ODT 75 mg PO PRN
-Continue Emgality 120 mg SC Q month
-Neuro on board -applied injection(sphenopalatine and occipital nerve block with local anesthetic)(this injection did not include steroids to prevent affecting ACTH stimulation test results)
-Dc`ed valproic acid after given single loading dose
-Given DHE 1 mg IV with ondansetron and diphenhydramine 50 mg for once this morning per neurology-suggesting brain MRI if patient on response of 2 additional treatments
- Discontinued to PRN Toradol 30, Reglan 10, Benadryl 25
# Hypoxia
-History of obstructive sleep apnea-patient is not compliant with treatment recommendations-not using CPAP or BiPAP
-Likely secondary to obesity hypoventilation condition
- Last VBG is not reliable as much as ABG suggesting lactic chronic respiratory acidosis given elevated HCO3 levels
- Her chronic opioid use may be contributing
-Try to avoid opioids medication given her respiratory problems
-Patient was obtained nocturnal pulse oximetry test on 10/02/2024 night per pulmonology recommendation
- Pulmonology on board: Recommending discharging on home oxygen 2 L only nightly and recommendation sleep study at outpatient setting
#Adrenal insufficiency
-ACTH Stimulation test done this morning complaint with adrenal insufficiency with cortisol level under 20 following cosyntropin administration
- TSH level elevated therefore adrenal insufficiency is considered primary adrenal insufficiency
- Started on hydrocortisone 20 mg am and 10 mg p.m.
-TSH level elevated to 7.39 ( T4, LH and FSH [id number])
# Hypothyroidism
- TSH level elevated
- T4 pending
- Planning to start thyroid medication after given steroids and had T4 level result
# Recurrent hyperkalemia possibly secondary to adrenal insufficiency
- Potassium level 5.5 this a.m.-given Lokelma
- Ordered ACTH stimulation test complaint with primary adrenal insufficiency
# Chronic back pain
- Patient is on opioids on daily basis
- f/u at [facility] pain management at [place]
- Continue her medication including [employer] morphine 15 mg PO Q4H PRN for severe pain
- Continue pregabalin 200 mg PO TID
- Continue duloxetine 90 mg daily
- Continue carisoprodol [Soma] qid PRN
#Anxiety/depression
- Not longer on lorazepam /discontinued in July
- Continue sertraline 25 mg PO HS
#HX chronic sinus tachycardia
- Continue carvedilol
# Chronic normocytic anemia
-Hemoglobin is likely at her baseline
-No signs of active bleeding
-Continue vitamin B12
-EGD and colonoscopy copy in July 2024: Not remarkable for GI bleeding
#T2DM
- Hold metformin
- ISS
#Morbid Obesity( BMI 41-42)
- Due to excess calories
- Affects all aspects of medical care
DVT Px: LMWH
Full code
Anticipated Discharge: 24 - 48 hours
Subjective/Interval History
-
Date of Service: October 02, 2024
Patient reports her occipital headache improved following the injection applied by neurology yesterday. She complains having some frontal headache.
Objective Data
-
Labs:
Laboratory Results
10/02/24 10/02/24
04:34 06:00
WBC Pending
Hgb Pending
Hct Pending
Plt Count Pending
HCO3 33.6 H
Sodium Pending
Potassium Pending
Chloride Pending
Carbon Dioxide Pending
BUN Pending
Creatinine Pending
Glucose Pending
Calcium Pending
Total Bilirubin Pending
AST Pending
ALT Pending
Alkaline Phosphatase Pending
Vital Signs:
Vital Signs
Temp Pulse Resp BP Pulse Ox
98.0 F 89 17 121/74 94
10/02/24 03:11 10/02/24 03:11 10/02/24 03:11 10/02/24 03:11 10/02/24 03:11
I&O
09/30/24 10/01/24 10/02/24
06:59 06:59 06:59
Intake Total 450 / 450 800 / 800
Balance 450 / 450 800 / 800
Review of Systems
-
History Source: Patient
Constitutional: Reports Other (Headache)
EENT: Reports No Symptoms Reported
Respiratory: Reports No Symptoms
Cardiac: Reports No Symptoms
Abdomen/GI: Reports No Symptoms
Genitourinary: Reports No Symptoms
Musculoskeletal: Reports No Symptoms
Skin: Reports No Symptoms
Neuro: Reports No Symptoms
Physical Exam
-
General: Well Developed, Well Nourished and Morbidly Obese
HEENT: Normocephalic and Atraumatic
Respiratory: Clear to Auscultation
Cardiac: Regular Rhythm and S1/S2
GI: Soft, Nontender and Nondistended
Musculoskeletal: No Clubbing, No Cyanosis and No Edema
Neuro: Awake, Alert, Oriented, AO x 3 and Nonfocal/Grossly Intact
Psych: Calm
[2024-10-02 07:05] VITALS: BP 125/76
[2024-10-02 07:11] LABS: Glucose - Point of Care 107 mg/dl (70-99)
[2024-10-02 08:16] LABS: % Basophils 0.2 % (0-2); % Eosinophils 2.3 % (0-6); % Immature Granulocytes 0.2 % (0-0.5); % Monocytes 7.3 % (1.7-9.3); Absolute Eosinophils 0.2 10^3/uL (0-0.7); Absolute Lymphocytes 2.9 10^3/uL (1.2-3.4); Absolute Monocytes 0.6 10^3/uL (0.1-0.6); Absolute Neutrophils 4.6 10^3/uL (1.4-6.5); Hematocrit 28.4 % (37.0-47.0); Hemoglobin 8.8 g/dL (12.0-16.0); Mean Corpuscular Hgb 28.8 pg (27.0-31.0); Mean Corpuscular Volume 92.8 fL (81.0-99.0); Mean Platelet Volume 10.9 fL (7.4-10.4); Nucleated Red Blood Cells % 0 %; Platelet Count 187 10^3/uL (130-400); Red Blood Cell Count 3.06 10^6/uL (4.20-5.40); White Blood Cell Count 8.4 10^3/uL (4.8-10.8)
[2024-10-02] MEDS: CORTROSYN 0.25 MG IV (08:29)
[2024-10-02] MEDS: CYMBALTA DELAYED RELEASE 90 MG PO (08:43)
[2024-10-02] MEDS: VITAMIN B-12 1000 MCG PO (08:43)
[2024-10-02] MEDS: VITAMIN D3 (cholecalciferol) 75 MCG PO (08:43)
[2024-10-02] MEDS: LYRICA 200 MG PO ×3 (08:43→22:04)
[2024-10-02] MEDS: LIPITOR 10 MG PO (08:43)
[2024-10-02] MEDS: OSCAL CAL 500 500 MG PO (08:43)
--- NOTE | 2024-10-02 08:59 | W.PN.NEURO.1 ---
Today's Communication / Plan
-
Discontinue IV valproic acid 500 mg q6 hr
Provide single loading dose of valproic acid
Discontinue Toradol 30, Reglan 10, Benadryl 25 cocktail PRN
DHE 1 mg IV once
Ondansetron with DHE dosing
Diphenhydramine 50 mg once
Neuro Assessment/Plan
Assessment
migraines without aura, intractable
occipital neuralgia bilateral
bilateral occipital nerve block + sphenopalatine ganglion block performed at bedside bupivacaine only without success
migraines previously well controlled, now exacerbated due to CO2 retention and obstructive sleep apnea as well as anemia
Plan
Discontinue IV valproic acid 500 mg q6 hr
Provide single loading dose of valproic acid
Discontinue Toradol 30, Reglan 10, Benadryl 25 cocktail PRN
DHE 1 mg IV once
Ondansetron with DHE dosing
Diphenhydramine 50 mg once
Continue duloxetine 90 mg daily
Must consider MRI of brain if unresponsive to additional therapies
Will follow as needed
Subjective/Objective
Subjective Data
Date of Service: October 02, 2024
Moved from back to front of head
Intensity 7/10
Didn't repeat Rimegepant
No benefit from Rizatriptan
Last MRI of brain 2020
Objective Data
Vital Signs
Temp Pulse Resp BP Pulse Ox
36.8 C 75 18 125/76 100
10/02/24 07:05 10/02/24 07:05 10/02/24 07:05 10/02/24 07:05 10/02/24 07:05
Lab Results
10/02/24 08:00
Sodium 141 mmol/L (135-145) 10/01/24 05:09
Potassium 4.9 mmol/L (3.5-5.1) 10/01/24 05:09
BUN 16 mg/dl (7-17) 10/01/24 05:09
Glucose 157 mg/dl (70-99) H 10/01/24 05:09
Calcium 8.2 mg/dl (8.4-10.2) L 10/01/24 05:09
Patient Allergies
Sulfa (Sulfonamide Antibiotics) Allergy (Verified 09/30/24 14:34)
HIVES, SOB
bee stings Allergy (Uncoded 09/30/24 14:34)
severe swelling
Review of Systems
-
History Source: Patient
All other systems: Reviewed and negative
EENT: Other (photophobia, phonophobia)
Respiratory: Negative Trouble Breathing
Cardiac: Negative Chest Pain
Abdomen/GI: Nausea; Negative Incontinence of Stool
Genitourinary: Negative Incontinence
Musculoskeletal: Back Pain and Neck Pain
Neuro: Headache; Negative Dizzy
Physical Exam
-
General: No Apparent Distress and Appears Stated Age
Eyes: Round OU, [place] Conjunctivae and No Ptosis
HEENT: Anicteric and Moist Mucous Membranes
Neck: Full Range of Motion
Respiratory: No Dyspnea
Cardiac: No JVD
GI: Non-distended
Skin: Unremarkable
Extremities: No Clubbing, No Cyanosis and No Edema
Psych: Intact Judgement/Insight
Extended Neurological Exam
Mood & Affect: Mood Unremarkable and Affect Unremarkable
Attention Span & Concentration: Awake, Alert and Interactive
Memory: Unremarkable
Tremor: Hand Tremor Absent and Head Tremor Absent
Speech: Quality Unremarkable and Quantity Unremarkable
Cranial Nerve II: Left Eye: Pupillary Size Unremarkable and Visual [place] Grossly Intact
Cranial Nerve II: Right Eye: Pupillary Size Unremarkable and Visual [place] Grossly Intact
Cranial Nerves III, IV, : Extraocular Movement: Grossly Intact
Cranial Nerve VII: Facial Symmetry: Normal Facial Symmetry
Cranial Nerve VIII: Hearing: Unremarkable Hearing to Normal Conversational Volume
Cranial Nerve XI: Shoulder Shrug: Unremarkable
Muscle Strength, Overall: Spontaneously Moves
Muscle Bulk & Tone: Bulk Unremarkable and Tone Unremarkable
Touch Sensation: Unremarkable
Coordination: [id number] Testing Unremarkable
Data Reviewed
-
Labs: Report Reviewed
Reviewed with: Physician and Patient
Old Records: Summarized
Past History
Past History
ED Past Medical History: NIDDM, [place], Psychiatric (Major depression, generalized anxiety disorder), Other (Anemia of iron deficiency, B12 deficiency, left kidney abscess from urinary tract infection, chronic back pain, endometriosis, cholelithiasis,
obstructive sleep apnea) and Other (Fibromyalgia)
ED Past Surgical History: Appendectomy, Cholecystectomy and Urological (Left nephrostomy drain)
Social History
Tobacco: Non-smoker
Alcohol: None
Drug: None
Living: with family
Employment: Employed
Family History
Family History: CAD and Cancer
Medications
-
Medications:
Generic Name Dose Route Start Last Admin
Trade Name Freq PRN Reason Stop Dose Admin
Atorvastatin Calcium 10 mg 10/01/24 08:00 10/02/24 08:43
Atorvastatin (Lipitor) 10 Mg Tablet PO 10/29/24 07:59 10 mg
DAILY SHAQ Administration
Calcium Carbonate 500 mg 10/01/24 08:00 10/02/24 08:43
Calcium Carbonate 500 Mg Tablet PO 10/29/24 07:59 500 mg
DAILY SHAQ Administration
Cholecalciferol 75 mcg 10/01/24 08:00 10/02/24 08:43
Cholecalciferol (Vitamin D3) 25 Mcg Tablet (1,000 Units) PO 10/29/24 07:59 75 mcg
DAILY SHAQ Administration
Cyanocobalamin 1,000 mcg 10/01/24 08:00 10/02/24 08:43
Cyanocobalamin 1,000 Mcg Tablet PO 10/29/24 07:59 1,000 mcg
DAILY SHAQ Administration
Dextrose 12.5 grams 09/30/24 18:36
Dextrose 50% (0.5 Grams/Ml) 50 Ml Syringe IV 10/28/24 18:35
[id number] PRN
hypoglycemia (BG < 70 mg/dL)
Protocol
Diphenhydramine HCl 25 mg 10/01/24 15:22 10/02/24 08:44
Diphenhydramine 50 Mg/Ml 1 Ml Vial IV 10/29/24 15:21 25 mg
Q6HPRN PRN Administration
headache
Duloxetine HCl 90 mg 10/01/24 08:00 10/02/24 08:43
Duloxetine Delayed Release 30 Mg Capsule PO 10/29/24 07:59 90 mg
DAILY SHAQ Administration
Enoxaparin Sodium 40 mg 10/01/24 18:00 10/01/24 17:08
Enoxaparin Sodium 40 Mg/0.4 Ml Syringe SC 10/29/24 17:59 Not Given
QPM SHAQ
Ergocalciferol 50,000 units 10/04/24 08:00
Ergocalciferol (Vitamin D-2) 87005 Units Capsule PO 11/01/24 07:59
WE SHAQ
Glucagon 1 mg 09/30/24 22:31
Glucagon 1 Mg Vial IM 10/28/24 22:30
PRN PRN
hypoglycemia
Protocol
Valproate Sodium 500 mg/ 55 mls @ 55 mls/hr 10/01/24 12:00 10/02/24 05:25
Sodium Chloride IV 10/29/24 11:59 55 mls
Q6 SHAQ Administration
Insulin Aspart 0 units 10/01/24 07:30 10/02/24 07:13
Insulin Aspart Low Resistance 300 Units/3 Ml Pen.Injctr SC 10/29/24 07:29 Not Given
AC SHAQ
Protocol
Ketorolac Tromethamine 30 mg 10/01/24 15:22 10/02/24 08:44
Ketorolac 30 Mg/Ml Injection IV 10/06/24 15:21 30 mg
Q6HPRN PRN Administration
headache
Magnesium 84 mg 10/01/24 18:00 10/01/24 17:06
Magnesium Lactate 84 Mg Tablet PO 10/29/24 17:59 84 mg
QPM SHAQ Administration
Methocarbamol 750 mg 09/30/24 22:50 10/01/24 11:22
Methocarbamol 750 Mg Tablet PO 10/28/24 22:49 750 mg
BIDPRN PRN Administration
BACK PAIN
Metoclopramide HCl 10 mg 10/01/24 15:46 10/02/24 08:44
Metoclopramide 10 Mg/2 Ml Vial IV 10/29/24 15:45 10 mg
Q6HPRN PRN Administration
headache
Morphine Sulfate 15 mg 09/30/24 22:31 10/02/24 08:54
Morphine 15 Mg Immediate Release Tablet PO 10/14/24 22:30 15 mg
Q4HPRN PRN Administration
severe pain
Non-Formulary Medication 75 mg 09/30/24 22:31
Rimegepant [Nurtec Odt] PO
DAILYPRN PRN
migraines
Pregabalin 200 mg 10/01/24 08:00 10/02/24 08:43
Pregabalin 100 Mg Capsule PO 10/29/24 07:59 200 mg
TID SHAQ Administration
Sertraline HCl 25 mg 09/30/24 22:31 10/01/24 21:01
Sertraline 25 Mg Tablet PO 10/28/24 22:30 25 mg
HS SHAQ Administration
Sodium Chloride 0 flush 09/30/24 21:00 09/30/24 21:13
Sodium Chloride 0.9% (Flush) Syringe IV 10/28/24 20:59 1 flush
PER PROTOCOL SHAQ Administration
[2024-10-02 09:04] LABS: ALT (SGPT) 15 U/L (0-35); AST (SGOT) 15 U/L (14-36); Albumin 3.2 g/dl (3.5-5.0); Alkaline Phosphatase 56 U/L (38-126); Blood Urea Nitrogen 17 mg/dl (7-17); Calcium 8.5 mg/dl (8.4-10.2); Carbon Dioxide 37 mmol/L (22-30); Chloride 103 mmol/L (98-107); Estimated Creatinine Clearance 93 ml/min; Glucose 92 mg/dl (70-99); Potassium 5.5 mmol/L (3.5-5.1); Sodium 140 mmol/L (135-145); Total Bilirubin 0.4 mg/dl (0.2-1.3); eGFR > 60.00
[2024-10-02 09:16] LABS: TSH Reflex To Free T4 7.39 uIU/ml (0.47-4.68)
[2024-10-02 09:17] LABS: ACTH Stim Cortisol 0 Min 0.4 ug/dl
[2024-10-02 10:02] LABS: ACTH Stim Cortisol 30 Min 3.9 ug/dl
[2024-10-02] MEDS: BENADRYL 50 MG IV (10:27)
[2024-10-02] MEDS: ZOFRAN 4 MG IV (10:28)
[2024-10-02] MEDS: DHE-45 1 MG IV (10:29)
[2024-10-02 10:37] LABS: ACTH Stim Cortisol 60 Min 5.1 ug/dl
[2024-10-02 11:00] VITALS: BP 127/69
[2024-10-02] MEDS: DEPACON 60 MG IV (11:05)
[2024-10-02] MEDS: LOKELMA 10 GRAM PO (11:06)
[2024-10-02 11:09] LABS: Glucose - Point of Care 128 mg/dl (70-99)
[2024-10-02] MEDS: CORTEF 20 MG PO (12:00)
[2024-10-02 15:05] VITALS: BP 121/74
--- NOTE | 2024-10-02 15:06 | CM ---
Attending sent CM TT that patient maybe ready for discharge tomorrow. Attending sent notes from danita Nieves that AN overnight oximetry showed O 2 as low as 75. recommend d/c home on O 2 , 2 ltr at night.
CM to follow up tomorrow and check for the respiratory therapist home oxygen check up to see if patient qualifies for home oxygen.
[2024-10-02 16:10] LABS: Glucose - Point of Care 135 mg/dl (70-99)
--- NOTE | 2024-10-02 16:15 | W.PN.PUL3 ---
Today's Communication / Plan
-
- High likelihood of underlying sleep disordered breathing
- Please discharge patient on home oxygen to be used at night only
- Will arrange outpatient follow-up with pulmonary clinic for sleep study and pulmonary function testing
- Pulmonary service will sign off, please call as needed
Assessment
-
Patient is a 44 y/o female who presented to the hospital with headache, thought to be related to her known h/o migraine headaches. Patient was noted to be hypoxic which improved with supplemental O2. She was subsequently weaned to room air, and
saturations have stayed normal. VBG was performed which showed hyeprcapnia, 7.3/68, and 4 hrs follows up VBG was 7.34/62. She was placed on BIPAP, 04/13. By the time of my evaluation, she was on room air, off BIPAP. Patient reports h/o sleep study in
2020, suggestive of mild PAN (details not available). Patient reports that her weight has fluctuated since 2020. She has not been on CPAP or BIPAP at home. Not on any supplemental O2 either. No reported pleuritic pain today, no hemoptysis etc.
Patient has CTPE study performed last month which was negative for PE, with normal pulmonary parenchyma. Pulmonary consult was requested for further input.
Reported h/o exercise induced asthma in teen years, managed with PRN Albuterol. Has not u sed Albuterol in many years.
#1. Hypoxic and hypercapnic respiratory failure, suspect chronic (?PAN/OHS)
- Patient has normal pH of 7.34 with elevated pCO2 of 62. Bicarb is also elevated on blood gas, suggestive of chronicity.
- Patient is awake, alert, oriented x 3
- Overnight oximetry show desaturation as low as 75.
- BMI noted to be 41.1. Reported abnormal sleep study few years ago suggestive of sleep apnea
- Suspect patient has underlying sleep disordered breathing and likely obesity hypoventilation also with chronic hypercapnia, which is likely exacerbated by opiates that she takes chronically for migraine headache
- Patient needs a formal sleep study as well as pulmonary function testing and 6-minute walk test as outpatient, will arrange follow-up with pulmonary clinic
- Ideally patient should avoid all narcotics and other sedating medication which can increase risk of central sleep apnea in addition to her suspected obstructive sleep apnea
- If patient develops any mental status changes, recommend initiating noninvasive positive pressure ventilation and checking arterial blood gas
- No overt hypercapnia developed this morning
#2. H/o Exercise-induced asthma.
- Patient reports she was diagnosed with exercise-induced asthma in her teen years
- Historically managed with as needed albuterol, patient reports last albuterol use was many years ago without any recent exacerbation
- Will pursue pulmonary function testing as outpatient.
Other medical diagnoses:
- Chronic migraine headaches
- Anemia, chronic
- Fibromyalgia
- Chronic pain, chronic prescription opioid use
- Class III obesity, BMI > 41
- DM
DVT prophylaxis with subcu Lovenox. Particularly important considering patient is on Depo shots for contraception.
Total time spent on this consultation/encounter __46__ minutes which includes review of history, physical exam, medications, laboratory data, personal review of imaging, extensive review of outpatient records, discussion with care team and
respiratory therapy.
Data:
EKG 09/2024: NSR, QTc 440
CT Chest 08/2024: 1. No evidence of pulmonary embolism.
2. No significant abnormality identified in the chest, as described above.
Venous Doppler 08/2023: No DVT
Subjective Data
-
Date of Service:
Date of Service: October 02, 2024
Subjective:
Patient comfortably lying in bed in no acute distress. She was saturating well on room air. Patient did not use any CPAP overnight.
Review of Systems
Genitourinary: Other (All 14 systems reviewed and negative except as stated above in the history of present illness.)
Objective Data
Data Reviewed
Vital Signs / I&O / Oxygen:
Vital Signs
Temp Pulse Resp BP Pulse Ox
98.5 F 85 16 121/74 91
05/26/25 15:05 10/02/24 15:05 10/02/24 15:05 10/02/24 15:05 10/02/24 15:05
Intake and Output
10/01/24 10/02/24 10/03/24
06:59 06:59 06:59
Intake Total 450 / 450 1320 / 1320
Balance 450 / 450 1320 / 1320
SaO2 91
Nasal Cannula flow liters per 1
minute
Physical Exam
General: Comfortable
HEENT: Normocephalic
Cardiovascular: S1-S2
Respiratory: Clear and Non-Labored Respirations
GI: Soft and Non Distended
Neurology: Awake and Alert
Skin: Warm
Labs/Micro/Reports
Lab Data
10/02/24 08:00
10/02/24 08:00
Laboratory Results
10/02/24
04:34
pH 7.41
pCO2 53 H
pO2 99
HCO3 33.6 H
O2 Delivery Level
[2024-10-02 16:21] LABS: Free T4 0.99 ng/dl (0.78-2.19)
[2024-10-02] MEDS: CORTEF 10 MG PO (17:07)
[2024-10-02] MEDS: MAG-TAB SR 84 MG PO (17:08)
[2024-10-02 20:19] LABS: FSH 2.5 mIU/ml
[2024-10-02] MEDS: METHOCARBAMOL 750 MG PO (20:35)
[2024-10-02 21:58] LABS: Glucose - Point of Care 116 mg/dl (70-99)
[2024-10-02] MEDS: ZOLOFT 25 MG PO (22:04)
[2024-10-02 23:00] VITALS: BP 127/64
[2024-10-03] MEDS: MORPHINE SULFATE 15 MG PO ×3 (00:47→13:26)
[2024-10-03] MEDS: TORADOL 15 MG IV (04:05)
--- NOTE | 2024-10-03 06:42 | W.PN.HOSP.TC ---
Addendum entered and electronically signed by Millie Herrera MD 10/03/24 13:56:
I saw and evaluated the patient independently. I reviewed the resident�s note and agree with findings and plan as documented by Dr. Angelo.
GENERAL: well developed, well nourished, morbidly obese female in no apparent distress
HEENT: NC/AT
HEART: regular rate and rhythm, +S1, +S2
LUNGS : clear to auscultation bilaterally
ABDOM: soft, nontender, nondistended, + bowel sounds
EXT: no cyanosis, clubbing, or edema
NEUROLOGIC: grossly intact
Migraine attack -- likely exacerbated by multiple factors--usually well controlled on Nurtec ODT and Emgality--valproic acid started and stopped by neuro, apprec input---correcting underlying factors may improve her migraines--apprec neuro
periods of Hypoxia--History of obstructive sleep apnea--patient is not compliant with treatment recommendations--not using CPAP or BiPAP--likely secondary to obesity hypoventilation condition--likely chronic resp acidosis with chronic elevation of
serum bicarbonate--apprec pulm-- nocturnal pulse ox overnight shows need for O2--opioid use for migraines contributing--needs formal sleepy study as outpt
Patient is in need of oxygen at 2 liters/minute via nasal cannula continuously at night due to overnight oximetry showing desaturation as low as 75%. Oxygen will help to improve hypoxemia. Patient is mobile within the home. DuoNeb therapy has been
tried and is ineffective in treating hypoxemia related symptoms. Oxygen is needed to improve symptoms.
Chronic back pain--chronic dependency on opioids--f/u at [facility] pain management at [place]- Continue her medication including BROMINATION EQUIPMENT OPERATOR morphine 15 mg PO Q4H PRN for severe pain- Continue pregabalin 200 mg PO TID- Continue duloxetine 90 mg
daily--Continue carisoprodol [Soma] qid PRN
Hyperkalemia--due to adrenal insufficiency
adrenal insufficiency--confirmed by STIM test--TSH also mildly elevated and pt might need replacement--started hydrocortisone 20mg QAM and 10mg QPM
Anxiety/depression- Not longer on lorazepam /discontinued in July - Continue sertraline 25 mg PO HS
HX chronic sinus tachycardia- Continue carvedilol
Chronic normocytic anemia -Hemoglobin is likely at her baseline-No signs of active bleeding-Continue vitamin B12-EGD and colonoscopy copy in July 2024: Not remarkable for GI bloating
T2DM - Hold metformin- ISS
Morbid Obesity( BMI 41-42)- Due to excess calories- Affects all aspects of medical care
DVT Proph-- LMWH
code status--Full code
OK for d/c
Original Note:
Today's Communication/Plan
-
-Discharge planning today
Assessment / Plan
Assessment / Plan
# Migraine attack likely exacerbated by multiple factors
-History of migraine since age of 17-recently well controlled on Nurtec ODT and Emgality
-Continue to BROMINATION EQUIPMENT OPERATOR Nurtec ODT 75 mg PO PRN
-Continue Emgality 120 mg SC Q month
-Neuro on board -applied injection(sphenopalatine and occipital nerve block with local anesthetic)
-Given DHE 1 mg IV with ondansetron and diphenhydramine 50 mg for once am on 10/02/24 per neurology-suggesting brain MRI if patient on response of 2 additional treatments
-Continue PRN Reglan 10 mg for nausea
# Hypoxia
-History of obstructive sleep apnea-patient is not compliant with treatment recommendations-not using CPAP or BiPAP
-Likely secondary to obesity hypoventilation condition
- Last VBG is not reliable as much as ABG suggesting chronic respiratory acidosis given elevated HCO3 levels
- Her chronic opioid use may be contributing
-Try to avoid opioids medication given her respiratory problems
-Patient was obtained nocturnal pulse oximetry test on 10/02/2024 night per pulmonology recommendation
- Pulmonology on board: Recommending discharging on home oxygen 2 L only nightly and recommendation sleep study at outpatient setting-CM was informed
#Adrenal insufficiency
-ACTH Stimulation test done this morning complaint with adrenal insufficiency with cortisol level under 20 following cosyntropin administration
- TSH level elevated therefore adrenal insufficiency is considered primary adrenal insufficiency
- Started on hydrocortisone 20 mg am and 10 mg p.m.
-TSH level elevated to 7.39 , T4 0.99 Normal
-FSH 2.5 N (patient is on follicular phase)
# Hypothyroidism likely subclinical hypothyroidism
- TSH level elevated to 7.39
- T4 normal0.99
- Needs follow up with PCP
# Recurrent hyperkalemia possibly secondary to adrenal insufficiency
-Resolved
- Given Lokelma
- ACTH stimulation test complaint with primary adrenal insufficiency
- Will follow-up BMPs
# Chronic back pain
- Patient is on opioids on daily basis
- f/u at [facility] pain management at [place]
- Continue her medication including BROMINATION EQUIPMENT OPERATOR morphine 15 mg PO Q4H PRN for severe pain
- Continue pregabalin 200 mg PO TID
- Continue duloxetine 90 mg daily
- Continue carisoprodol [Soma] qid PRN
#Anxiety/depression
- Not longer on lorazepam /discontinued in July
- Continue sertraline 25 mg PO HS
#HX chronic sinus tachycardia
- Continue carvedilol
# Chronic normocytic anemia
-Hemoglobin is likely at her baseline
-No signs of active bleeding
-Continue vitamin B12
-EGD and colonoscopy copy in July 2024: Not remarkable for GI bleeding
#T2DM
- Hold metformin
- ISS
- Hemoglobin A1c 7.1
- Needs follow-up at outpatient setting with her PCP
#Morbid Obesity( BMI 41-42)
- Due to excess calories
- Affects all aspects of medical care
DVT Px: LMWH
Full code
Anticipated Discharge: Today
Subjective/Interval History
-
Date of Service: October 03, 2024
Patient reports feeling better in terms of her overall headache. No new complaints.
Objective Data
-
Labs:
Laboratory Results
10/03/24
06:31
WBC Pending
Hgb Pending
Hct Pending
Plt Count Pending
Sodium Pending
Potassium Pending
Chloride Pending
Carbon Dioxide Pending
BUN Pending
Creatinine Pending
Glucose Pending
Calcium Pending
Total Bilirubin Pending
AST Pending
ALT Pending
Alkaline Phosphatase Pending
Vital Signs:
Vital Signs
Temp Pulse Resp BP Pulse Ox
97.5 F 74 18 127/64 98
10/02/24 23:00 10/02/24 23:00 10/02/24 23:00 10/02/24 23:00 10/02/24 23:00
I&O
10/01/24 10/02/24 10/03/24
06:59 06:59 06:59
Intake Total 450 / 450 1320 / 1320 1480 / 1480
Balance 450 / 450 1320 / 1320 1480 / 1480
Review of Systems
-
History Source: Patient
All other systems: Reviewed and negative
Constitutional: Reports No Symptoms
Physical Exam
-
General: Well Developed, Well Nourished, Pain (mild headache ) and Morbidly Obese
HEENT: Normocephalic and Atraumatic
Respiratory: Clear to Auscultation
Cardiac: Regular Rhythm and S1/S2
GI: Soft, Nontender and Nondistended
Musculoskeletal: No Clubbing, No Cyanosis and No Edema
Skin: Warm
Neuro: Awake, Alert, Oriented, AO x 3 and Nonfocal/Grossly Intact
Psych: Calm
[2024-10-03 07:00] VITALS: BP 105/63
--- NOTE | 2024-10-03 07:15 | W.DCSUMMARY ---
Addendum entered and electronically signed by Millie Herrera MD 10/03/24 14:01:
Read, reviewed, and agree. See same day progress note for additional details. Time spent coordinating care, DC planning, review of DC plan of care with resident, transition of care, review of records in EMR, med rec, consults, notes, d/w
consultants, nursing, family, and CM = 37 minutes
Original Note:
Discharge Summary
Discharge Data
Date of Admission: 09/30/24
Date of Discharge: 10/03/24
-
Pending Results: No
Hospital Course
Disposition : Home
Primary care physician : Lowell Cooper Jr., DO
Principal Discharge diagnosis : Migraine attack likely exacerbated by multiple factors, Hypoxia, Adrenal insufficiency, Recurrent hyperkalemia
Chronic Discharge diagnosis : Chronic back pain, Chronic normocytic anemia, History of chronic sinus tachycardia, Diabetes mellitus type 2, Morbid obesity
Hospital Course :
#Migraine attack likely exacerbated by multiple factors: Patient has a known medical history of migraine since the age of 17. She presented to the hospital with headache, thought to be related to her known migraine attacks. Patient was seen by
neurology and given DHE, ondansetron, Reglan and Toradol to help her pain. She was also applied sphenopalatine and occipital nerve block to help her headache which improved her occipital headache. She was recommended to see a pain medicine
physician to arrange a Botox injection to address her migraine headache with outpatient setting. She was also recommended to have a brain MRI if her migraine headache symptoms persist and do not improve. It was planned to switch her to sertraline
25 mg medication to amitriptyline to address her sleeping issues. Patient was recommended to see her PCP and neurologist for this medication change.
#Hypoxia: Patient was found hypoxic when she presented to the hospital and given supplemental oxygen to maintain her saturation over 90s. Her VBG result was compliant with chronic respiratory acidosis and she was seen by pulmonology following the
hospital admission. The patient reported having a sleep study in 2020 which was remarkable for mild obstructive sleep apnea but she has not been on CPAP or BiPAP at home. She was obtained respiratory nocturnal oxygen saturation test which was
significant for 38 events of desaturations. She was recommended to use 2 L of nasal oxygen during the nighttime by pulmonology and recommended to have a sleep study at outpatient setting for further treatment and management. No portable oxygen
tank needed due to given only nocturnal use. She was given an oxygen tank to use at home during the night. This delivery was arranged for the patient by correctional case records supervisor . Patient was told to call [phone] before leaving from the hospital to
dispatch production truck driver to home for the delivery.
#Adrenal insufficiency and Recurrent hyperkalemia: At ER admission, patient's lab results showed elevated potassium level and also she had elevated potassium level in the past with unknown etiology. Her cortisol level was ordered and come back low.
Patient was ordered ACTH stimulation test and this test confirmed that the patient has adrenal insufficiency. Due to having elevated TSH levels, patient was considered having primary adrenal insufficiency. She was started on hydrocortisone 20
mg am and 10 mg pm. She was discussed about needing of high-dose steroids in case of if she requires any surgery or has any acute medical event. She was recommended to have a follow-up with her primary care physician to adjust the dose of
hydrocortisone based on her symptoms. Patient's TSH level was found elevated to 7.1 but T4 level was in normal range. She was recommended to follow-up with her PCP to be checked for her thyroid hormone levels.
Important imaging findings :
No imaging at this admission
Procedure findings :
No procedures at this admission
Discharge Plan
-
Patient Disposition: Home (Routine Discharge)
Discharge Diagnosis/Procedures: Migraine attack likely exacerbated by multiple factors
Hypoxia
Adrenal insufficiency
Recurrent hyperkalemia
Chronic back pain
Chronic normocytic anemia
History of chronic sinus tachycardia
Diabetes mellitus type 2
Morbid obesity
Condition: Fair
Diet: Low Cholesterol and Diabetic, Carb Controlled
Activity: As tolerated
Driving Restrictions: As prior to admission
Bathing Restrictions: None
Referrals:
Oswaldo Nieves MD [Active] - in three to four weeks
Robert Danielle MD [Active] - in one to two weeks (If migraine symptoms persists, follow-up with neurology for having a brain MRI)
Lowell Cooper Jr., DO [Family Provider] -
Prescriptions:
New
hydrocortisone 10 mg Tablet
10 mg PO QPM 30 Days Qty: 30 0RF
hydrocortisone 10 mg Tablet
20 mg PO DAILY 30 Days Qty: 60 0RF
Continued
carisoprodol [Soma] 350 MG tablet
350 mg PO BIDPRN PRN (Reason: back pain)
medroxyprogesterone 150 mg/mL Suspension
150 mg IM [id number] Qty: 0
metformin 500 MG tablet
500 mg PO BID
carvedilol [Coreg] 25 MG tablet
25 mg PO BID
atorvastatin 10 MG tablet
10 mg PO DAILY
fluticasone propionate 1 SPRAY spray,suspension
2 spray intranasal DAILY
duloxetine 60 MG capsule,delayed release(DR/EC)
90 mg PO DAILY
sertraline [Zoloft] 25 mg Tablet
25 mg PO HS
morphine 15 mg Tablet
15 mg PO Q4HPRN PRN (Reason: severe pain)
magnesium 200 mg Tablet
200 mg PO QPM
pregabalin 200 mg Capsule
200 mg PO TID
ferrous sulfate 27 mg iron Tablet
27 mg PO TUTH
Nurtec ODT 75 mg Tablet,Disintegrating
75 mg PO DAILYPRN PRN (Reason: migraines)
cyanocobalamin (vitamin B-12) [Vitamin B-12] 1,000 mcg Tablet
1,000 mcg PO DAILY 30 Days Qty: 30 0RF
zinc sulfate 50 mg zinc (220 mg) Tablet
50 mg PO QPM
calcium carbonate 500 mg calcium (1,250 mg) Tablet
500 mg PO DAILY
ergocalciferol (vitamin D2) 1,250 mcg (50,000 unit) Capsule
1,250 mcg PO WE
ibuprofen 600 mg Tablet
600 mg PO BIDPRN PRN (Reason: mild pain)
ibuprofen [IBU] 600 mg tablet
600 mg PO BID
cholecalciferol (vitamin D3) [Vitamin D3] 25 mcg (1,000 unit) Tablet
75 mcg PO DAILY
Emgality Syringe 120 mg/mL Syringe
120 mg SC QMONTH
Discharge Orders:
Discharge Patient (As Directed); Ordered 10/03/24
Ordered By: Noelle Angelo
Discharge Date and Time
Print Language: SURINAMESE
[2024-10-03 07:16] LABS: Glucose - Point of Care 87 mg/dl (70-99)
[2024-10-03 07:22] LABS: % Basophils 0.2 % (0-2); % Eosinophils 1.9 % (0-6); % Immature Granulocytes 0.3 % (0-0.5); % Monocytes 7.1 % (1.7-9.3); % Neutrophils 57.5 % (42.2-75.2); Absolute Eosinophils 0.2 10^3/uL (0-0.7); Absolute Lymphocytes 3.4 10^3/uL (1.2-3.4); Absolute Monocytes 0.7 10^3/uL (0.1-0.6); Absolute Neutrophils 5.9 10^3/uL (1.4-6.5); Hematocrit 29.7 % (37.0-47.0); Hemoglobin 9.7 g/dL (12.0-16.0); Mean Corp Hgb Conc. 32.7 g/dL (33.0-37.0); Mean Corpuscular Hgb 29.2 pg (27.0-31.0); Mean Corpuscular Volume 89.5 fL (81.0-99.0); Mean Platelet Volume 11.8 fL (7.4-10.4); Nucleated Red Blood Cells % 0 %; Platelet Count 215 10^3/uL (130-400); Red Blood Cell Count 3.32 10^6/uL (4.20-5.40); Red Cell Dist. Width 14.2 % (11.5-14.5); White Blood Cell Count 10.4 10^3/uL (4.8-10.8)
[2024-10-03] MEDS: LIPITOR 10 MG PO (07:56)
[2024-10-03] MEDS: VITAMIN D3 (cholecalciferol) 75 MCG PO (07:56)
[2024-10-03] MEDS: CORTEF 20 MG PO (07:57)
[2024-10-03] MEDS: LYRICA 200 MG PO (07:57)
[2024-10-03] MEDS: CYMBALTA DELAYED RELEASE 90 MG PO (07:57)
[2024-10-03] MEDS: VITAMIN B-12 1000 MCG PO (07:58)
[2024-10-03] MEDS: OSCAL CAL 500 500 MG PO (07:58)
[2024-10-03] MEDS: REGLAN 10 MG IV (08:05)
[2024-10-03] MEDS: TORADOL 30 MG IV (08:05)
--- NOTE | 2024-10-03 08:43 | W.PN.NEURO.1 ---
Addendum entered and electronically signed by Robert Danielle MD 10/03/24 15:39:
Studies reviewed.
I have personally examined the patient. I reviewed and agree with the COTTON WEIGHER OPERATOR's Note.
My addenda:
Awake, alert, interactive. No acute distress.
Speech intact. No tremor.
Extra-ocular movements grossly intact.
Facial movements full and symmetric. Hearing intact to normal conversational volume.
Neck: full ROM.
Chest: no dyspnea
Heart: no JVD
Ext: (-) Clubbing, (-) Cyanosis, (-) Edema
IMPRESSIONS/RECOMMENDATIONS:
Abrupt onset of intractable migraine
Provide additional dose of dihydroergotamine with diphenhydramine and ondansetron
Outpatient botulinum toxin injection
Consider remote electrical stimulator device to reduce likelihood of migraine
D/W patient
Will continue to follow as needed. Patient should be followed by her usual outpatient pain management physician.
Original Note:
Today's Communication / Plan
-
.
Neuro Assessment/Plan
Assessment
migraines without aura, intractable
occipital neuralgia bilateral
bilateral occipital nerve block + sphenopalatine ganglion block performed at bedside bupivacaine only without success
migraines previously well controlled, now exacerbated due to CO2 retention and obstructive sleep apnea as well as anemia
Plan
Ondansetron with DHE dosing
Switch Sertraline 25 mg nightly to Amitriptyline 25 mg nightly, side effects reviewed and may also help with sleep
Continue duloxetine 90 mg daily
Monitor for signs and symptoms of serotonin syndrome/serotonin toxicity such as hyperreflexia, clonus, hyperthermia, diaphoresis, tremor, autonomic instability and mental status changes.
Continue Emgality injections outpatient for preventative migraine treatment
Follow up with pain management outpatient for Botox treatment for migraine
Consider MRI of brain if unresponsive to additional therapies
Will follow as needed
Subjective/Objective
Subjective Data
Date of Service: October 03, 2024
'My head is worse than yesterday.' Headache 12/17, DHE helped yesterday. Pain in back of head. Able to sleep last night. Taking Sertraline 25 mg nightly and has been on it about 4 years prescribed by her PCP, taken propranolol in the past but
discontinued due to weight gain. Currently on Emgality for preventative and finds this effective.
Objective Data
Vital Signs
Temp Pulse Resp BP Pulse Ox
98.3 F 75 12 105/63 95
10/03/24 07:00 10/03/24 07:00 10/03/24 07:00 10/03/24 07:00 10/03/24 07:00
Lab Results
10/03/24 06:31
Sodium Cancelled 10/03/24 06:31
Potassium Cancelled 10/03/24 06:31
BUN Cancelled 10/03/24 06:31
Glucose Cancelled 10/03/24 06:31
Calcium Cancelled 10/03/24 06:31
Patient Allergies
Sulfa (Sulfonamide Antibiotics) Allergy (Verified 09/30/24 14:34)
HIVES, SOB
bee stings Allergy (Uncoded 09/30/24 14:34)
severe swelling
Review of Systems
-
History Source: Patient
All other systems: Reviewed and negative
EENT: Other (photophobia, phonophobia)
Respiratory: Negative Trouble Breathing
Cardiac: Negative Chest Pain
Abdomen/GI: Nausea; Negative Incontinence of Stool
Genitourinary: Negative Incontinence
Musculoskeletal: Back Pain and Neck Pain
Neuro: Headache; Negative Dizzy
Physical Exam
-
General: No Apparent Distress and Appears Stated Age
Eyes: Round OU, [employer] Conjunctivae and No Ptosis
HEENT: Anicteric and Moist Mucous Membranes
Neck: Full Range of Motion
Respiratory: No Dyspnea
Cardiac: No JVD
GI: Non-distended
Skin: Unremarkable
Extremities: No Clubbing, No Cyanosis and No Edema
Psych: Intact Judgement/Insight
Extended Neurological Exam
Mood & Affect: Mood Unremarkable and Affect Unremarkable
Attention Span & Concentration: Awake, Alert and Interactive
Memory: Unremarkable
Tremor: Hand Tremor Absent and Head Tremor Absent
Speech: Quality Unremarkable and Quantity Unremarkable
Cranial Nerve II: Left Eye: Pupillary Size Unremarkable and Visual Snowden Grossly Intact
Cranial Nerve II: Right Eye: Pupillary Size Unremarkable and Visual Snowden Grossly Intact
Cranial Nerves III, IV, : Extraocular Movement: Grossly Intact
Cranial Nerve VII: Facial Symmetry: Normal Facial Symmetry
Cranial Nerve VIII: Hearing: Unremarkable Hearing to Normal Conversational Volume
Cranial Nerve XI: Shoulder Shrug: Unremarkable
Muscle Strength, Overall: Spontaneously Moves
Muscle Bulk & Tone: Bulk Unremarkable and Tone Unremarkable
Touch Sensation: Unremarkable
Coordination: [id number] Testing Unremarkable
Data Reviewed
-
Labs: Report Reviewed
Reviewed with: Physician and Patient
Old Records: Summarized
[2024-10-03 09:34] LABS: ALT (SGPT) 14 U/L (0-35); AST (SGOT) 15 U/L (14-36); Albumin 3.6 g/dl (3.5-5.0); Alkaline Phosphatase 56 U/L (38-126); Blood Urea Nitrogen 19 mg/dl (7-17); Calcium 8.7 mg/dl (8.4-10.2); Carbon Dioxide 35 mmol/L (22-30); Chloride 102 mmol/L (98-107); Estimated Creatinine Clearance 93 ml/min; Glucose 129 mg/dl (70-99); Potassium 4.9 mmol/L (3.5-5.1); Sodium 139 mmol/L (135-145); Total Bilirubin 0.5 mg/dl (0.2-1.3); Total Protein 6.4 g/dl (6.3-8.2); eGFR > 60.00
[2024-10-03] MEDS: ZOFRAN 8 MG IV (09:47)
[2024-10-03] MEDS: BENADRYL 50 MG IV (09:47)
[2024-10-03] MEDS: DHE-45 1 MG IV (09:48)
--- NOTE | 2024-10-03 11:01 | CM ---
Addendum entered by Bharati Ramos 10/03/24 13:27:
[facility] to deliver home O2 for nocturnal use at patient discharge. Patient aware of need to call for delivery. CM will continue to follow for discharge planning needs.
Plan; home with [facility] home O2
Original Note:
Patient seen at bedside, patient requested referral to [facility] following review of options. CM will continue to follow for discharge planning needs.
Plan; home with [facility] home O2 for night time use, declined VN
[2024-10-03 11:18] LABS: Glucose - Point of Care 134 mg/dl (70-99)
[2024-10-03 13:44] VITALS: BP 136/79
== END 2024-10-03 14:24 | disposition home or self-care (01) | DRG 103 ==
LOC: 2 NORTH 20:44
PROVIDERS: Clinical Nurse Specialist Family Health; Student in an Organized Health Care Education/Training Program; ADMITTING PHYSICIAN Internal Medicine; ATTENDING PHYSICIAN Internal Medicine; CONSULT PHYSICIAN Psychiatry & Neurology Clinical Neurophysiology; EMERGENCY PHYSICIAN Student in an Organized Health Care Education/Training Program; FAMILY PHYSICIAN Family Medicine; OTHER PHYSICIAN Internal Medicine
PROC: 5A09357 Assistance with Respiratory Ventilation, Less than 24 Consecutive Hours, Continuous Positive Airway Pressure (ICD-10-PCS; 2024-09-30)
DX: G43.019 Migraine without aura, intractable, without status migrainosus (principal); E66.2 Morbid (severe) obesity with alveolar hypoventilation; Z68.41 Body mass index [BMI] 40.0-44.9, adult; N17.9 Acute kidney failure, unspecified; F11.20 Opioid dependence, uncomplicated; J96.12 Chronic respiratory failure with hypercapnia; J96.11 Chronic respiratory failure with hypoxia; E27.1 Primary adrenocortical insufficiency; E87.5 Hyperkalemia; G89.29 Other chronic pain; E66.813 Obesity, class 3; D63.8 Anemia in other chronic diseases classified elsewhere; D50.0 Iron deficiency anemia secondary to blood loss (chronic); E53.8 Deficiency of other specified B group vitamins; E11.9 Type 2 diabetes mellitus without complications; K59.03 Drug induced constipation; T40.605A Adverse effect of unspecified narcotics, initial encounter; N80.9 Endometriosis, unspecified; J45.990 Exercise induced bronchospasm; I95.9 Hypotension, unspecified; D72.829 Elevated white blood cell count, unspecified; M54.81 Occipital neuralgia; F41.1 Generalized anxiety disorder; E03.9 Hypothyroidism, unspecified; F32.9 Major depressive disorder, single episode, unspecified; I10 Essential (primary) hypertension; E78.5 Hyperlipidemia, unspecified; M79.7 Fibromyalgia; Z60.2 Problems related to living alone; I25.2 Old myocardial infarction; Z93.6 Other artificial openings of urinary tract status; Z56.0 Unemployment, unspecified; Z90.49 Acquired absence of other specified parts of digestive tract; Z82.49 Family history of ischemic heart disease and other diseases of the circulatory system; Z88.2 Allergy status to sulfonamides; Z91.030 Bee allergy status; Z91.199 Patient's noncompliance with other medical treatment and regimen due to unspecified reason; Z87.440 Personal history of urinary (tract) infections; Z79.84 Long term (current) use of oral hypoglycemic drugs
CPT/HCPCS: 36600; 80053; 81003; 81015; 81025; 82533; 82805; 82962; 83001; 83036; 83735; 84132; 84439; 84443; 85025; 93005; 94660; 94762; 96361; 96374; 96375; 96376; 99291

== ENCOUNTER 2025-02-07 19:03 | Emergency (ER) | payer MEDICARE, SELFPAY ==
[2025-02-07 19:09] VITALS: BP 115/85
[2025-02-07 19:27] LABS: Hematocrit 37.9 % (37.0-47.0); Hemoglobin 12.3 g/dL (12.0-16.0); Mean Corp Hgb Conc. 32.5 g/dL (33.0-37.0); Mean Corpuscular Volume 95.2 fL (81.0-99.0); Nucleated Red Blood Cells % 0 %; Platelet Count 280 10^3/uL (130-400); Red Cell Dist. Width 13.1 % (11.5-14.5)
[2025-02-07 19:51] LABS: ALT (SGPT) 14 U/L (0-35); AST (SGOT) 14 U/L (14-36); Albumin 4.3 g/dl (3.5-5.0); Alkaline Phosphatase 72 U/L (38-126); Blood Urea Nitrogen 26 mg/dl (7-17); Calcium 9.4 mg/dl (8.4-10.2); Carbon Dioxide 25 mmol/L (22-30); Chloride 106 mmol/L (98-107); Glucose 231 mg/dl (70-99); Potassium 4.7 mmol/L (3.5-5.1); Sodium 139 mmol/L (135-145); Total Protein 7.3 g/dl (6.3-8.2); eGFR > 60.00
[2025-02-07 22:43] VITALS: BP 118/79
[2025-02-07 22:45] VITALS: BMI 42.6
[2025-02-07] MEDS: COMPAZINE 10 MG IV (23:37)
[2025-02-07] MEDS: BENADRYL 50 MG IV (23:37)
[2025-02-07] MEDS: DECADRON 10 MG IV (23:37)
[2025-02-07] MEDS: TORADOL 30 MG IV (23:37)
[2025-02-07] MEDS: NSS 1000 IV (23:38)
[2025-02-07] MEDS: MORPHINE SULFATE 4 MG IV (23:38)
--- NOTE | 2025-02-08 02:29 | ED.GENMED ---
History of Present Illness
General
Chief Complaint: Headache
Source: patient and previous hospital records (Hospitalization September of this year for treatment of acute exacerbation of chronic migraine as well as hypoxia, adrenal insufficiency and recurrent hyperkalemia.)
Exam Limitations: none
Time Seen by Provider: 02/07/25 22:23
Nursing documentation reviewed up to this point in time: agreed with
History of Present Illness
History of Present Illness:
This is a 45-year-old woman with history of chronic, more than 20-year history of migraine headaches. She reports that her migraines have reduced in severity and frequency since she started treatment with Emgality and every other day dosing of
Nurtec. However, fluctuations in barometric pressure still trigger episodes. She complains of her typical migraine headache that has been persistent over the past week and a half, unrelieved with her usual abortive medications. She also has
history of chronic low back pain, narcotic dependent. Prescribed MS IR 15 mg, 150 tablets/month. She follows with pain management for her chronic low back pain as well as chronic migraine headaches.
Previously hospitalized here September of this year initially presented with exacerbation of migraine headache but also found to have hyperkalemia as well as adrenal insufficiency. Started on hydrocortisone 20 mg in the a.m. and 10 mg in the p.m. which
she continues.
She has history of [id number] diabetes, maintained on metformin.
During hospitalization in September, migraine was treated with Reglan, Toradol, DHE. She also received sphenopalatine as well as occipital nerve blocks which temporized her headache for about 1 to 2 days. There was consideration for Botox injections but
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
She denies fever and or chills, no nasal congestion nor cough nor sore throat. No weakness nor numbness. She does admit to nausea but has had no vomiting.
She denies risk of . Maintained on Depo-Provera with last injection December of this year.
Past History
Past History
ED Past Medical History: NIDDM, PR, Psychiatric (Major depression, generalized anxiety disorder), Other (Anemia of iron deficiency, B12 deficiency, left kidney abscess from urinary tract infection, chronic back pain, endometriosis, cholelithiasis,
obstructive sleep apnea), Other (Fibromyalgia, chronic low back pain-narcotic dependent. Migraine headaches) and Other (Adrenal insufficiency)
ED Past Surgical History: Appendectomy, Cholecystectomy and Urological (Left nephrostomy drain)
Social History
Tobacco: Non-smoker
Alcohol: None
Drug: None
Living: with family
Employment: Employed
Family History
Family History: CAD and Cancer
Phy Exam
Physical Exam
Physical Exam:
GENERAL: 45-year-old overweight woman appears her stated age, awake and alert, pleasant, easily communicative and in no acute distress. Afebrile. Normotensive.
EYE: pupils equal and reactive. anicteric
NECK: Supple, nontender, no meningismus, no significant adenopathy.
ENT: oral mucosa is moist. No rhinorrhea.
CARDIAC: Regular rate and rhythm. no murmur.
LUNGS: Clear breath sounds bilaterally, no acute respiratory distress, no wheezes/rales/rhonchi
ABDOMEN: Soft, nondistended, without focal tenderness
NEUROLOGICAL: Alert and oriented x3, no focal neuro deficits.
SKIN: Warm and dry, normal color, skin intact. No rash.
MUSCULOSKELETAL: No C/C/E. peripheral pulses are full and equal b/l. No palpable tenderness.
PSYCH: Normal and appropriate interaction.
Course
Orders/Labs/Results
Orders:
Orders
02/07/25 19:19
CMP [Comprehensive Metabolic Panel] Urgent
Complete Blood Count/With Diff Urgent
02/07/25 22:57
0.9% Sodium Chloride 1000 ml [Nss] 1,000 ml IV BOLUS
Dexamethasone Sod Phosphate [Decadron] 10 mg IV NOW STA
Diphenhydramine [Benadryl] 50 mg IV NOW STA
Ketorolac [Toradol] 30 mg IV NOW STA
Morphine Sulfate 4 mg IV NOW STA
Prochlorperazine [Compazine] 10 mg IV NOW STA
02/08/25 03:37
Ketorolac [Toradol] 15 mg IV NOW STA
02/08/25 03:43
Lidocaine 2% Mpf [Xylocaine Mpf 2%] 175 mg 0.9% Sodium Chloride 100 ml [Nss] 100 ml IV NOW
Abnormal Lab Results
02/07/25
19:19
WBC 16.0 H 10^3/uL
(4.8-10.8)
RBC 3.98 L 10^6/uL
(4.20-5.40)
MCHC 32.5 L g/dL
(33.0-37.0)
MPV 11.4 H fL
(7.4-10.4)
Abs Immat Gran (auto) 0.1 H 10^3/uL
(0-0.05)
Absolute Neuts (auto) 10.5 H 10^3/uL
(1.4-6.5)
Absolute Lymphs (auto) 4.2 H 10^3/uL
(1.2-3.4)
Absolute Monos (auto) 1.0 H 10^3/uL
(0.1-0.6)
BUN 26 H mg/dl
(7-17)
Glucose 231 H mg/dl
(70-99)
02/07/25 19:19
02/07/25 19:19
Vital Signs
Initial and Last Documented VS:
Initial Vital Signs
Temp Pulse Resp BP Pulse Ox
98.5 F 97 16 115/85 98
02/07/25 19:09 02/07/25 19:09 02/07/25 19:09 02/07/25 19:09 02/07/25 19:09
Last Documented Vital Signs
Temp Pulse Resp BP Pulse Ox
98.5 F 97 16 118/79 98
02/07/25 19:09 02/07/25 19:09 02/07/25 19:09 02/07/25 22:43 02/08/25 02:42
MDM/Problems Addressed
Differential Diagnosis Includes:
Differential includes, in no particular order and is not limited to:
Migraine headache
Tension type headache
Cluster headache
Medication overuse headache
Sinus headache
Cervicogenic headache
Temporal arteritis
Adrenal crisis from adrenal insufficiency
Posttraumatic headache from chiropractic neck adjustment
Hormonal headaches
MDM/Problems Addressed:
Acute: Migraine
Overall well in appearance. Afebrile. Nothing in history nor exam to suggest infectious process. No neurologic deficits.
Lengthy discussion with patient regarding her usual treatment for migraine headaches and will plan to continue her usual morphine but will hold off on additional narcotics for migraines and instead will treat with Compazine, Toradol, Benadryl, IV
fluids. Will also give an IV dose of Decadron. She remains hemodynamically stable, nothing to suggest adrenal crisis.
At this point no indication for imaging.
Laboratory studies are reassuring, mildly elevated white blood cell count, similar sporadic elevations noted previously.
Chemistries are unremarkable with normal potassium. Normal creatinine. Random glucose elevated at 231 without acidosis on electrolytes.
Chronic conditions affecting care:
Adrenal insufficiency
Chronic conditions affecting care: DM and Other (Migraine headache, chronic pain syndrome-narcotic dependent; adrenal insufficiency)
*Pulse Oximetry
SaO2: 98
Oxygen Mode of Delivery: Room air
Patient hypoxic: no
*Critical Care Note
Total Time (30-74mins, 75-104mins- exclusive of procedures): Not Applicable
Update Note
Update Note:
00:40
Patient sleeping upon reevaluation.
Will continue to observe.
03:30
Patient is now awake.
Reports continued headache, mild improvement.
Overall continues to appear comfortable.
Will give an additional small IV dose of Toradol, will trial IV lidocaine.
05:50
Patient continues to sleep when reassessed on multiple occasions.
Will discharge to home with recommendations for prompt follow-up with her rail car painter/sandblaster.
Due to ongoing headaches, encouraged to follow-up with neurology as well.
ED Attending Note
-
Portions of this chart may have been created with voice recognition software.� Occasional wrong word or��sound alike� substitutions may have occurred due to the inherent limitations of voice recognition software.
Discharge Plan
Departure
Patient Disposition: Home (Routine Discharge)
Date of Disposition: 02/08/25
Time of Disposition: 05:53
Patient with high blood pressure during this ER visit?: No
Condition: Good
Discharge Problem:
Acute exacerbation of chronic migraine h
Instructions: Migraines (DC)
Prescriptions:
No Action
carisoprodol [Soma] 350 MG tablet
350 mg PO BIDPRN PRN (Reason: back pain)
medroxyprogesterone 150 mg/mL Suspension
150 mg IM [id number] Qty: 0
metformin 500 MG tablet
500 mg PO BID
carvedilol [Coreg] 25 MG tablet
25 mg PO BID
atorvastatin 10 MG tablet
10 mg PO DAILY
fluticasone propionate 1 SPRAY spray,suspension
2 spray intranasal DAILY
duloxetine 60 MG capsule,delayed release(DR/EC)
90 mg PO DAILY
sertraline [Zoloft] 25 mg Tablet
25 mg PO HS
morphine 15 mg Tablet
15 mg PO Q4HPRN PRN (Reason: severe pain)
magnesium 200 mg Tablet
200 mg PO QPM
pregabalin 200 mg Capsule
200 mg PO TID
ferrous sulfate 27 mg iron Tablet
27 mg PO TUTH
Nurtec ODT 75 mg Tablet,Disintegrating
75 mg PO DAILYPRN PRN (Reason: migraines)
cyanocobalamin (vitamin B-12) [Vitamin B-12] 1,000 mcg Tablet
1,000 mcg PO DAILY 30 Days Qty: 30 0RF
zinc sulfate 50 mg zinc (220 mg) Tablet
50 mg PO QPM
calcium carbonate 500 mg calcium (1,250 mg) Tablet
500 mg PO DAILY
ergocalciferol (vitamin D2) 1,250 mcg (50,000 unit) Capsule
1,250 mcg PO WE
ibuprofen 600 mg Tablet
600 mg PO BIDPRN PRN (Reason: mild pain)
ibuprofen [IBU] 600 mg tablet
600 mg PO BID
cholecalciferol (vitamin D3) [Vitamin D3] 25 mcg (1,000 unit) Tablet
75 mcg PO DAILY
Emgality Syringe 120 mg/mL Syringe
120 mg SC QMONTH
hydrocortisone 10 mg Tablet
10 mg PO QPM 30 Days Qty: 30 0RF
hydrocortisone 10 mg Tablet
20 mg PO DAILY 30 Days Qty: 60 0RF
Referrals:
Zeferino Garay MD [Active, Neurology] - Call in 1-3 days for appt
Lowell Cooper Jr., DO [Family Provider, Family Practice] - Call in 1-3 days for appt
Interventions
Interventions:
*Risk Screen - Suicide Last Done: 02/07/25 19:09
*General Assessment Last Done: 02/07/25 19:09
*Neglect/Abuse Screening Last Done: 02/07/25 19:09
*ED- Fall Risk Assessment Last Done: 02/07/25 19:09
*ED COVID-19 Vaccine History Last Done: 02/07/25 19:09
*ED Influenza Vaccine History Last Done: 02/07/25 19:09
ED- Neurological Assessment Last Done: 02/07/25 23:40
Discharge Date and Time
Print Language: GREENLANDIC
[2025-02-08] MEDS: TORADOL 15 MG IV (04:34)
[2025-02-08] MEDS: XYLOCAINE MPF 2% 108.75 MG IV (04:35)
== END 2025-02-08 06:37 | disposition home or self-care (01) ==
LOC: EMR 19:03
PROVIDERS: Emergency Medicine; EMERGENCY PHYSICIAN Emergency Medicine; FAMILY PHYSICIAN Family Medicine
DX: G43.909 Migraine, unspecified, not intractable, without status migrainosus (principal); E27.40 Unspecified adrenocortical insufficiency; E11.9 Type 2 diabetes mellitus without complications; E66.3 Overweight; M79.7 Fibromyalgia; G89.4 Chronic pain syndrome; G47.33 Obstructive sleep apnea (adult) (pediatric); Z90.49 Acquired absence of other specified parts of digestive tract; F11.20 Opioid dependence, uncomplicated
CPT/HCPCS: 96374; 96375; 96376; 96361; 99284; 80053; 85025